=== PATIENT | female | born 1955 | race Caucasian/White ===

== ENCOUNTER 2022-01-04 10:13 | Inpatient (IN) | payer OTHER ==
[~2022-01-04] VITALS: Ht 147.3 cm; Wt 39.2 kg
[~2022-01-04 10:13] MED LIST: ALBU2.5V8 IH; ASPI-630 PO; ATOR40TA59 PO; CARV6.2511 PO; DICY20TA PO; ESOM40CA PO; FLUT12AE IH; FLUT12AE2 IH; FURO20TA3 PO; GABA300C18 PO; LIDO700A21 TP; LISI10TA16 PO; QUET25TA5 PO; SPIR25TA5 PO; SUCR1TAB PO; TRAZ-118 PO; VENL150T PO
[2022-01-04] MEDS ORDERED: ONDANSETRON PF 4 MG/2 ML VIAL. IVP ONE ×2 (10:45→11:00)
[2022-01-04] MEDS ORDERED: IOHEXOL 300 MG/ML 100ML VIAL. IV ONE ×3 (11:00→15:00)
[2022-01-04] MEDS ORDERED: CONTRAST GIVEN. MC PRN ×3 (11:00→15:15)
[2022-01-04] MEDS ORDERED: FAMOTIDINE 20 MG/2 ML VIAL IVP ONE (11:00)
[2022-01-04] MEDS ORDERED: IV NORMAL SALINE 1000ML BAG 1,000 ML IV SCH (11:00)
--- NOTE | 2022-01-04 11:16 | RAD ---
EXAM: XR CHEST 1V 01/04/2022 10:54 AM CLINICAL INDICATION: Abdominal pain, epigastric pain COMPARISON: Abdominal series radiograph 07/21/2021 TECHNIQUE: AP view of the chest FINDINGS: The heart is normal in size. The lungs are well-expanded. There is a large left hilar mass measuring 4.8 x 3.5 cm. There is also fullness in the left hilar region which could represent lymphad enopathy. Patchy opacities in the right lung and left lung base have resolved. The lungs are well-exp anded. There is no pleural effusion or pneumothorax. No acute osseous abnormality. IMPRESSION: Large left hilar mass measuring 4.8 cm suspicious for malignancy. [facility] FOR INTERNAL CODING PURPOSES Critical result: Findings discussed with RODGER BAHENA DO at 01/04/2022 11:14 AM. RESULT CODE: (C) Electronically signed by: Yessy Marte MD (01/04/2022 11:14 AM) [id number]
[2022-01-04] MEDS ORDERED: MORPHINE SULFATE 4 MG/ML INJ. IVP ONE (12:00)
--- NOTE | 2022-01-04 13:01 | EKG ---
[facility] [address] [place] [address] Test Date: 2022-01-04 Test Time: 11:56:24 Pat Name: KVNG CHRISTIE Department: Room: Gender: F Estimator And Drafter: : 1955 Requested By: RODGER BAHENA Order Number: [id number] Reading MD: Jeffy Traylor Measurements Intervals [place] Rate: 76 P: 57 ME: 130 QRS: 91 QRSD: 80 T: 40 QT: 394 QTc: 448 Interpretive Statements SINUS RHYTHM RIGHTWARD AXIS Electronically Signed On 01-05-2022 16:34:[address] REPAIRER by Jeffy Traylor
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
[2022-01-04 13:59] LABS: BILIRUBIN,URINE NEGATIVE (NEG); CLARITY,URINE CLEAR; COLOR,URINE YELLOW; NITRITE,URINE NEGATIVE (NEG); PROTEIN,URINE NEGATIVE (NEG-TRACE); UROBILINOGEN,URINE 0.2 mg/dL (0.2 mg/dL)
[2022-01-04 14:09] LABS: BACTERIA,URINE 0 /HPF (0-FEW); RBC,URINE 0 /HPF (0-2)
[2022-01-04 14:41] LABS: CALCIUM 8.9 mg/dL (8.5-10.1); CREATININE 0.6 mg/dL (0.6-1.0); GFR 99.4; POTASSIUM 4.8 mmol/L (3.5-5.1)
[2022-01-04 14:45] LABS: BASO # 0.1 x10^3/uL (0.0-0.2); BASO % 1 % (0-3); EOS % 0 % (0-3); HEMATOCRIT 38.5 % (36.0-47.0); HEMOGLOBIN 12.3 g/dL (12.0-15.5); LYMPH % 19 % (24-48); MEAN CORPUSCULAR HEMOGLOBIN 26 pg (25-35); MEAN CORPUSCULAR HGB CONC 32 g/dL (31-37); MEAN CORPUSCULAR VOLUME 82 fL (79-100); MONO # 0.9 x10^3/uL (0.0-1.1); MONO % 8 % (0-9); NEUT # 7.7 x10^3/uL (1.8-7.7); NEUT % 72 % (31-73); PLATELET COUNT 381 x10^3/uL (140-400); RED CELL DISTRIBUTION WIDTH 18.9 % (11.5-14.5); WHITE BLOOD COUNT 10.7 x10^3/uL (4.0-11.0)
[2022-01-04 14:47] LABS: ALBUMIN 3.4 g/dL (3.4-5.0); DIRECT BILIRUBIN 0.2 mg/dL (0.0-0.2); TOTAL BILIRUBIN 0.4 mg/dL (0.2-1.0)
--- NOTE | 2022-01-04 15:30 | EKG ---
[facility] [address] [place] [address] Test Date: 2022-01-04 Test Time: 14:46:46 Pat Name: KVNG CHRISTIE Department: Room: Gender: F Digital Marketing Lead: : 1955 Requested By: RODGER BAHENA Order Number: [id number] Reading MD: Jeffy Traylor Measurements Intervals [place] Rate: 30 P: 43 IN: 130 QRS: 47 QRSD: 78 T: 48 QT: 554 QTc: 393 Interpretive Statements SINUS BRADYCARDIA LEFT ATRIAL ABNORMALITY MODERATE AMPLITUDE CRITERIA FOR LVH Electronically Signed On 01-05-2022 16:33:52 MACHINE FORMER by Jeffy Traylor
[2022-01-04] MEDS: NICOTINE 14MG PATCH. TD SCH (16:18)
--- NOTE | 2022-01-04 16:22 | RAD ---
EXAM: CT OF THE CHEST, ABDOMEN AND PELVIS WITH/WITHOUT CONTRAST. HISTORY: Left hilar mass, chest/abdominal pain. TECHNIQUE: Computed tomography of the chest, abdomen and pelvis was performed performed before and af ter the intravenous administration of iodinated contrast Isovue 370. One or more of the following ind ividualized dose reduction techniques were utilized for this examination: 1. Automated exposure control. 2. Adjustment of the mA and/or kV according to patient size. 3. Use of iterative reconstruction technique. COMPARISON: Today's chest radiograph, 07/20/2021. FINDINGS: Bone windows reveal no suspicious lesions. A left upper lobe mass measures 4.3 x 3.7 cm. Is lymph node metastases are noted within the lateral a ortic station measuring 2.6 x 1.5 cm. These are contiguous with left suprahilar nodes measuring up to 1.7 x 1.3 cm. A lower right paratracheal node is indeterminate in this setting at 1.5 x 0.9 cm. Left axillary nodes are small but rounded and avidly enhancing, also indeterminate at up to 1.0 x 0.9 cm. There is no pleural or pericardial effusion. The heart is not enlarged. Coronary atherosclerotic calc ifications are noted. Lung windows reveal no infiltrates. Hypoenhancing hepatic lesions are consistent with metastatic disease. A segment 2 lesion measures 3.9 x 3.4 cm. Another in segment 4A measures 3.2 x 3.0 cm. Another and IVb measures 2.7 cm. A left adren al nodule is consistent with a metastasis and measures 2.3 x 1.6 cm. Gallstones are noted. Mild gallbladder wall thickening is suspected. A stone is suspected within the distal common duct just proximal to the ampulla measuring 4 mm. The common duct measures 7 mm. The spleen, pancreas and kidneys are unremarkable. There are no pathologically enlarged retroperitone al or mesenteric lymph nodes. There is no small bowel obstruction. An anastomotic suture line is noted along a small bowel loop in the right lower quadrant. There is stranding within the omental fat in the right lower quadrant. Ther e is no ascites. The uterus is surgically absent. IMPRESSION: 1. 4.3 x 3.7 cm left upper lobe mass consistent with primary bronchogenic carcinoma. 2. Metastatic disease involves the mediastinal lymph nodes, the liver and left adrenal gland. Left ax illary nodes are indeterminate. 3. Cholelithiasis with mild gallbladder wall thickening. Correlate with other data to exclude acute c holecystitis. 4. Suspect a common duct stone at the ampulla. Borderline biliary dilatation. MRCP or ERCP could furt her evaluate. 5. Stranding within the omental fat in the right lower quadrant may reflect an edematous state. Carci nomatosis cannot be fully excluded in this setting. Electronically signed by: Shemar Melendez MD (01/04/2022 4:20 PM) [facility]
--- NOTE | 2022-01-04 17:43 | RAD ---
INDICATION: Reason: abd pain, cholelithiasis, r/o cholecystitis / Spl. Instructions: / History: COMPARISON: CT from same day TECHNIQUE: Grayscale and color ultrasound images obtained through the abdomen. FINDINGS: Pancreas: Not well seen secondary to overlying structures obscuring. Liver: Coarsened liver echotexture. Multiple masses are seen within the liver including one in the le ft lobe measuring up to 40 x 37 mm and a couple in the right lobe measuring 24 x 27 and 39 x 26 mm Gallbladder: Gallstones. There is some pain within the area. Common Bile Duct: Not dilated. Right Kidney: No hydronephrosis. Aorta/IVC: Atherosclerotic disease IMPRESSION: * Multiple liver masses concerning for neoplasm. * Gallstones are identified with pain to transducer pressure in the right upper quadrant. The wall i s borderline in thickness. Electronically signed by: Clifton Honeycutt MD (01/04/2022 5:41 PM) [id number]
[2022-01-04] MEDS ORDERED: SUCRALFATE 1 GM TABLET. PO PRN (18:15)
[2022-01-04] MEDS ORDERED: GABAPENTIN 300 MG CAPSULE. PO PRN (18:15)
[2022-01-04] MEDS: CARVEDILOL 6.25 MG TABLET. PO SCH (18:30)
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
[2022-01-04 19:00] VITALS: BP 117/75
[2022-01-04] MEDS: BUDESONIDE 0.5 MG/2 ML NEBU. NEB SCH (20:00)
[2022-01-04] MEDS: traZODone 50 MG TABLET. PO SCH (20:24)
[2022-01-04] MEDS: DICYCLOMINE HCL 10 MG CAPSULE PO PRN (20:25)
[2022-01-04] MEDS: ATORVASTATIN CALCIUM 40 MG TABLET. PO SCH (20:25)
[2022-01-04] MEDS: QUEtiapine 25 MG TABLET. PO SCH (20:25)
[2022-01-04] MEDS: LISINOPRIL 10 MG TABLET PO SCH (20:25)
[2022-01-04] MEDS ORDERED: FLUTICASONE PROPIONATE IH SCH (21:00)
[2022-01-04] MEDS: MORPHINE SULFATE 2 MG/ML INJ. IVP PRN (23:12)
[2022-01-04] MEDS: ONDANSETRON PF 4 MG/2 ML VIAL. IVP PRN (23:12)
[2022-01-04] MEDS ORDERED: LIDO:MAALOX 1:1 20 ML SINGLE DOSE. PO PRN (23:15)
[2022-01-04 23:24] VITALS: BP 109/51
[2022-01-05] MEDS: MORPHINE SULFATE 2 MG/ML INJ. IVP PRN ×5 (01:12→19:26)
[2022-01-05] MEDS: ONDANSETRON PF 4 MG/2 ML VIAL. IVP PRN ×4 (03:59→19:26)
[2022-01-05 07:00] VITALS: BP 106/62
[2022-01-05] MEDS: PANTOPRAZOLE 40 MG TABLET.DR. PO SCH (07:30)
[2022-01-05] MEDS: BUDESONIDE 0.5 MG/2 ML NEBU. NEB SCH ×2 (08:00→21:06)
[2022-01-05] MEDS: VENLAFAXINE XR 37.5 MG CAP.ER.24H. PO SCH (08:27)
[2022-01-05] MEDS: FUROSEMIDE 20 MG TABLET PO SCH (08:28)
[2022-01-05] MEDS: ASPIRIN CHEWABLE 81 MG TABLET. PO SCH (08:28)
[2022-01-05] MEDS: SPIRONOLACTONE 25 MG TABLET PO SCH (08:28)
[2022-01-05] MEDS: CARVEDILOL 6.25 MG TABLET. PO SCH ×2 (08:29→17:15)
[2022-01-05] MEDS: NICOTINE 14MG PATCH. TD SCH (08:31)
--- NOTE | 2022-01-05 09:36 | PDOC2 ---
CONSULT Date of Consult Date of Consult DATE: 01/05/22 TIME: 09:32 Reason for Consult Reason for Consult: Lung mass and liver metastasis Referring Physician Referring Physician: Dr. Carmona Identification/Chief Complaint Chief Complaint Abdominal pain and chest pain Source Source: Chart review, Patient History of Present Illness Reason for Visit: Hansa Skinner is a 66-year-old female who has been admitted to [facility] after presenting with abdominal pain. She received a chest x-ray which showed a left hilar mass. CT of the chest, abdomen and pelvis was obtained for further evaluation and showed a 4.3 x 3.7 cm left upper lobe mass concerning for primary bronchogenic carcinoma. In addition, mediastinal lymphadenopathy, liver masses and left adrenal gland mass was noted. CT also showed cholelithiasis with gallbladder thickening as well as choledocholithiasis with a stone at the ampulla. Additional evaluation was recommended. Stranding in the omental fat in the right lower quadrant was noted. Ultrasound abdomen was obtained for further evaluation and showed pericholecystic fluid and tenderness to palpation indicative of sonographic Dolan sign. Medical oncology consultation has been requested given the patient's presentation with suspected metastatic cancer. 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 Status: Acute Current Medications Current Medications Current Medications Ondansetron HCl (Zofran) 4 mg 1X ONCE IVP Last administered on 01/04/22at 10:45; Start 01/04/22 at 10:45; Stop 01/04/22 at 10:46; Status DC Sodium Chloride 1,000 ml @ 1,000 mls/hr Q1H IV Last administered on 01/04/22at 11:00; Start 01/04/22 at 11:00; Stop 01/04/22 at 11:59; Status DC Ondansetron HCl (Zofran) 4 mg 1X ONCE IVP Last administered on 01/04/22at 14:23; Start 01/04/22 at 11:00; Stop 01/04/22 at 11:01; Status DC Famotidine (Pepcid Vial) 20 mg 1X ONCE IVP Last administered on 01/04/22at 11:57; Start 01/04/22 at 11:00; Stop 01/04/22 at 11:01; Status DC Iohexol (Omnipaque 300 Mg/ml) 75 ml 1X ONCE IV ; Start 01/04/22 at 11:00; Stop 01/04/22 at 11:01; Status DC Info (CONTRAST GIVEN -- Rx MONITORING) 1 each PRN DAILY PRN MC SEE COMMENTS; Start 01/04/22 at 11:00; Stop 01/06/22 at 10:59; Status Cancel Morphine Sulfate (Morphine Sulfate) 4 mg 1X ONCE IVP Last administered on 01/04/22at 12:00; Start 01/04/22 at 12:00; Stop 01/04/22 at 12:01; Status DC Iohexol (Omnipaque 300 Mg/ml) 75 ml 1X ONCE IV ; Start 01/04/22 at 15:00; Stop 01/04/22 at 15:01; Status DC Info (CONTRAST GIVEN -- Rx MONITORING) 1 each PRN DAILY PRN MC SEE COMMENTS; Start 01/04/22 at 15:00; Stop 01/06/22 at 14:59 Iohexol (Omnipaque 300 Mg/ml) 75 ml 1X ONCE IV Last administered on 01/04/22at 15:00; Start 01/04/22 at 15:00; Stop 01/04/22 at 15:03; Status DC Info (CONTRAST GIVEN -- Rx MONITORING) 1 each PRN DAILY PRN MC SEE COMMENTS; Start 01/04/22 at 15:15; Stop 01/06/22 at 15:14 Nicotine (Nicoderm Cq 14mg) 1 patch DAILY TD Last administered on 01/05/22at 08:31; Start 01/04/22 at 16:30 Aspirin (Aspirin Chewable) 81 mg DAILY PO Last administered on 01/05/22at 08:28; Start 01/05/22 at 09:00 Atorvastatin Calcium (Lipitor) 40 mg HS PO Last administered on 01/04/22at 20:25; Start 01/04/22 at 21:00 Carvedilol (Coreg) 6.25 mg BIDWMEALS PO Last administered on 01/05/22at 08:29; Start 01/04/22 at 18:30 Furosemide (Lasix) 20 mg DAILY PO Last administered on 01/05/22at 08:28; Start 01/05/22 at 09:00 Gabapentin (Neurontin) 300 mg PRN BID PRN PO HEADACHE; Start 01/04/22 at 18:15 Lisinopril (Prinivil) 10 mg QHS PO Last administered on 01/04/22at 20:25; Start 01/04/22 at 21:00 Quetiapine Fumarate (SEROquel) 25 mg HS PO Last administered on 01/04/22at 20:25; Start 01/04/22 at 21:00 Spironolactone (Aldactone) 25 mg DAILY PO Last administered on 01/05/22at 08:28; Start 01/05/22 at 09:00 Sucralfate (Carafate) 1 gm PRN DAILY PRN PO NAUSEA/VOMITING; Start 01/04/22 at 18:15 Trazodone HCl (Desyrel) 50 mg HS PO Last administered on 01/04/22at 20:24; Start 01/04/22 at 21:00 Dicyclomine HCl (Bentyl) 20 mg PRN BID PRN PO ABDOMINAL CRAMPS Last administered on 01/04/22at 20:25; Start 01/04/22 at 18:30 Pantoprazole Sodium (Protonix) 40 mg DAILYAC PO ; Start 01/05/22 at 07:30 Non-Formulary Medication (Fluticasone Propionate (Flovent 220MCG Hfa)) 12 gm BID IH ; Start 01/04/22 at 21:00; Stop 01/04/22 at 18:39; Status DC Venlafaxine HCl (Effexor Xr) 150 mg DAILY PO Last administered on 01/05/22at 08:27; Start 01/05/22 at 09:00 Budesonide (Pulmicort) 0.5 mg RTBID NEB ; Start 01/04/22 at 20:00 Morphine Sulfate (Morphine Sulfate) 2 mg PRN Q2HR PRN IVP SEVERE PAIN 7-10 Last administered on 01/05/22at 03:59; Start 01/04/22 at 23:15 Ondansetron HCl (Zofran) 4 mg PRN Q4HRS PRN IVP NAUSEA/VOMITING 1ST CHOICE Last administered on 01/05/22at 03:59; Start 01/04/22 at 23:15 Multi-Ingredient Mouthwash/Gargle (Gi Cocktail) 20 ml PRN QID PRN PO CHEST PAIN; Start 01/04/22 at 23:15 Active Scripts Active Reported Dicyclomine Hcl 20 Mg Tablet 20 Mg PO PRN BID Gabapentin (Gabapentin) 300 Mg Capsule 300 Mg PO PRN BID PRN Lidocaine PATCH (Lidocaine) 1 Each Adh..patch 1 Each TP PRN DAILY REMOVE AFTER 12 HOURS Sucralfate 1 Gm Tablet 1 Gm PO PRN DAILY PRN Proair Hfa (Albuterol Sulfate) 8.5 Gm Hfa.aer.ad 2 Puff IH PRN Q4HRS PRN 21 Days Flovent 220MCG Hfa (Fluticasone Propionate) 12 Gm Aer.w.adap 12 Gm IH BID Carvedilol (Carvedilol) 6.25 Mg Tablet 6.25 Mg PO BIDWMEALS Furosemide 20 Mg Tablet 20 Mg PO DAILY Aspirin 81 Mg Tab.chew 81 Mg PO DAILY Nexium Capsule (Esomeprazole Magnesium) 40 Mg Capsule.dr 40 Mg PO DAILYAC Atorvastatin Calcium 40 Mg Tablet 40 Mg PO HS Lisinopril 10 Mg Tablet 10 Mg PO QHS Seroquel (Quetiapine Fumarate) 25 Mg Tablet 25 Mg PO HS Spironolactone 25 Mg Tablet 25 Mg PO DAILY Venlafaxine Hcl Er (Venlafaxine Hcl) 150 Mg Tab.er.24 150 Mg PO DAILY Trazodone Hcl 50 Mg Tablet 50 Mg PO HS Allergies Allergies: Coded Allergies: No Known Drug Allergies (Unverified , 07/20/21) Physical Exam General: Alert, Oriented X3 HEENT: Atraumatic Lungs: Clear to auscultation Heart: Regular rate Vitals VITALS Vital Signs Date Time Temp Pulse Resp B/P (MAP) Pulse Ox O2 Delivery O2 Flow Rate FiO2 01/05/22 08:29 97 106/62 01/05/22 08:00 Room Air 01/05/22 07:00 97.8 16 95 97.8 Labs Labs Laboratory Tests Test 01/04/22 13:25 01/04/22 14:04 01/04/22 14:20 Urine Collection Type Unknown Urine Color Yellow Urine Clarity Clear Urine pH 5.0 (<5.0-8.0) Urine Specific [place] 1.025 (1.000-1.030) Urine Protein Negative mg/dL (NEG-TRACE) Urine Glucose (UA) Negative mg/dL (NEG) Urine Ketones (Stick) Trace mg/dL (NEG) Urine Blood Negative (NEG) Urine Nitrite Negative (NEG) Urine Bilirubin Negative (NEG) Urine Urobilinogen Dipstick 0.2 mg/dL (0.2 mg/dL) Urine Leukocyte Esterase Trace (NEG) Urine RBC 0 /HPF (0-2) Urine WBC 1-4 /HPF (0-4) Urine Squamous Epithelial Cells Mod /LPF Urine Bacteria 0 /HPF (0-FEW) Urine Mucus Mod /LPF Sodium Level 131 mmol/L (136-145) Potassium Level 4.8 mmol/L (3.5-5.1) Chloride Level 98 mmol/L (98-107) Carbon Dioxide Level 24 mmol/L (21-32) Anion Gap 9 (6-14) Blood Urea Nitrogen 23 mg/dL (7-20) Creatinine 0.6 mg/dL (0.6-1.0) Estimated GFR (Cockcroft-Gault) 99.4 Glucose Level 84 mg/dL (70-99) Calcium Level 8.9 mg/dL (8.5-10.1) Total Bilirubin 0.4 mg/dL (0.2-1.0) Direct Bilirubin 0.2 mg/dL (0.0-0.2) Aspartate Amino Transf (AST/SGOT) 27 U/L (15-37) Alanine Aminotransferase (ALT/SGPT) 19 U/L (14-59) Alkaline Phosphatase 107 U/L (46-116) Creatine Kinase 29 U/L (26-192) Total Protein 8.0 g/dL (6.4-8.2) Albumin 3.4 g/dL (3.4-5.0) Lipase 53 U/L (73-393) White Blood Count 10.7 x10^3/uL (4.0-11.0) Red Blood Count 4.70 x10^6/uL (3.50-5.40) Hemoglobin 12.3 g/dL (12.0-15.5) Hematocrit 38.5 % (36.0-47.0) Mean Corpuscular Volume 82 fL (79-100) Mean Corpuscular Hemoglobin 26 pg (25-35) Mean Corpuscular Hemoglobin Concent 32 g/dL (31-37) Red Cell Distribution Width 18.9 % (11.5-14.5) Platelet Count 381 x10^3/uL (140-400) Neutrophils (%) (Auto) 72 % (31-73) Lymphocytes (%) (Auto) 19 % (24-48) Monocytes (%) (Auto) 8 % (0-9) Eosinophils (%) (Auto) 0 % (0-3) Basophils (%) (Auto) 1 % (0-3) Neutrophils # (Auto) 7.7 x10^3/uL (1.8-7.7) Lymphocytes # (Auto) 2.0 x10^3/uL (1.0-4.8) Monocytes # (Auto) 0.9 x10^3/uL (0.0-1.1) Eosinophils # (Auto) 0.0 x10^3/uL (0.0-0.7) Basophils # (Auto) 0.1 x10^3/uL (0.0-0.2) Troponin I High Sensitivity 8 ng/L (4-50) Laboratory Tests Test 01/04/22 13:25 01/04/22 14:04 01/04/22 14:20 Urine Collection Type Unknown Urine Color Yellow Urine Clarity Clear Urine pH 5.0 (<5.0-8.0) Urine Specific [place] 1.025 (1.000-1.030) Urine Protein Negative mg/dL (NEG-TRACE) Urine Glucose (UA) Negative mg/dL (NEG) Urine Ketones (Stick) Trace mg/dL (NEG) Urine Blood Negative (NEG) Urine Nitrite Negative (NEG) Urine Bilirubin Negative (NEG) Urine Urobilinogen Dipstick 0.2 mg/dL (0.2 mg/dL) Urine Leukocyte Esterase Trace (NEG) Urine RBC 0 /HPF (0-2) Urine WBC 1-4 /HPF (0-4) Urine Squamous Epithelial Cells Mod /LPF Urine Bacteria 0 /HPF (0-FEW) Urine Mucus Mod /LPF Sodium Level 131 mmol/L (136-145) Potassium Level 4.8 mmol/L (3.5-5.1) Chloride Level 98 mmol/L (98-107) Carbon Dioxide Level 24 mmol/L (21-32) Anion Gap 9 (6-14) Blood Urea Nitrogen 23 mg/dL (7-20) Creatinine 0.6 mg/dL (0.6-1.0) Estimated GFR (Cockcroft-Gault) 99.4 Glucose Level 84 mg/dL (70-99) Calcium Level 8.9 mg/dL (8.5-10.1) Total Bilirubin 0.4 mg/dL (0.2-1.0) Direct Bilirubin 0.2 mg/dL (0.0-0.2) Aspartate Amino Transf (AST/SGOT) 27 U/L (15-37) Alanine Aminotransferase (ALT/SGPT) 19 U/L (14-59) Alkaline Phosphatase 107 U/L (46-116) Creatine Kinase 29 U/L (26-192) Total Protein 8.0 g/dL (6.4-8.2) Albumin 3.4 g/dL (3.4-5.0) Lipase 53 U/L (73-393) White Blood Count 10.7 x10^3/uL (4.0-11.0) Red Blood Count 4.70 x10^6/uL (3.50-5.40) Hemoglobin 12.3 g/dL (12.0-15.5) Hematocrit 38.5 % (36.0-47.0) Mean Corpuscular Volume 82 fL (79-100) Mean Corpuscular Hemoglobin 26 pg (25-35) Mean Corpuscular Hemoglobin Concent 32 g/dL (31-37) Red Cell Distribution Width 18.9 % (11.5-14.5) Platelet Count 381 x10^3/uL (140-400) Neutrophils (%) (Auto) 72 % (31-73) Lymphocytes (%) (Auto) 19 % (24-48) Monocytes (%) (Auto) 8 % (0-9) Eosinophils (%) (Auto) 0 % (0-3) Basophils (%) (Auto) 1 % (0-3) Neutrophils # (Auto) 7.7 x10^3/uL (1.8-7.7) Lymphocytes # (Auto) 2.0 x10^3/uL (1.0-4.8) Monocytes # (Auto) 0.9 x10^3/uL (0.0-1.1) Eosinophils # (Auto) 0.0 x10^3/uL (0.0-0.7) Basophils # (Auto) 0.1 x10^3/uL (0.0-0.2) Troponin I High Sensitivity 8 ng/L (4-50) Assessment/Plan Assessment/Plan Assessment: Lung adenocarcinoma Liver metastasis Acute cholecystitis Abdominal pain Recommendations: -Discussed CT results with patient. Expressed concern for advanced lung cancer. -Recommended biopsy to allow for diagnosis. We discussed the potential risks of biopsy. 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 -Patient states that her brother resides in [place] and she plans on relocating there this week for additional social support. -Discussed options at this time including proceeding with work-up here versus completing this at [place] with her family. She plans on seeking and arranging consultation with medical oncology at [facility] in [place] and I agree that this was reasonable -Recommend surgical consultation for further evaluation of abdominal pain and consideration of surgical intervention for cholecystitis. This may be pursued as outpatient -We will follow while inpatient. Recommend CT-guided biopsy of lung or liver mass if patient plans to proceed with biopsy here. -Rest per primary service TULIO NAVARRETE MD Jan 05, 2022 09:36
[2022-01-05 11:00] VITALS: BP 116/63
--- NOTE | 2022-01-05 12:03 | NUR ---
SW following. Discussed with RN, pt from home, room air, regular, gets around fine. Pt plans to discharge to her brother's home in [place]. RN advised no SW needs at this time. SW will continue to follow.
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
[2022-01-05 15:00] VITALS: BP 105/61
[2022-01-05] MEDS ORDERED: DOCUSATE SODIUM 100 MG CAPSULE. PO PRN (18:30)
[2022-01-05 19:00] VITALS: BP 88/42
[2022-01-05] MEDS: LISINOPRIL 10 MG TABLET PO SCH (20:14)
[2022-01-05] MEDS: DICYCLOMINE HCL 10 MG CAPSULE PO PRN (20:44)
[2022-01-05] MEDS: QUEtiapine 25 MG TABLET. PO SCH (20:44)
[2022-01-05] MEDS: traZODone 50 MG TABLET. PO SCH (20:44)
[2022-01-05] MEDS: ATORVASTATIN CALCIUM 40 MG TABLET. PO SCH (20:44)
[2022-01-06] MEDS: ONDANSETRON PF 4 MG/2 ML VIAL. IVP PRN (06:10)
[2022-01-06] MEDS: MORPHINE SULFATE 2 MG/ML INJ. IVP PRN ×4 (06:10→13:41)
[2022-01-06 07:00] VITALS: BP 101/58
[2022-01-06] MEDS: BUDESONIDE 0.5 MG/2 ML NEBU. NEB SCH ×2 (07:46→20:03)
[2022-01-06] MEDS: CARVEDILOL 6.25 MG TABLET. PO SCH ×3 (08:00→17:00)
[2022-01-06] MEDS: DICYCLOMINE HCL 10 MG CAPSULE PO PRN ×2 (08:27→20:00)
[2022-01-06] MEDS: POLYETHYLENE GLYCOL 3350 17 GM PACKET. PO PRN (08:27)
[2022-01-06] MEDS: NICOTINE 14MG PATCH. TD SCH (08:27)
[2022-01-06] MEDS: PANTOPRAZOLE 40 MG TABLET.DR. PO SCH (08:28)
[2022-01-06] MEDS: ASPIRIN CHEWABLE 81 MG TABLET. PO SCH (08:28)
[2022-01-06] MEDS: VENLAFAXINE XR 37.5 MG CAP.ER.24H. PO SCH (08:28)
[2022-01-06] MEDS: FUROSEMIDE 20 MG TABLET PO SCH ×2 (08:29→09:00)
[2022-01-06] MEDS: SPIRONOLACTONE 25 MG TABLET PO SCH ×2 (08:29→09:00)
[2022-01-06 11:00] VITALS: BP 100/54
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
[2022-01-06] MEDS ORDERED: oxyCODONE/APAP 5/325 1 TAB TABLET PO PRN (12:00)
[2022-01-06] MEDS: GABAPENTIN 300 MG CAPSULE. PO SCH ×2 (14:15→19:59)
[2022-01-06 14:51] VITALS: BP 108/60
[2022-01-06] MEDS: oxyCODONE/APAP 5/325 1 TAB TABLET PO PRN ×2 (15:57→19:59)
[2022-01-06 19:00] VITALS: BP 102/57
[2022-01-06] MEDS: LISINOPRIL 10 MG TABLET PO SCH (19:59)
[2022-01-06] MEDS: QUEtiapine 25 MG TABLET. PO SCH (19:59)
[2022-01-06] MEDS: ATORVASTATIN CALCIUM 40 MG TABLET. PO SCH (19:59)
[2022-01-06] MEDS: traZODone 50 MG TABLET. PO SCH (20:00)
[2022-01-07 03:00] VITALS: BP 98/47
[2022-01-07 07:00] VITALS: BP 97/46
[2022-01-07] MEDS: BUDESONIDE 0.5 MG/2 ML NEBU. NEB SCH ×2 (07:37→19:55)
[2022-01-07] MEDS: CARVEDILOL 6.25 MG TABLET. PO SCH ×2 (08:00→17:00)
[2022-01-07] MEDS: VENLAFAXINE XR 37.5 MG CAP.ER.24H. PO SCH (08:53)
[2022-01-07] MEDS: PANTOPRAZOLE 40 MG TABLET.DR. PO SCH (08:53)
[2022-01-07] MEDS: ASPIRIN CHEWABLE 81 MG TABLET. PO SCH (08:53)
[2022-01-07] MEDS: SPIRONOLACTONE 25 MG TABLET PO SCH (09:00)
[2022-01-07] MEDS: GABAPENTIN 300 MG CAPSULE. PO SCH ×3 (09:00→20:14)
[2022-01-07] MEDS: FUROSEMIDE 20 MG TABLET PO SCH (09:00)
[2022-01-07] MEDS: oxyCODONE/APAP 5/325 1 TAB TABLET PO PRN ×3 (09:01→20:14)
[2022-01-07] MEDS: NICOTINE 14MG PATCH. TD SCH (09:01)
[2022-01-07] MEDS: POLYETHYLENE GLYCOL 3350 17 GM PACKET. PO PRN (09:01)
[2022-01-07] MEDS: ONDANSETRON PF 4 MG/2 ML VIAL. IVP PRN ×2 (13:37→20:12)
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
[2022-01-07 19:00] VITALS: BP 102/71
[2022-01-07] MEDS: LISINOPRIL 10 MG TABLET PO SCH (20:12)
[2022-01-07] MEDS: traZODone 50 MG TABLET. PO SCH (20:13)
[2022-01-07] MEDS: QUEtiapine 25 MG TABLET. PO SCH (20:13)
[2022-01-07] MEDS: ATORVASTATIN CALCIUM 40 MG TABLET. PO SCH (20:14)
[2022-01-07 23:00] VITALS: BP 86/50
[2022-01-08] VITALS (7 sets, daily range): BP systolic 87–117; BP diastolic 47–61
[2022-01-08] MEDS: oxyCODONE/APAP 5/325 1 TAB TABLET PO PRN ×4 (02:30→20:28)
[2022-01-08] MEDS: ONDANSETRON PF 4 MG/2 ML VIAL. IVP PRN ×3 (06:19→20:28)
[2022-01-08] MEDS: CARVEDILOL 6.25 MG TABLET. PO SCH ×2 (08:00→17:00)
[2022-01-08] MEDS: BUDESONIDE 0.5 MG/2 ML NEBU. NEB SCH ×2 (08:37→20:39)
[2022-01-08] MEDS: FUROSEMIDE 20 MG TABLET PO SCH (09:00)
[2022-01-08] MEDS: SPIRONOLACTONE 25 MG TABLET PO SCH (09:00)
[2022-01-08] MEDS: POLYETHYLENE GLYCOL 3350 17 GM PACKET. PO PRN (09:26)
[2022-01-08] MEDS: NICOTINE 14MG PATCH. TD SCH (09:27)
[2022-01-08] MEDS: VENLAFAXINE XR 37.5 MG CAP.ER.24H. PO SCH (09:27)
[2022-01-08] MEDS: GABAPENTIN 300 MG CAPSULE. PO SCH ×3 (09:28→20:23)
[2022-01-08] MEDS: ASPIRIN CHEWABLE 81 MG TABLET. PO SCH (09:28)
[2022-01-08] MEDS: PANTOPRAZOLE 40 MG TABLET.DR. PO SCH (09:28)
--- NOTE | 2022-01-08 10:51 | NUR ---
SW following. Discussed with RN, pt planning to discharge to a hotel and then fly to [place] to live with sister. RN anticipates discharge today. RN advised no SW needs at this time. SW will continue to follow.
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
[2022-01-08] MEDS ORDERED: IV NORMAL SALINE 1000ML BAG 1,000 ML IV ONE (11:00)
[2022-01-08] MEDS: PROCHLORPERAZINE 10 MG/2 ML VIAL. IV PRN (14:02)
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
[2022-01-08] MEDS: QUEtiapine 25 MG TABLET. PO SCH (20:23)
[2022-01-08] MEDS: traZODone 50 MG TABLET. PO SCH (20:23)
[2022-01-08] MEDS: LISINOPRIL 10 MG TABLET PO SCH (20:23)
[2022-01-08] MEDS: ATORVASTATIN CALCIUM 40 MG TABLET. PO SCH (20:27)
[2022-01-09] MEDS: oxyCODONE/APAP 5/325 1 TAB TABLET PO PRN ×3 (02:28→14:43)
[2022-01-09 03:00] VITALS: BP 96/51
[2022-01-09 07:00] VITALS: BP 154/67
[2022-01-09] MEDS: BUDESONIDE 0.5 MG/2 ML NEBU. NEB SCH (08:00)
[2022-01-09] MEDS: NICOTINE 14MG PATCH. TD SCH (09:00)
[2022-01-09] MEDS: PANTOPRAZOLE 40 MG TABLET.DR. PO SCH (09:07)
[2022-01-09] MEDS: FUROSEMIDE 20 MG TABLET PO SCH (09:08)
[2022-01-09] MEDS: GABAPENTIN 300 MG CAPSULE. PO SCH ×2 (09:08→14:36)
[2022-01-09] MEDS: SPIRONOLACTONE 25 MG TABLET PO SCH (09:08)
[2022-01-09] MEDS: ASPIRIN CHEWABLE 81 MG TABLET. PO SCH (09:08)
[2022-01-09] MEDS: VENLAFAXINE XR 37.5 MG CAP.ER.24H. PO SCH (09:08)
[2022-01-09] MEDS: CARVEDILOL 6.25 MG TABLET. PO SCH ×2 (09:09→16:22)
[2022-01-09 11:00] VITALS: BP 99/57
[2022-01-09] MEDS: ONDANSETRON PF 4 MG/2 ML VIAL. IVP PRN (11:04)
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
[2022-01-09] MEDS ORDERED: AMOXICILLIN/K CLAV 500/125MG TABLET. PO SCH (12:45)
[2022-01-09] MEDS ORDERED: ONDA4TAB12 PO (13:36)
[2022-01-09] MEDS ORDERED: OXYC1TAB15 PO (13:36)
[2022-01-09] MEDS ORDERED: CEFU250T59 PO (13:36)
[2022-01-09] MEDS ORDERED: ONDANSETRON ODT 4 MG TAB.RAPDIS. PO PRN (13:45)
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
[2022-01-09 14:36] LABS: BASO # 0.1 x10^3/uL (0.0-0.2); BASO % 1 % (0-3); EOS # 0.1 x10^3/uL (0.0-0.7); EOS % 1 % (0-3); HEMATOCRIT 30.2 % (36.0-47.0); HEMOGLOBIN 9.5 g/dL (12.0-15.5); LYMPH # 1.2 x10^3/uL (1.0-4.8); LYMPH % 14 % (24-48); MEAN CORPUSCULAR HEMOGLOBIN 26 pg (25-35); MEAN CORPUSCULAR HGB CONC 31 g/dL (31-37); MEAN CORPUSCULAR VOLUME 83 fL (79-100); MONO # 0.9 x10^3/uL (0.0-1.1); MONO % 10 % (0-9); NEUT # 6.8 x10^3/uL (1.8-7.7); NEUT % 75 % (31-73); PLATELET COUNT 261 x10^3/uL (140-400); RED BLOOD COUNT 3.62 x10^6/uL (3.50-5.40); RED CELL DISTRIBUTION WIDTH 18.2 % (11.5-14.5); WHITE BLOOD COUNT 9.1 x10^3/uL (4.0-11.0)
[2022-01-09] MEDS: PROCHLORPERAZINE 10 MG/2 ML VIAL. IV PRN (14:36)
[2022-01-09 14:51] LABS: ALBUMIN 2.5 g/dL (3.4-5.0); ALBUMIN/GLOBULIN RATIO 0.6 (1.0-1.7); CALCIUM 7.6 mg/dL (8.5-10.1); CREATININE 0.8 mg/dL (0.6-1.0); GFR 71.3; POTASSIUM 4.3 mmol/L (3.5-5.1); TOTAL BILIRUBIN 0.3 mg/dL (0.2-1.0); TOTAL PROTEIN 6.8 g/dL (6.4-8.2)
[2022-01-09 15:00] VITALS: BP 109/68
[2022-01-09 16:22] VITALS: BP 109/68
== END 2022-01-09 18:00 | disposition home or self-care (01) | DRG 436 ==
LOC: ER 10:13 → EEVIPCON 10:13 → 5 NORTH 17:16 → 4 NORTH 01-08 22:47
PROVIDERS: ADMIT Student in an Organized Health Care Education/Training Program; ATTEND Student in an Organized Health Care Education/Training Program
DX: C78.7 Secondary malignant neoplasm of liver and intrahepatic bile duct (principal); K80.62 Calculus of gallbladder and bile duct with acute cholecystitis without obstruction; C34.90 Malignant neoplasm of unspecified part of unspecified bronchus or lung; E27.9 Disorder of adrenal gland, unspecified; E78.5 Hyperlipidemia, unspecified; I10 Essential (primary) hypertension; I25.10 Atherosclerotic heart disease of native coronary artery without angina pectoris; G89.29 Other chronic pain; K21.9 Gastro-esophageal reflux disease without esophagitis; J44.9 Chronic obstructive pulmonary disease, unspecified; Z82.49 Family history of ischemic heart disease and other diseases of the circulatory system; Z87.891 Personal history of nicotine dependence; Z90.710 Acquired absence of both cervix and uterus; I25.2 Old myocardial infarction
CPT/HCPCS: 36415; 71045; 71260; 74177; 76705; 80048; 80053; 80076; 81001; 82550; 83690; 84484; 85025; 87086; 87147; 93005; 94640; 96361; 96374; 96375; 96376; J0780; J2270; J2405; J3490; J7030; Q9967; 99285-25; G0378; J7626

== ENCOUNTER 2022-01-16 13:42 | Inpatient (IN) | payer OTHER ==
[~2022-01-16] VITALS: Ht 147.3 cm; Wt 44.8 kg
[~2022-01-16 13:42] MED LIST changes: +CEFU250T59 PO; +ONDA4TAB12 PO; +OXYC1TAB15 PO
[2022-01-16] MEDS ORDERED: MORPHINE SULFATE 4 MG/ML INJ. IVP ONE ×2 (14:45→17:45)
[2022-01-16] MEDS ORDERED: ONDANSETRON PF 4 MG/2 ML VIAL. IVP ONE ×2 (14:45→17:45)
[2022-01-16 14:56] LABS: BILIRUBIN,URINE NEGATIVE (NEG); CLARITY,URINE HAZY; COLOR,URINE YELLOW; PROTEIN,URINE 30 mg/dL (NEG-TRACE)
[2022-01-16 14:57] LABS: NITRITE,URINE NEGATIVE (NEG)
[2022-01-16 14:58] LABS: BACTERIA,URINE 0 /HPF (0-FEW); HYALINE CASTS, URINE FEW /HPF; RBC,URINE 0 /HPF (0-2); WBC,URINE 0 /HPF (0-4)
[2022-01-16 15:03] LABS: BASO # 0.1 x10^3/uL (0.0-0.2); BASO % 1 % (0-3); EOS % 0 % (0-3); HEMATOCRIT 37.6 % (36.0-47.0); HEMOGLOBIN 11.9 g/dL (12.0-15.5); LYMPH # 1.4 x10^3/uL (1.0-4.8); LYMPH % 13 % (24-48); MEAN CORPUSCULAR HEMOGLOBIN 26 pg (25-35); MEAN CORPUSCULAR HGB CONC 32 g/dL (31-37); MEAN CORPUSCULAR VOLUME 83 fL (79-100); MONO # 0.6 x10^3/uL (0.0-1.1); MONO % 6 % (0-9); NEUT # 8.7 x10^3/uL (1.8-7.7); NEUT % 80 % (31-73); PLATELET COUNT 350 x10^3/uL (140-400); RED BLOOD COUNT 4.54 x10^6/uL (3.50-5.40); RED CELL DISTRIBUTION WIDTH 19.2 % (11.5-14.5); WHITE BLOOD COUNT 10.9 x10^3/uL (4.0-11.0)
[2022-01-16 15:18] LABS: CREATININE 0.7 mg/dL (0.6-1.0); GFR 83.2; POTASSIUM 4.4 mmol/L (3.5-5.1)
[2022-01-16] MEDS ORDERED: IV NORMAL SALINE 1000ML BAG 1,000 ML IV ONE (15:30)
[2022-01-16 15:31] LABS: ALBUMIN/GLOBULIN RATIO 0.7 (1.0-1.7); TOTAL BILIRUBIN 0.5 mg/dL (0.2-1.0); TOTAL PROTEIN 7.1 g/dL (6.4-8.2)
--- NOTE | 2022-01-16 15:55 | PHYS DOC ---
Past Medical History Past Medical History: CAD, [place] Additional Past Medical Histor: Chronic abdominal pain, DRUG ABUSE Past Surgical History: Appendectomy, Hysterectomy Additional Past Surgical Histo: SMALL BOWEL RESECTION Smoking Status: Current Every Day Smoker Alcohol Use: None Drug Use: Cocaine General Adult EDM: Chief Complaint: PAIN CONTROL HPI: HPI: Patient is a 66 year old female presented to the ED today complaining of moderate constant abdominal pain. Patient states she was recently diagnosed with lung cancer with metastasis to the abdomen, gallbladder on 01/04/2022. She states she decided she will go to [place] and seek treatment and be with her family. She states the plan to go to [place] has failed. She returns to the ED complaining of pain. She states the hydrocodone she was given is not helping. She also states she is not eating or drinking much. Denies anything specifically exacerbating or relieving her pain. Review of Systems: Review of Systems: Constitutional: Denies fever or chills. [] Eyes: Denies change in visual acuity. [] HENT: Denies nasal congestion or sore throat. [] Respiratory: Denies cough or shortness of breath. [] Cardiovascular: Denies chest pain or edema. [] GI: Reports abdominal pain, denies nausea, vomiting, bloody stools or diarrhea. [] : Denies dysuria. [] Musculoskeletal: Denies back pain or joint pain. [] Integument: Denies rash. [] Neurologic: Denies headache, focal weakness or sensory changes. [] ] Psychiatric: Denies depression or anxiety. [] Heart Score: C/O Chest Pain: N/A Risk Factors: Risk Factors: DM, Current or recent (<one month) smoker, HTN, HLP, family history of CAD, obesity. Risk Scores: Score 0 - 3: 2.5% MACE over next 6 weeks - Discharge Home Score 4 - 6: 20.3% MACE over next 6 weeks - Admit for Clinical Observation Score 7 - 10: 72.7% MACE over next 6 weeks - Early Invasive Strategies Current Medications: Current Medications Medications (Trade) Dose Ordered Sig/Shanti Start Time Stop Time Status Last Admin Dose Admin Morphine Sulfate (Morphine Sulfate) 4 mg 1X ONCE 01/16/22 14:45 01/16/22 14:46 DC 01/16/22 15:04 4 MG Ondansetron HCl (Zofran) 4 mg 1X ONCE 01/16/22 14:45 01/16/22 14:46 DC 01/16/22 15:01 4 MG Sodium Chloride 1,000 ml @ 1,000 mls/hr 1X ONCE 01/16/22 15:30 01/16/22 16:29 01/16/22 15:41 1,000 MLS/HR Allergies: Allergies: Allergies Coded Allergies Type Severity Reaction Last Updated Verified No Known Drug Allergies 07/20/21 No Physical Exam: PE: Constitutional: Thin appearing patient, no acute distress, non-toxic appearance. [] HENT: Normocephalic, atraumatic, bilateral external ears normal, dry mucous membranes, no oral exudates, nose normal. [] Eyes: PERRLA, EOMI, conjunctiva normal, no discharge. [] Neck: Normal range of motion, no tenderness, supple, no stridor. [] Cardiovascular:Heart rate regular rhythm Lungs & Thorax: Bilateral breath sounds clear to auscultation [] Abdomen: Bowel sounds normal, soft, diffuse tenderness throughout the abdomen, no masses, no pulsatile masses. [] Skin: Dry skin Back: No tenderness, no CVA tenderness. [] Extremities: No tenderness, no cyanosis, no clubbing, ROM intact, no edema. [] Neurologic: Alert and oriented X 3, normal motor function, normal sensory function, no focal deficits noted. [] Psychologic: Affect normal, judgement normal, mood normal. [] Current Patient Data: Labs: Laboratory Tests Test 01/16/22 13:57 01/16/22 14:50 Urine Collection Type Unknown Urine Color Yellow Urine Clarity Hazy Urine pH 6.0 (<5.0-8.0) Urine Specific [place] >=1.030 (1.000-1.030) Urine Protein 30 mg/dL (NEG-TRACE) Urine Glucose (UA) Negative mg/dL (NEG) Urine Ketones (Stick) Negative mg/dL (NEG) Urine Blood Negative (NEG) Urine Nitrite Negative (NEG) Urine Bilirubin Negative (NEG) Urine Urobilinogen Dipstick 1.0 mg/dL (0.2 mg/dL) Urine Leukocyte Esterase Negative (NEG) Urine RBC 0 /HPF (0-2) Urine WBC 0 /HPF (0-4) Urine Squamous Epithelial Cells Few /LPF Urine Bacteria 0 /HPF (0-FEW) Urine Hyaline Casts Few /HPF Urine Mucus Slight /LPF White Blood Count 10.9 x10^3/uL (4.0-11.0) Red Blood Count 4.54 x10^6/uL (3.50-5.40) Hemoglobin 11.9 g/dL (12.0-15.5) L Hematocrit 37.6 % (36.0-47.0) Mean Corpuscular Volume 83 fL (79-100) Mean Corpuscular Hemoglobin 26 pg (25-35) Mean Corpuscular Hemoglobin Concent 32 g/dL (31-37) Red Cell Distribution Width 19.2 % (11.5-14.5) H Platelet Count 350 x10^3/uL (140-400) Neutrophils (%) (Auto) 80 % (31-73) H Lymphocytes (%) (Auto) 13 % (24-48) L Monocytes (%) (Auto) 6 % (0-9) Eosinophils (%) (Auto) 0 % (0-3) Basophils (%) (Auto) 1 % (0-3) Neutrophils # (Auto) 8.7 x10^3/uL (1.8-7.7) H Lymphocytes # (Auto) 1.4 x10^3/uL (1.0-4.8) Monocytes # (Auto) 0.6 x10^3/uL (0.0-1.1) Eosinophils # (Auto) 0.0 x10^3/uL (0.0-0.7) Basophils # (Auto) 0.1 x10^3/uL (0.0-0.2) Sodium Level 135 mmol/L (136-145) L Potassium Level 4.4 mmol/L (3.5-5.1) Chloride Level 98 mmol/L (98-107) Carbon Dioxide Level 26 mmol/L (21-32) Anion Gap 11 (6-14) Blood Urea Nitrogen 12 mg/dL (7-20) Creatinine 0.7 mg/dL (0.6-1.0) Estimated GFR (Cockcroft-Gault) 83.2 BUN/Creatinine Ratio 17 (6-20) Glucose Level 109 mg/dL (70-99) H Calcium Level 9.0 mg/dL (8.5-10.1) Total Bilirubin 0.5 mg/dL (0.2-1.0) Aspartate Amino Transferase (AST) 66 U/L (15-37) H Alanine Aminotransferase (ALT) 86 U/L (14-59) H Alkaline Phosphatase 146 U/L (46-116) H Total Protein 7.1 g/dL (6.4-8.2) Albumin 3.0 g/dL (3.4-5.0) L Albumin/Globulin Ratio 0.7 (1.0-1.7) L Laboratory Tests 01/16/22 14:50 Laboratory Tests 01/16/22 14:50 Vital Signs: Vital Signs Date Time Temp Pulse Resp B/P (MAP) Pulse Ox O2 Delivery O2 Flow Rate FiO2 01/16/22 15:04 20 96 Room Air 01/16/22 14:01 97.5 76 138/72 (94) 97.5 EKG: EKG: [] Radiology/Procedures: Radiology/Procedures: [] Course & Med Decision Making: Course & Med Decision Making Pertinent Labs and Imaging studies reviewed. (See chart for details) This is a 66-year-old female patient presented to the ED today complaining of abdominal pain after being diagnosed with lung cancer with metastatic is to the abdomen gallbladder 2 weeks ago. Patient was supposed to go to [place] for treatment and stay with his family but the plan has failed. Labs are negative for any acute findings, patient has had several doses of pain medicine with minimal relief. Spoke with Dr. Aleman who accepted patient for admission Nicanor Disclaimer: Nicanor Disclaimer: This electronic medical record was generated, in whole or in part, using a voice recognition dictation system. Departure Departure Impression: Primary Impression: Intractable abdominal pain Disposition: ADMITTED INPATIENT Condition: STABLE Referrals: MARIANNA BOURNE MD (PCP) CORRIE TURNER MANAGER [employer] Jan 16, 2022 15:55
[2022-01-16] MEDS ORDERED: ACETAMINOPHEN 325 MG TABLET. PO PRN (18:00)
[2022-01-16] MEDS: MORPHINE SULFATE 4 MG/ML INJ. IVP PRN (19:46)
[2022-01-16 20:12] VITALS: BP_SYST 101; BP_SYST 128; BP_DIAS 58; BP_DIAS 68
--- NOTE | 2022-01-16 20:15 | NUR ---
Admit to room 440 w/ c/o abdominal pain and nausea. "I have cancer and I can't get this nausea under control."
[2022-01-16] MEDS: ONDANSETRON PF 4 MG/2 ML VIAL. IVP PRN (21:44)
[2022-01-16 23:22] VITALS: BP 113/64
[2022-01-17] MEDS: MORPHINE SULFATE 4 MG/ML INJ. IVP PRN ×4 (02:43→21:35)
[2022-01-17 03:20] VITALS: BP 148/77
[2022-01-17 07:15] VITALS: BP 151/82
[2022-01-17] MEDS: ONDANSETRON PF 4 MG/2 ML VIAL. IVP PRN ×2 (07:22→15:00)
[2022-01-17 07:44] LABS: BASO # 0.1 x10^3/uL (0.0-0.2); BASO % 1 % (0-3); EOS # 0.1 x10^3/uL (0.0-0.7); EOS % 1 % (0-3); HEMATOCRIT 34.6 % (36.0-47.0); HEMOGLOBIN 10.6 g/dL (12.0-15.5); LYMPH # 1.9 x10^3/uL (1.0-4.8); LYMPH % 19 % (24-48); MEAN CORPUSCULAR HEMOGLOBIN 26 pg (25-35); MEAN CORPUSCULAR HGB CONC 31 g/dL (31-37); MEAN CORPUSCULAR VOLUME 84 fL (79-100); MONO # 0.8 x10^3/uL (0.0-1.1); MONO % 8 % (0-9); NEUT # 7.4 x10^3/uL (1.8-7.7); NEUT % 72 % (31-73); PLATELET COUNT 303 x10^3/uL (140-400); RED BLOOD COUNT 4.13 x10^6/uL (3.50-5.40); RED CELL DISTRIBUTION WIDTH 19.4 % (11.5-14.5); WHITE BLOOD COUNT 10.3 x10^3/uL (4.0-11.0)
--- NOTE | 2022-01-17 08:07 | PDOC1 ---
History and Physical Date of Admission Date of Admission DATE: 01/17/22 TIME: 08:04 History of Present Illness History of Present Illness Hansa Skinner is a 66-year-old female readmitted to [facility] with abdominal pain. Left hilar mass known, CT showed 4.3 x 3.7 cm left upper lobe mass consistent with primary bronchogenic carcinoma. In addition, mediastinal lymphadenopathy, liver masses and left adrenal gland mass was noted. She was DC last week, indended on seeking care in [place] with family and has not done so. DId not get biopsy or treatment here last week, Onc consult, pt refused some thereapy and biopsy as she wanted to establish care elsewhere. Prior DC note had plan to live with her sister in [place], [place] and then likely move to [place] with her brother. Her brother is now driving here today, and has been calling her and he seems to be lost. Past Medical History Cardiovascular: CAD, HTN, [place], Hyperlipidemia Pulmonary: COPD Renal/: No pertinent hx Past Surgical History Past Surgical History: Appendectomy, Hysterectomy Family History Family History: Family History Unknown Social History Smoke: 1 pack per day ALCOHOL: none Drugs: Other (poss prior cocaine listed ) Current Problem List Problem List Problems Medical Problems: (1) Intractable abdominal pain Status: Acute Current Medications Current Medications Current Medications Ondansetron HCl (Zofran) 4 mg 1X ONCE IVP Last administered on 01/16/22at 15:01; Start 01/16/22 at 14:45; Stop 01/16/22 at 14:46; Status DC Morphine Sulfate (Morphine Sulfate) 4 mg 1X ONCE IVP Last administered on 01/16/22at 15:04; Start 01/16/22 at 14:45; Stop 01/16/22 at 14:46; Status DC Sodium Chloride 1,000 ml @ 1,000 mls/hr 1X ONCE IV Last administered on 01/16/22at 15:41; Start 01/16/22 at 15:30; Stop 01/16/22 at 16:29; Status DC Morphine Sulfate (Morphine Sulfate) 4 mg 1X ONCE IVP Last administered on 01/16/22at 17:48; Start 01/16/22 at 17:45; Stop 01/16/22 at 17:46; Status DC Ondansetron HCl (Zofran) 4 mg 1X ONCE IVP Last administered on 01/16/22at 17:45; Start 01/16/22 at 17:45; Stop 01/16/22 at 17:46; Status DC Ondansetron HCl (Zofran) 4 mg PRN Q8HRS PRN IVP NAUSEA/VOMITING Last administered on 01/17/22at 07:22; Start 01/16/22 at 18:00; Stop 01/17/22 at 17:59 Morphine Sulfate (Morphine Sulfate) 4 mg PRN Q2HR PRN IVP PAIN Last administered on 01/17/22at 02:43; Start 01/16/22 at 18:00; Stop 01/17/22 at 17:59 Acetaminophen (Tylenol) 650 mg PRN Q4HRS PRN PO FEVER > 100.3'F; Start 01/16/22 at 18:00; Stop 01/17/22 at 17:59 Active Scripts Active Cefuroxime (Cefuroxime Axetil) 250 Mg Tablet 1 Tab PO BID 3 Days Ondansetron Odt (Ondansetron) 4 Mg Tab.rapdis 4 Mg PO PRN Q6HRS PRN 10 Days Percocet 5-325 Mg Tablet (Oxycodone/Acetaminophen) 1 Each Tablet 1 Tab PO PRN Q4HRS PRN 6 Days Reported Dicyclomine Hcl 20 Mg Tablet 20 Mg PO PRN BID Gabapentin (Gabapentin) 300 Mg Capsule 300 Mg PO PRN BID PRN Lidocaine PATCH (Lidocaine) 1 Each Adh..patch 1 Each TP PRN DAILY REMOVE AFTER 12 HOURS Sucralfate 1 Gm Tablet 1 Gm PO PRN DAILY PRN Proair Hfa (Albuterol Sulfate) 8.5 Gm Hfa.aer.ad 2 Puff IH PRN Q4HRS PRN 21 Days Flovent 220MCG Hfa (Fluticasone Propionate) 12 Gm Aer.w.adap 12 Gm IH BID Carvedilol (Carvedilol) 6.25 Mg Tablet 6.25 Mg PO BIDWMEALS Furosemide 20 Mg Tablet 20 Mg PO DAILY Aspirin 81 Mg Tab.chew 81 Mg PO DAILY Nexium Capsule (Esomeprazole Magnesium) 40 Mg Capsule.dr 40 Mg PO DAILYAC Atorvastatin Calcium 40 Mg Tablet 40 Mg PO HS Lisinopril 10 Mg Tablet 10 Mg PO QHS Seroquel (Quetiapine Fumarate) 25 Mg Tablet 25 Mg PO HS Spironolactone 25 Mg Tablet 25 Mg PO DAILY Venlafaxine Hcl Er (Venlafaxine Hcl) 150 Mg Tab.er.24 150 Mg PO DAILY Trazodone Hcl 50 Mg Tablet 50 Mg PO HS Allergies Allergies: Coded Allergies: No Known Drug Allergies (Unverified , 07/20/21) ROS General: YES: Chills, Fatigue, Malaise PSYCHOLOGICAL ROS: YES: Anxiety, Irritablity Eyes: No Blurry vision, No Decreased vision, No Double vision, No Dry eyes, No Excessive tearing, No Eye Pain, No Itchy Eyes, No Loss of vision, No Photopho frannie, No Scotomata, No Uses contacts, No Uses glasses, No Other HEENT: No: Heacaches, Visual Changes, Hearing change, Nasal congestion, Nasal discharge, Oral lesions, Sinus pain, Sore Throat, Epistaxis, Sneezing, Snoring, Tinnitus, Vertigo, Vocal changes, Other ENDOCRINE: No: Breast Changes, Galactorrhea, Hair Pattern Changes, Hot Flashes, Malaise/lethargy, Mood Swings, Palpitations, Polydipsia/polyuria, Skin Changes, Temperature Intolerance, Unexpected Weight Changes, Other Respiratory: No: Cough, Hemoptysis, Orthopnea, Pleuritic Pain, Shortness of breath, SOB with excertion, Sputum Changes, Stridor, Tachypnea, Wheezing, Other Cardiovascular: No Chest Pain, No Palpitations, No Orthopnea, No Paroxysmal Noc. Dyspnea, No Edema, No Lt Headedness, No Other Gastrointestinal: Yes Nausea, Yes Abdominal Pain Genitourinary: No Dysuria, No Frequency, No Incontinence, No Hematuria, No Retention, No Discharge, No Urgency, No Pain, No Flank Pain, No Other, No , No , No , No , No , No , No Musculoskeletal: Yes Joint Stiffness; No Gait Disturbance, No Joint Pain, No Joint Swelling, No Muscle Pain, No Muscular Weakness, No Pain In:, No Swelling In:, No Other Neurological: No Behavorial Changes, No Bowel/Bladder ControlChng, No Confusion, No Dizziness, No Gait Disturbance, No Headaches, No Impaired Coord/balance, No Memory Loss, No Numbness/Tingling, No Seizures, No Speech Problems, No Tremors, No Visual Changes, No Weakness, No Other Skin: Yes Dry Skin; No Eczema, No Hair Changes, No Lumps, No Mole Changes, No Mottling, No Nail Changes, No Pruritus, No Rash, No Skin Lesion Changes, No Other, No Acne Physical Exam General: Alert, Cooperative, mild distress HEENT: Atraumatic Lungs: Clear to auscultation Abdomen: Other (tender, guards, ) Rectal Exam: not examined Extremities: No clubbing, Normal pulses Skin: No rashes, Other (thin, dry) Neuro: Normal speech, Sensation intact Psych/Mental Status: Mood NL, Other (emotional ) Vitals Vitals Vital Signs Date Time Temp Pulse Resp B/P (MAP) Pulse Ox O2 Delivery O2 Flow Rate FiO2 01/17/22 07:15 98.3 79 18 151/82 (105) 91 Room Air 98.3 Labs Labs Laboratory Tests Test 01/16/22 13:57 01/16/22 14:50 01/16/22 19:00 01/17/22 07:20 Urine Collection Type Unknown Urine Color Yellow Urine Clarity Hazy Urine pH 6.0 (<5.0-8.0) Urine Specific [place] >=1.030 (1.000-1.030) Urine Protein 30 mg/dL (NEG-TRACE) Urine Glucose (UA) Negative mg/dL (NEG) Urine Ketones (Stick) Negative mg/dL (NEG) Urine Blood Negative (NEG) Urine Nitrite Negative (NEG) Urine Bilirubin Negative (NEG) Urine Urobilinogen Dipstick 1.0 mg/dL (0.2 mg/dL) Urine Leukocyte Esterase Negative (NEG) Urine RBC 0 /HPF (0-2) Urine WBC 0 /HPF (0-4) Urine Squamous Epithelial Cells Few /LPF Urine Bacteria 0 /HPF (0-FEW) Urine Hyaline Casts Few /HPF Urine Mucus Slight /LPF White Blood Count 10.9 x10^3/uL (4.0-11.0) 10.3 x10^3/uL (4.0-11.0) Red Blood Count 4.54 x10^6/uL (3.50-5.40) 4.13 x10^6/uL (3.50-5.40) Hemoglobin 11.9 g/dL (12.0-15.5) 10.6 g/dL (12.0-15.5) Hematocrit 37.6 % (36.0-47.0) 34.6 % (36.0-47.0) Mean Corpuscular Volume 83 fL (79-100) 84 fL (79-100) Mean Corpuscular Hemoglobin 26 pg (25-35) 26 pg (25-35) Mean Corpuscular Hemoglobin Concent 32 g/dL (31-37) 31 g/dL (31-37) Red Cell Distribution Width 19.2 % (11.5-14.5) 19.4 % (11.5-14.5) Platelet Count 350 x10^3/uL (140-400) 303 x10^3/uL (140-400) Neutrophils (%) (Auto) 80 % (31-73) 72 % (31-73) Lymphocytes (%) (Auto) 13 % (24-48) 19 % (24-48) Monocytes (%) (Auto) 6 % (0-9) 8 % (0-9) Eosinophils (%) (Auto) 0 % (0-3) 1 % (0-3) Basophils (%) (Auto) 1 % (0-3) 1 % (0-3) Neutrophils # (Auto) 8.7 x10^3/uL (1.8-7.7) 7.4 x10^3/uL (1.8-7.7) Lymphocytes # (Auto) 1.4 x10^3/uL (1.0-4.8) 1.9 x10^3/uL (1.0-4.8) Monocytes # (Auto) 0.6 x10^3/uL (0.0-1.1) 0.8 x10^3/uL (0.0-1.1) Eosinophils # (Auto) 0.0 x10^3/uL (0.0-0.7) 0.1 x10^3/uL (0.0-0.7) Basophils # (Auto) 0.1 x10^3/uL (0.0-0.2) 0.1 x10^3/uL (0.0-0.2) Sodium Level 135 mmol/L (136-145) Potassium Level 4.4 mmol/L (3.5-5.1) Chloride Level 98 mmol/L (98-107) Carbon Dioxide Level 26 mmol/L (21-32) Anion Gap 11 (6-14) Blood Urea Nitrogen 12 mg/dL (7-20) Creatinine 0.7 mg/dL (0.6-1.0) Estimated GFR (Cockcroft-Gault) 83.2 BUN/Creatinine Ratio 17 (6-20) Glucose Level 109 mg/dL (70-99) Calcium Level 9.0 mg/dL (8.5-10.1) Total Bilirubin 0.5 mg/dL (0.2-1.0) Aspartate Amino Transf (AST/SGOT) 66 U/L (15-37) Alanine Aminotransferase (ALT/SGPT) 86 U/L (14-59) Alkaline Phosphatase 146 U/L (46-116) Total Protein 7.1 g/dL (6.4-8.2) Albumin 3.0 g/dL (3.4-5.0) Albumin/Globulin Ratio 0.7 (1.0-1.7) SARS-CoV-2 Antigen (Rapid) Negative (NEGATIVE) Laboratory Tests Test 01/16/22 13:57 01/16/22 14:50 01/16/22 19:00 01/17/22 07:20 Urine Collection Type Unknown Urine Color Yellow Urine Clarity Hazy Urine pH 6.0 (<5.0-8.0) Urine Specific [place] >=1.030 (1.000-1.030) Urine Protein 30 mg/dL (NEG-TRACE) Urine Glucose (UA) Negative mg/dL (NEG) Urine Ketones (Stick) Negative mg/dL (NEG) Urine Blood Negative (NEG) Urine Nitrite Negative (NEG) Urine Bilirubin Negative (NEG) Urine Urobilinogen Dipstick 1.0 mg/dL (0.2 mg/dL) Urine Leukocyte Esterase Negative (NEG) Urine RBC 0 /HPF (0-2) Urine WBC 0 /HPF (0-4) Urine Squamous Epithelial Cells Few /LPF Urine Bacteria 0 /HPF (0-FEW) Urine Hyaline Casts Few /HPF Urine Mucus Slight /LPF White Blood Count 10.9 x10^3/uL (4.0-11.0) 10.3 x10^3/uL (4.0-11.0) Red Blood Count 4.54 x10^6/uL (3.50-5.40) 4.13 x10^6/uL (3.50-5.40) Hemoglobin 11.9 g/dL (12.0-15.5) 10.6 g/dL (12.0-15.5) Hematocrit 37.6 % (36.0-47.0) 34.6 % (36.0-47.0) Mean Corpuscular Volume 83 fL (79-100) 84 fL (79-100) Mean Corpuscular Hemoglobin 26 pg (25-35) 26 pg (25-35) Mean Corpuscular Hemoglobin Concent 32 g/dL (31-37) 31 g/dL (31-37) Red Cell Distribution Width 19.2 % (11.5-14.5) 19.4 % (11.5-14.5) Platelet Count 350 x10^3/uL (140-400) 303 x10^3/uL (140-400) Neutrophils (%) (Auto) 80 % (31-73) 72 % (31-73) Lymphocytes (%) (Auto) 13 % (24-48) 19 % (24-48) Monocytes (%) (Auto) 6 % (0-9) 8 % (0-9) Eosinophils (%) (Auto) 0 % (0-3) 1 % (0-3) Basophils (%) (Auto) 1 % (0-3) 1 % (0-3) Neutrophils # (Auto) 8.7 x10^3/uL (1.8-7.7) 7.4 x10^3/uL (1.8-7.7) Lymphocytes # (Auto) 1.4 x10^3/uL (1.0-4.8) 1.9 x10^3/uL (1.0-4.8) Monocytes # (Auto) 0.6 x10^3/uL (0.0-1.1) 0.8 x10^3/uL (0.0-1.1) Eosinophils # (Auto) 0.0 x10^3/uL (0.0-0.7) 0.1 x10^3/uL (0.0-0.7) Basophils # (Auto) 0.1 x10^3/uL (0.0-0.2) 0.1 x10^3/uL (0.0-0.2) Sodium Level 135 mmol/L (136-145) Potassium Level 4.4 mmol/L (3.5-5.1) Chloride Level 98 mmol/L (98-107) Carbon Dioxide Level 26 mmol/L (21-32) Anion Gap 11 (6-14) Blood Urea Nitrogen 12 mg/dL (7-20) Creatinine 0.7 mg/dL (0.6-1.0) Estimated GFR (Cockcroft-Gault) 83.2 BUN/Creatinine Ratio 17 (6-20) Glucose Level 109 mg/dL (70-99) Calcium Level 9.0 mg/dL (8.5-10.1) Total Bilirubin 0.5 mg/dL (0.2-1.0) Aspartate Amino Transf (AST/SGOT) 66 U/L (15-37) Alanine Aminotransferase (ALT/SGPT) 86 U/L (14-59) Alkaline Phosphatase 146 U/L (46-116) Total Protein 7.1 g/dL (6.4-8.2) Albumin 3.0 g/dL (3.4-5.0) Albumin/Globulin Ratio 0.7 (1.0-1.7) SARS-CoV-2 Antigen (Rapid) Negative (NEGATIVE) VTE Prophylaxis Ordered VTE Prophylaxis Devices: Yes VTE Pharmacological Prophylaxi: No Assessment/Plan Assessment/Plan acute on prior known abdominal pain, percocet and morphine Adenocarcinoma of lung, PULM and onc consulted weakness, deblity nausea tobacco use disorder Justifications for Admission Other Justification Small bowel obstruction RUBEN BARRY MD Jan 17, 2022 08:07
[2022-01-17] MEDS ORDERED: GABAPENTIN 300 MG CAPSULE. PO PRN (08:15)
[2022-01-17] MEDS ORDERED: SUCRALFATE 1 GM TABLET. PO PRN (08:15)
[2022-01-17 08:19] LABS: ALBUMIN 2.6 g/dL (3.4-5.0); ALBUMIN/GLOBULIN RATIO 0.7 (1.0-1.7); CALCIUM 8.3 mg/dL (8.5-10.1); CREATININE 0.7 mg/dL (0.6-1.0); GFR 83.2; POTASSIUM 4.2 mmol/L (3.5-5.1); TOTAL BILIRUBIN 0.4 mg/dL (0.2-1.0); TOTAL PROTEIN 6.6 g/dL (6.4-8.2)
[2022-01-17] MEDS: FUROSEMIDE 20 MG TABLET PO SCH ×2 (09:00→09:35)
[2022-01-17] MEDS ORDERED: PANTOPRAZOLE 40 MG TABLET.DR. PO SCH (09:00)
[2022-01-17] MEDS: CARVEDILOL 6.25 MG TABLET. PO SCH ×2 (09:34→17:43)
[2022-01-17] MEDS: SPIRONOLACTONE 25 MG TABLET PO SCH (09:34)
[2022-01-17] MEDS: ASPIRIN CHEWABLE 81 MG TABLET. PO SCH (09:34)
[2022-01-17] MEDS: VENLAFAXINE 50 MG TABLET. PO SCH ×3 (09:34→21:37)
[2022-01-17] MEDS: NICOTINE 21MG PATCH. TD SCH (09:35)
[2022-01-17] MEDS: oxyCODONE/APAP 5/325 1 TAB TABLET PO PRN ×2 (09:36→17:43)
[2022-01-17] MEDS: IV DEXTROSE 5 %-0.45 % NACL 1,000 ML IV SCH ×2 (09:42→17:44)
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
[2022-01-17 11:00] VITALS: BP 146/79
--- NOTE | 2022-01-17 11:10 | CONS ---
DATE OF CONSULTATION: 01/17/2022 PULMONARY CONSULTATION ATTENDING PHYSICIAN: Nohemy Aleman DO. REASON FOR CONSULTATION: Lung cancer. HISTORY OF PRESENT ILLNESS: The patient is a 66-year-old female who has been a smoker since age 10. The patient had a CT abdomen and pelvis performed on 01/04 of this year and she was found to have a 4.3 cm mass in the left upper lobe. The patient also had evidence of mediastinal adenopathy along with metastasis to the liver and left adrenal gland. The patient also had cholelithiasis and mild gallbladder wall thickening. She was also found to have a suspected common duct stone at the ampulla. The patient states that she wanted to go to [place] for further treatment of her lung cancer, but the plan fell apart. She was admitted to [facility] with complaint of abdominal pain. She has some nausea and vomiting. She initially had diarrhea, but now constipated. The patient is here for further evaluation. She denies any shortness of breath. Denies any chest pain. Denies any cough. I have been asked to see her for further evaluation. The last imaging was from 01/04 and no recent imaging has been performed. She had an ultrasound on 01/04 as well which showed multiple liver masses and gallstones were identified. PAST MEDICAL HISTORY: Significant for suspected COPD, could be severe. History of hypertension, coronary artery disease, hyperlipidemia, and recently suspected stage 4 lung cancer. PAST SURGICAL HISTORY: Appendectomy, hysterectomy. FAMILY HISTORY: Unknown. SOCIAL HISTORY: Smoker, 1 pack per day since age 10. ALLERGIES: None. CURRENT MEDICATIONS: Reviewed as listed in the MRAD. REVIEW OF SYSTEMS: Twelve-point review of system obtained. Pertinent positives discussed in my present illness, otherwise noncontributory. In addition, she also had some weight loss. PHYSICAL EXAMINATION: VITAL SIGNS: Reviewed. Pulse ox 91% on room air, afebrile. Blood pressure 151/82. NECK: Supple. LUNGS: Clear breath sounds. CARDIOVASCULAR: With a regular rate. ABDOMEN: Significantly tender. EXTREMITIES: With no pitting edema. LABORATORY DATA: Reviewed. COVID rapid is negative. Her BUN 9, creatinine 0.7. Total bilirubin 0.4, AST, ALT elevated. Albumin 2.6. White cell count is 10.3, hemoglobin 10.6 and platelets are 303. IMPRESSION: 1. The patient with highly suspected stage 4 lung cancer. She recently presented in late December with an abnormal CT chest and abdomen. She was found to have a left upper lobe mass 4.3 cm in size along with evidence of metastasis to the mediastinal lymph nodes, diffuse liver metastasis and left adrenal gland metastasis. She has not had a workup done as she wanted to go to [place] and have all the workup done over there. 2. Abdominal pain. Recent CT abdomen and pelvis suggestive of cholelithiasis as well as common duct stone at the ampulla. There was borderline biliary dilatation. Await gastrointestinal recommendations. 3. Underlying suspected severe disease. RECOMMENDATIONS: 1. The patient would need a definite diagnosis along with biopsy. Apparently, she wanted to have it done in [place], but the plan fell apart. We will ask Interventional Radiology once her abdominal pain is resolved. 2. Consult GI. 3. Consult Medical Oncology and Radiation Oncology once diagnosis is established. 4. Smoking cessation counseling provided. 5. Bronchodilators. 6. Continue home medications. 7. Discussed with RN and we will follow along with you. ANGELICA DR: Juanito TID: [id number] MTDAntonio
[2022-01-17] MEDS: IPRATRPIUM/ALBUTEROL 0.5/2.5MG 3 ML NEBU. NEB SCH ×3 (11:32→20:00)
--- NOTE | 2022-01-17 12:40 | RAD ---
ACUTE ABDOMEN SERIES History: Nausea, vomiting, abdominal pain, constipation. Comparison: CT chest abdomen and pelvis with contrast 01/04/2022. Findings: Frontal chest and supine and upright views of the abdomen. Atherosclerotic thoracic aorta. Cardiac size upper limits of normal. Lobular left upper lobe mass is unchanged. There is fullness of the AP window compatible with adenopathy. There is no pleural effusio n or pneumothorax. No acute airspace disease is identified. No pneumoperitoneum is identified. Mild scattered air in bowel. No dilated air-filled loops of bowel are seen. Bowel gas pattern is nonobstructive. No obvious organomegaly. Left convexity lumbar scoliosis. IMPRESSION: 1. Stable left upper lobe mass and mediastinal adenopathy. 2. Nonobstructive bowel gas pattern. Electronically signed by: Partha Davila MD (01/17/2022 12:38 PM) [id number]
[2022-01-17 15:08] VITALS: BP 130/70
--- NOTE | 2022-01-17 16:29 | PDOC2 ---
CONSULT Date of Consult Date of Consult DATE: 01/17/22 TIME: 16:26 Reason for Consult Reason for Consult: Abdominal pain Referring Physician Referring Physician: Love Identification/Chief Complaint Chief Complaint Currently no complaints Source Source: Chart review, Patient History of Present Illness Reason for Visit: 66-year-old female with known lung cancer as well as metastatic disease to the liver. Return to the hospital with complaints of abdominal pain and when her plans for treatment in [place] fell through. She is currently resting comf ortably in bed denies any abdominal pain currently Past Medical History Cardiovascular: CAD, HTN, HI, Hyperlipidemia Pulmonary: COPD Renal/: No pertinent hx Past Surgical History Past Surgical History: Appendectomy, Hysterectomy Family History Family History: Family History Unknown Social History <1 pack per day ALCOHOL: none Drugs: Cocaine, Marijuana Current Problem List Problem List Problems Medical Problems: (1) Intractable abdominal pain Status: Acute Current Medications Current Medications Current Medications Ondansetron HCl (Zofran) 4 mg 1X ONCE IVP Last administered on 01/16/22at 15:01; Start 01/16/22 at 14:45; Stop 01/16/22 at 14:46; Status DC Morphine Sulfate (Morphine Sulfate) 4 mg 1X ONCE IVP Last administered on 01/16/22at 15:04; Start 01/16/22 at 14:45; Stop 01/16/22 at 14:46; Status DC Sodium Chloride 1,000 ml @ 1,000 mls/hr 1X ONCE IV Last administered on 01/16/22at 15:41; Start 01/16/22 at 15:30; Stop 01/16/22 at 16:29; Status DC Morphine Sulfate (Morphine Sulfate) 4 mg 1X ONCE IVP Last administered on 01/16at 17:48; Start 01/16/22 at 17:45; Stop 01/16/22 at 17:46; Status DC Ondansetron HCl (Zofran) 4 mg 1X ONCE IVP Last administered on 01/16/22at 17:45; Start 01/16/22 at 17:45; Stop 01/16/22 at 17:46; Status DC Ondansetron HCl (Zofran) 4 mg PRN Q8HRS PRN IVP NAUSEA/VOMITING Last administered on 01/17/22at 15:00; Start 01/16/22 at 18:00; Stop 01/17/22 at 17:59 Morphine Sulfate (Morphine Sulfate) 4 mg PRN Q2HR PRN IVP PAIN Last administered on 01/17/22at 14:30; Start 01/16/22 at 18:00; Stop 01/21/22 at 09:00 Acetaminophen (Tylenol) 650 mg PRN Q4HRS PRN PO FEVER > 100.3'F; Start 01/16/22 at 18:00; Stop 01/17/22 at 17:59 Albuterol Sulfate (Ventolin Neb Soln) 2.5 mg PRN Q4HRS PRN INH wheezing; Start 01/17/22 at 08:15 Aspirin (Aspirin Chewable) 81 mg DAILY PO Last administered on 01/17/22at 09:34; Start 01/17/22 at 09:00 Atorvastatin Calcium (Lipitor) 40 mg HS PO ; Start 01/17/22 at 21:00 Carvedilol (Coreg) 6.25 mg BIDWMEALS PO Last administered on 01/17/22at 09:34; Start 01/17/22 at 08:30 Furosemide (Lasix) 20 mg DAILY PO ; Start 01/17/22 at 09:00 Gabapentin (Neurontin) 300 mg PRN BID PRN PO HEADACHE; Start 01/17/22 at 08:15 Lisinopril (Prinivil) 10 mg QHS PO ; Start 01/17/22 at 21:00 Ondansetron HCl (Zofran Odt) 4 mg PRN Q6HRS PRN PO NAUSEA/VOMITING; Start 01/17/22 at 08:15 Oxycodone/ Acetaminophen (Percocet 5/325) 1 tab PRN Q4HRS PRN PO MODERATE TO SEVERE PAIN Last administered on 01/17/22at 09:36; Start 01/17/22 at 08:15 Quetiapine Fumarate (SEROquel) 25 mg HS PO ; Start 01/17/22 at 21:00 Spironolactone (Aldactone) 25 mg DAILY PO Last administered on 01/17/22at 09:34; Start 01/17/22 at 09:00 Sucralfate (Carafate) 1 gm PRN DAILY PRN PO NAUSEA/VOMITING; Start 01/17/22 at 08:15 Trazodone HCl (Desyrel) 50 mg HS PO ; Start 01/17/22 at 21:00 Dicyclomine HCl (Bentyl) 20 mg PRN BID PRN PO ABDOMINAL CRAMPS; Start 01/17/22 at 08:45 Pantoprazole Sodium (Protonix) 40 mg DAILYAC PO Last administered on 01/17/22at 09:35; Start 01/17/22 at 09:00; Stop 01/17/22 at 11:16; Status DC Venlafaxine HCl (Effexor) 50 mg TID PO Last administered on 01/17/22at 14:29; Start 01/17/22 at 09:00 Dextrose/Sodium Chloride 1,000 ml @ 100 mls/hr Q10H IV Last administered on 01/17/22at 09:42; Start 01/17/22 at 08:30 Nicotine (Nicoderm Cq 21mg) 1 patch DAILY TD Last administered on 01/17/22at 09:35; Start 01/17/22 at 10:00 Albuterol/ Ipratropium (Duoneb) 3 ml RTQID NEB Last administered on 01/17/22at 15:49; Start 01/17/22 at 12:00 Pantoprazole Sodium (PROTONIX VIAL for IV PUSH) 40 mg DAILYAC IVP ; Start 01/18/22 at 07:30 Active Scripts Active Cefuroxime (Cefuroxime Axetil) 250 Mg Tablet 1 Tab PO BID 3 Days Ondansetron Odt (Ondansetron) 4 Mg Tab.rapdis 4 Mg PO PRN Q6HRS PRN 10 Days Percocet 5-325 Mg Tablet (Oxycodone/Acetaminophen) 1 Each Tablet 1 Tab PO PRN Q4HRS PRN 6 Days Reported Dicyclomine Hcl 20 Mg Tablet 20 Mg PO PRN BID Gabapentin (Gabapentin) 300 Mg Capsule 300 Mg PO PRN BID PRN Lidocaine PATCH (Lidocaine) 1 Each Adh..patch 1 Each TP PRN DAILY REMOVE AFTER 12 HOURS Sucralfate 1 Gm Tablet 1 Gm PO PRN DAILY PRN Proair Hfa (Albuterol Sulfate) 8.5 Gm Hfa.aer.ad 2 Puff IH PRN Q4HRS PRN 21 Days Flovent 220MCG Hfa (Fluticasone Propionate) 12 Gm Aer.w.adap 12 Gm IH BID Carvedilol (Carvedilol) 6.25 Mg Tablet 6.25 Mg PO BIDWMEALS Furosemide 20 Mg Tablet 20 Mg PO DAILY Aspirin 81 Mg Tab.chew 81 Mg PO DAILY Nexium Capsule (Esomeprazole Magnesium) 40 Mg Capsule.dr 40 Mg PO DAILYAC Atorvastatin Calcium 40 Mg Tablet 40 Mg PO HS Lisinopril 10 Mg Tablet 10 Mg PO QHS Seroquel (Quetiapine Fumarate) 25 Mg Tablet 25 Mg PO HS Spironolactone 25 Mg Tablet 25 Mg PO DAILY Venlafaxine Hcl Er (Venlafaxine Hcl) 150 Mg Tab.er.24 150 Mg PO DAILY Trazodone Hcl 50 Mg Tablet 50 Mg PO HS Allergies Allergies: Coded Allergies: No Known Drug Allergies (Unverified , 07/20/21) ROS General: No: Chills, Night Sweats, Fatigue, Malaise, Appetite, Other PSYCHOLOGICAL ROS: No: Anxiety, Behavioral Disorder, Concentration difficultie, Decreased libido, Depression, Disorientation, Hallucinations, Hostility, Irritablity, Memory difficulties, Mood Swings, Obsessive thoughts, Physical abu se, Sexual abuse, Sleep disturbances, Suicidal ideation, Other Eyes: No Blurry vision, No Decreased vision, No Double vision, No Dry eyes, No Excessive tearing, No Eye Pain, No Itchy Eyes, No Loss of vision, No Photophobia, No Scotomata, No Uses contacts, No Uses glasses, No Other HEENT: No: Heacaches, Visual Changes, Hearing change, Nasal congestion, Nasal discharge, Oral lesions, Sinus pain, Sore Throat, Epistaxis, Sneezing, Snoring, Tinnitus, Vertigo, Vocal changes, Other ALLERGY AND IMMUNOLOGY: No: Hives, Insect Bite Sensitivity, Itchy/Watery Eyes, Nasal Congestion, Post Nasal Drip, Seasonal Allergies, Other Hematological and Lymphatic: No: Bleeding Problems, Blood Clots, Blood Transfusions, Brusing, Night Sweats, Pallor, Swollen Lymph Nodes, Other ENDOCRINE: No: Breast Changes, Galactorrhea, Hair Pattern Changes, Hot Flashes, Malaise/lethargy, Mood Swings, Palpitations, Polydipsia/polyuria, Skin Changes, Temperature Intolerance, Unexpected Weight Changes, Other Respiratory: YES: Shortness of breath Cardiovascular: No Chest Pain, No Palpitations, No Orthopnea, No Paroxysmal Noc. Dyspnea, No Edema, No Lt Headedness, No Other Gastrointestinal: Yes Abdominal Pain Genitourinary: No Dysuria, No Frequency, No Incontinence, No Hematuria, No Retention, No Discharge, No Urgency, No Pain, No Flank Pain, No Other, No , No , No , No , No , No , No Musculoskeletal: No Gait Disturbance, No Joint Pain, No Joint Stiffness, No Joint Swelling, No Muscle Pain, No Muscular Weakness, No Pain In:, No Swelling In:, No Other Neurological: No Behavorial Changes, No Bowel/Bladder ControlChng, No Confusion, No Dizziness, No Gait Disturbance, No Headaches, No Impaired Coor d/balance, No Memory Loss, No Numbness/Tingling, No Seizures, No Speech Problems, No Tremors, No Visual Changes, No Weakness, No Other Skin: No Dry Skin, No Eczema, No Hair Changes, No Lumps, No Mole Changes, No Mottling, No Nail Changes, No Pruritus, No Rash, No Skin Lesion Changes, No Other, No Acne Physical Exam General: Alert, Oriented X3, Cooperative, No acute distress HEENT: Atraumatic, EOMI Lungs: Clear to auscultation Heart: Regular rate, No murmurs Abdomen: Normal bowel sounds, Soft, No tenderness Extremities: No edema Skin: No significant lesion Neuro: Normal speech Psych/Mental Status: Mental status NL Vitals VITALS Vital Signs Date Time Temp Pulse Resp B/P (MAP) Pulse Ox O2 Delivery O2 Flow Rate FiO2 01/17/22 15:49 95 Room Air 01/17/22 15:08 97.6 71 18 130/70 (90) 97.6 Labs Labs Laboratory Tests Test 01/16/22 13:57 01/16/22 14:50 01/16/22 19:00 01/17/22 07:20 Urine Collection Type Unknown Urine Color Yellow Urine Clarity Hazy Urine pH 6.0 (<5.0-8.0) Urine Specific [place] >=1.030 (1.000-1.030) Urine Protein 30 mg/dL (NEG-TRACE) Urine Glucose (UA) Negative mg/dL (NEG) Urine Ketones (Stick) Negative mg/dL (NEG) Urine Blood Negative (NEG) Urine Nitrite Negative (NEG) Urine Bilirubin Negative (NEG) Urine Urobilinogen Dipstick 1.0 mg/dL (0.2 mg/dL) Urine Leukocyte Esterase Negative (NEG) Urine RBC 0 /HPF (0-2) Urine WBC 0 /HPF (0-4) Urine Squamous Epithelial Cells Few /LPF Urine Bacteria 0 /HPF (0-FEW) Urine Hyaline Casts Few /HPF Urine Mucus Slight /LPF White Blood Count 10.9 x10^3/uL (4.0-11.0) 10.3 x10^3/uL (4.0-11.0) Red Blood Count 4.54 x10^6/uL (3.50-5.40) 4.13 x10^6/uL (3.50-5.40) Hemoglobin 11.9 g/dL (12.0-15.5) 10.6 g/dL (12.0-15.5) Hematocrit 37.6 % (36.0-47.0) 34.6 % (36.0-47.0) Mean Corpuscular Volume 83 fL (79-100) 84 fL (79-100) Mean Corpuscular Hemoglobin 26 pg (25-35) 26 pg (25-35) Mean Corpuscular Hemoglobin Concent 32 g/dL (31-37) 31 g/dL (31-37) Red Cell Distribution Width 19.2 % (11.5-14.5) 19.4 % (11.5-14.5) Platelet Count 350 x10^3/uL (140-400) 303 x10^3/uL (140-400) Neutrophils (%) (Auto) 80 % (31-73) 72 % (31-73) Lymphocytes (%) (Auto) 13 % (24-48) 19 % (24-48) Monocytes (%) (Auto) 6 % (0-9) 8 % (0-9) Eosinophils (%) (Auto) 0 % (0-3) 1 % (0-3) Basophils (%) (Auto) 1 % (0-3) 1 % (0-3) Neutrophils # (Auto) 8.7 x10^3/uL (1.8-7.7) 7.4 x10^3/uL (1.8-7.7) Lymphocytes # (Auto) 1.4 x10^3/uL (1.0-4.8) 1.9 x10^3/uL (1.0-4.8) Monocytes # (Auto) 0.6 x10^3/uL (0.0-1.1) 0.8 x10^3/uL (0.0-1.1) Eosinophils # (Auto) 0.0 x10^3/uL (0.0-0.7) 0.1 x10^3/uL (0.0-0.7) Basophils # (Auto) 0.1 x10^3/uL (0.0-0.2) 0.1 x10^3/uL (0.0-0.2) Sodium Level 135 mmol/L (136-145) Potassium Level 4.4 mmol/L (3.5-5.1) Chloride Level 98 mmol/L (98-107) Carbon Dioxide Level 26 mmol/L (21-32) Anion Gap 11 (6-14) Blood Urea Nitrogen 12 mg/dL (7-20) Creatinine 0.7 mg/dL (0.6-1.0) Estimated GFR (Cockcroft-Gault) 83.2 BUN/Creatinine Ratio 17 (6-20) Glucose Level 109 mg/dL (70-99) Calcium Level 9.0 mg/dL (8.5-10.1) Total Bilirubin 0.5 mg/dL (0.2-1.0) Aspartate Amino Transf (AST/SGOT) 66 U/L (15-37) Alanine Aminotransferase (ALT/SGPT) 86 U/L (14-59) Alkaline Phosphatase 146 U/L (46-116) Total Protein 7.1 g/dL (6.4-8.2) Albumin 3.0 g/dL (3.4-5.0) Albumin/Globulin Ratio 0.7 (1.0-1.7) Coronavirus (COVID-19)(PCR) Not detected (NOT DETECTD) SARS-CoV-2 Antigen (Rapid) Negative (NEGATIVE) Test 01/17/22 07:28 Sodium Level 136 mmol/L (136-145) Potassium Level 4.2 mmol/L (3.5-5.1) Chloride Level 102 mmol/L (98-107) Carbon Dioxide Level 27 mmol/L (21-32) Anion Gap 7 (6-14) Blood Urea Nitrogen 9 mg/dL (7-20) Creatinine 0.7 mg/dL (0.6-1.0) Estimated GFR (Cockcroft-Gault) 83.2 BUN/Creatinine Ratio 13 (6-20) Glucose Level 94 mg/dL (70-99) Calcium Level 8.3 mg/dL (8.5-10.1) Total Bilirubin 0.4 mg/dL (0.2-1.0) Aspartate Amino Transf (AST/SGOT) 56 U/L (15-37) Alanine Aminotransferase (ALT/SGPT) 66 U/L (14-59) Alkaline Phosphatase 130 U/L (46-116) Total Protein 6.6 g/dL (6.4-8.2) Albumin 2.6 g/dL (3.4-5.0) Albumin/Globulin Ratio 0.7 (1.0-1.7) Laboratory Tests Test 01/16/22 19:00 01/17/22 07:20 01/17/22 07:28 Coronavirus (COVID-19)(PCR) Not detected (NOT DETECTD) SARS-CoV-2 Antigen (Rapid) Negative (NEGATIVE) White Blood Count 10.3 x10^3/uL (4.0-11.0) Red Blood Count 4.13 x10^6/uL (3.50-5.40) Hemoglobin 10.6 g/dL (12.0-15.5) Hematocrit 34.6 % (36.0-47.0) Mean Corpuscular Volume 84 fL (79-100) Mean Corpuscular Hemoglobin 26 pg (25-35) Mean Corpuscular Hemoglobin Concent 31 g/dL (31-37) Red Cell Distribution Width 19.4 % (11.5-14.5) Platelet Count 303 x10^3/uL (140-400) Neutrophils (%) (Auto) 72 % (31-73) Lymphocytes (%) (Auto) 19 % (24-48) Monocytes (%) (Auto) 8 % (0-9) Eosinophils (%) (Auto) 1 % (0-3) Basophils (%) (Auto) 1 % (0-3) Neutrophils # (Auto) 7.4 x10^3/uL (1.8-7.7) Lymphocytes # (Auto) 1.9 x10^3/uL (1.0-4.8) Monocytes # (Auto) 0.8 x10^3/uL (0.0-1.1) Eosinophils # (Auto) 0.1 x10^3/uL (0.0-0.7) Basophils # (Auto) 0.1 x10^3/uL (0.0-0.2) Sodium Level 136 mmol/L (136-145) Potassium Level 4.2 mmol/L (3.5-5.1) Chloride Level 102 mmol/L (98-107) Carbon Dioxide Level 27 mmol/L (21-32) Anion Gap 7 (6-14) Blood Urea Nitrogen 9 mg/dL (7-20) Creatinine 0.7 mg/dL (0.6-1.0) Estimated GFR (Cockcroft-Gault) 83.2 BUN/Creatinine Ratio 13 (6-20) Glucose Level 94 mg/dL (70-99) Calcium Level 8.3 mg/dL (8.5-10.1) Total Bilirubin 0.4 mg/dL (0.2-1.0) Aspartate Amino Transf (AST/SGOT) 56 U/L (15-37) Alanine Aminotransferase (ALT/SGPT) 66 U/L (14-59) Alkaline Phosphatase 130 U/L (46-116) Total Protein 6.6 g/dL (6.4-8.2) Albumin 2.6 g/dL (3.4-5.0) Albumin/Globulin Ratio 0.7 (1.0-1.7) Assessment/Plan Assessment/Plan Currently no abdominal pain abdominal films showed normal bowel gas pattern nonobstructive Metastatic lung cancer with mets to the liver due to the extent of disease no general surgical plans Agree with IR consult for biopsy AURELIO MEYER MD Jan 17, 2022 16:29
[2022-01-17 19:54] VITALS: BP 123/76
[2022-01-17] MEDS: traZODone 50 MG TABLET. PO SCH (21:36)
[2022-01-17] MEDS: ATORVASTATIN CALCIUM 40 MG TABLET. PO SCH (21:37)
[2022-01-17] MEDS: QUEtiapine 25 MG TABLET. PO SCH (21:37)
[2022-01-17] MEDS: ONDANSETRON ODT 4 MG TAB.RAPDIS. PO PRN (21:37)
[2022-01-17] MEDS: LISINOPRIL 10 MG TABLET PO SCH (21:48)
[2022-01-17 23:25] VITALS: BP 115/64
[2022-01-18 03:32] VITALS: BP 121/58
[2022-01-18] MEDS: IV DEXTROSE 5 %-0.45 % NACL 1,000 ML IV SCH ×2 (04:04→16:44)
[2022-01-18 07:00] VITALS: BP 139/78
[2022-01-18] MEDS: oxyCODONE/APAP 5/325 1 TAB TABLET PO PRN ×3 (07:17→18:10)
[2022-01-18] MEDS: ONDANSETRON ODT 4 MG TAB.RAPDIS. PO PRN ×3 (07:17→21:24)
--- NOTE | 2022-01-18 07:19 | NUR ---
Percocet and Zofran given po. IV cath DC'd, site infiltrated. Patient states she had an IV "in her neck the last time she was here." Refuses peripheral stick.
[2022-01-18] MEDS ORDERED: PANTOPRAZOLE IV PUSH 40 MG VIAL. IVP SCH (07:30)
[2022-01-18] MEDS: IPRATRPIUM/ALBUTEROL 0.5/2.5MG 3 ML NEBU. NEB SCH ×4 (08:00→20:23)
[2022-01-18] MEDS: FUROSEMIDE 20 MG TABLET PO SCH (08:32)
[2022-01-18] MEDS: SPIRONOLACTONE 25 MG TABLET PO SCH (08:32)
[2022-01-18] MEDS: VENLAFAXINE 50 MG TABLET. PO SCH ×3 (08:32→21:23)
[2022-01-18] MEDS: CARVEDILOL 6.25 MG TABLET. PO SCH ×2 (08:32→17:00)
[2022-01-18] MEDS: ASPIRIN CHEWABLE 81 MG TABLET. PO SCH (08:32)
[2022-01-18] MEDS: NICOTINE 21MG PATCH. TD SCH (08:34)
--- NOTE | 2022-01-18 09:47 | PDOC ---
PULMONARY PROGRESS NOTES DATE: 01/18/22 TIME: 09:45 Subjective Denies any shortness of breath. Feels weak. Still has abdominal pain. Vitals Vital Signs Date Time Temp Pulse Resp B/P (MAP) Pulse Ox O2 Delivery O2 Flow Rate FiO2 01/18/22 08:32 81 139/78 01/18/22 08:26 90 Room Air 01/18/22 07:17 20 01/18/22 07:00 97.7 97.7 General: Alert, No acute distress Lungs: Clear Cardiovascular: S1, S2 Abdomen: Soft, Other (Diffuse tenderness in the mid abdominal area.) Neuro Exam: Alert Extremities: No Edema Skin: Warm Labs Laboratory Tests Test 01/16/22 13:57 01/16/22 14:50 01/16/22 19:00 01/17/22 07:20 Urine Collection Type Unknown Urine Color Yellow Urine Clarity Hazy Urine pH 6.0 (<5.0-8.0) Urine Specific [place] >=1.030 (1.000-1.030) Urine Protein 30 mg/dL (NEG-TRACE) Urine Glucose (UA) Negative mg/dL (NEG) Urine Ketones (Stick) Negative mg/dL (NEG) Urine Blood Negative (NEG) Urine Nitrite Negative (NEG) Urine Bilirubin Negative (NEG) Urine Urobilinogen Dipstick 1.0 mg/dL (0.2 mg/dL) Urine Leukocyte Esterase Negative (NEG) Urine RBC 0 /HPF (0-2) Urine WBC 0 /HPF (0-4) Urine Squamous Epithelial Cells Few /LPF Urine Bacteria 0 /HPF (0-FEW) Urine Hyaline Casts Few /HPF Urine Mucus Slight /LPF White Blood Count 10.9 x10^3/uL (4.0-11.0) 10.3 x10^3/uL (4.0-11.0) Red Blood Count 4.54 x10^6/uL (3.50-5.40) 4.13 x10^6/uL (3.50-5.40) Hemoglobin 11.9 g/dL (12.0-15.5) 10.6 g/dL (12.0-15.5) Hematocrit 37.6 % (36.0-47.0) 34.6 % (36.0-47.0) Mean Corpuscular Volume 83 fL (79-100) 84 fL (79-100) Mean Corpuscular Hemoglobin 26 pg (25-35) 26 pg (25-35) Mean Corpuscular Hemoglobin Concent 32 g/dL (31-37) 31 g/dL (31-37) Red Cell Distribution Width 19.2 % (11.5-14.5) 19.4 % (11.5-14.5) Platelet Count 350 x10^3/uL (140-400) 303 x10^3/uL (140-400) Neutrophils (%) (Auto) 80 % (31-73) 72 % (31-73) Lymphocytes (%) (Auto) 13 % (24-48) 19 % (24-48) Monocytes (%) (Auto) 6 % (0-9) 8 % (0-9) Eosinophils (%) (Auto) 0 % (0-3) 1 % (0-3) Basophils (%) (Auto) 1 % (0-3) 1 % (0-3) Neutrophils # (Auto) 8.7 x10^3/uL (1.8-7.7) 7.4 x10^3/uL (1.8-7.7) Lymphocytes # (Auto) 1.4 x10^3/uL (1.0-4.8) 1.9 x10^3/uL (1.0-4.8) Monocytes # (Auto) 0.6 x10^3/uL (0.0-1.1) 0.8 x10^3/uL (0.0-1.1) Eosinophils # (Auto) 0.0 x10^3/uL (0.0-0.7) 0.1 x10^3/uL (0.0-0.7) Basophils # (Auto) 0.1 x10^3/uL (0.0-0.2) 0.1 x10^3/uL (0.0-0.2) Sodium Level 135 mmol/L (136-145) Potassium Level 4.4 mmol/L (3.5-5.1) Chloride Level 98 mmol/L (98-107) Carbon Dioxide Level 26 mmol/L (21-32) Anion Gap 11 (6-14) Blood Urea Nitrogen 12 mg/dL (7-20) Creatinine 0.7 mg/dL (0.6-1.0) Estimated GFR (Cockcroft-Gault) 83.2 BUN/Creatinine Ratio 17 (6-20) Glucose Level 109 mg/dL (70-99) Calcium Level 9.0 mg/dL (8.5-10.1) Total Bilirubin 0.5 mg/dL (0.2-1.0) Aspartate Amino Transf (AST/SGOT) 66 U/L (15-37) Alanine Aminotransferase (ALT/SGPT) 86 U/L (14-59) Alkaline Phosphatase 146 U/L (46-116) Total Protein 7.1 g/dL (6.4-8.2) Albumin 3.0 g/dL (3.4-5.0) Albumin/Globulin Ratio 0.7 (1.0-1.7) Coronavirus (COVID-19)(PCR) Not detected (NOT DETECTD) SARS-CoV-2 Antigen (Rapid) Negative (NEGATIVE) Test 01/17/22 07:28 Sodium Level 136 mmol/L (136-145) Potassium Level 4.2 mmol/L (3.5-5.1) Chloride Level 102 mmol/L (98-107) Carbon Dioxide Level 27 mmol/L (21-32) Anion Gap 7 (6-14) Blood Urea Nitrogen 9 mg/dL (7-20) Creatinine 0.7 mg/dL (0.6-1.0) Estimated GFR (Cockcroft-Gault) 83.2 BUN/Creatinine Ratio 13 (6-20) Glucose Level 94 mg/dL (70-99) Calcium Level 8.3 mg/dL (8.5-10.1) Total Bilirubin 0.4 mg/dL (0.2-1.0) Aspartate Amino Transf (AST/SGOT) 56 U/L (15-37) Alanine Aminotransferase (ALT/SGPT) 66 U/L (14-59) Alkaline Phosphatase 130 U/L (46-116) Total Protein 6.6 g/dL (6.4-8.2) Albumin 2.6 g/dL (3.4-5.0) Albumin/Globulin Ratio 0.7 (1.0-1.7) Medications Active Scripts Medications Dose Route/Sig Max Daily Dose Days Date Category Dose Instructions Cefuroxime (Cefuroxime Axetil) 250 Mg Tablet 1 Tab PO BID 3 01/09/22 Rx Ondansetron Odt (Ondansetron) 4 Mg Tab.rapdis 4 Mg PO PRN Q6HRS PRN 10 01/09/22 Rx Percocet 5-325 Mg Tablet (Oxycodone/Acetaminophen) 1 Each Tablet 1 Tab PO PRN Q4HRS PRN 6 01/09/22 Rx Dicyclomine Hcl 20 Mg Tablet 20 Mg PO PRN BID 07/21/21 Reported Gabapentin (Gabapentin) 300 Mg Capsule 300 Mg PO PRN BID PRN 07/21/21 Reported Lidocaine PATCH (Lidocaine) 1 Each Adh..patch 1 Each TP PRN DAILY 07/21/21 Reported REMOVE AFTER 12 HOURS Sucralfate 1 Gm Tablet 1 Gm PO PRN DAILY PRN 07/21/21 Reported Proair Hfa (Albuterol Sulfate) 8.5 Gm Hfa.aer.ad 2 Puff IH PRN Q4HRS PRN 21 07/21/21 Reported Flovent 220MCG Hfa (Fluticasone Propionate) 12 Gm Aer.w.adap 12 Gm IH BID 07/21/21 Reported Carvedilol (Carvedilol) 6.25 Mg Tablet 6.25 Mg PO BIDWMEALS 07/20/21 Reported Furosemide 20 Mg Tablet 20 Mg PO DAILY 07/20/21 Reported Aspirin 81 Mg Tab.chew 81 Mg PO DAILY 07/20/21 Reported Nexium Capsule (Esomeprazole Magnesium) 40 Mg Capsule.dr 40 Mg PO DAILYAC 07/20/21 Reported Atorvastatin Calcium 40 Mg Tablet 40 Mg PO HS 07/20/21 Reported Lisinopril 10 Mg Tablet 10 Mg PO QHS 07/20/21 Reported Seroquel (Quetiapine Fumarate) 25 Mg Tablet 25 Mg PO HS 07/20/21 Reported Spironolactone 25 Mg Tablet 25 Mg PO DAILY 07/20/21 Reported Venlafaxine Hcl Er (Venlafaxine Hcl) 150 Mg Tab.er.24 150 Mg PO DAILY 07/20/21 Reported Trazodone Hcl 50 Mg Tablet 50 Mg PO HS 07/20/21 Reported Impression . 1. The patient with highly suspected stage 4 lung cancer. She recently presented in late December with an abnormal CT chest and abdomen. She was found to have a left upper lobe mass 4.3 cm in size along with evidence of metastasis to the mediastinal lymph nodes, diffuse liver metastasis and left adrenal gland metastasis. She has not had a workup done as she wanted to go to [place] and have all the workup done over there. 2. Abdominal pain. Recent CT abdomen and pelvis suggestive of cholelithiasis as well as common duct stone at the ampulla. There was borderline biliary dilatation. Seen by GI and general surgery. No plans for cholecystectomy. 3. Underlying suspected severe disease. Plan . 1. The patient would need a definite diagnosis along with biopsy. Apparently, she wanted to have it done in [place], but the plan fell apart. We will ask Interventional Radiology to do CT-guided biopsy of liver metastasis. This will help not only diagnosis but staging as well. 2. Per GI and surgery notes, no plans for surgical intervention. 3. Consult Medical Oncology and Radiation Oncology once diagnosis is established. 4. Smoking cessation counseling provided. 5. Bronchodilators. 6. Continue home medications. 7. Discussed with RN and we will follow along with you. JAELYN GOODRICH MD Jan 18, 2022 09:47
--- NOTE | 2022-01-18 09:54 | PDOC ---
Date of Service: DATE: 01/18/22 TIME: 09:49 Subjective: Subjective: Feels better - ate all of breakfast. Denies vomiting. Hasn't stooled. Meds helping abdominal pain. Trying to rest, doesn't know details for biopsy plans. Objective: Objective: IR asked to see for biopsy. D/w Dr. Olivares. Vital Signs: Vital Signs Date Time Temp Pulse Resp B/P (MAP) Pulse Ox O2 Delivery O2 Flow Rate FiO2 01/18/22 08:32 81 139/78 01/18/22 08:26 90 Room Air 01/18/22 07:17 20 01/18/22 07:00 97.7 97.7 Imaging: KUB 01/17/22 IMPRESSION: 1. Stable left upper lobe mass and mediastinal adenopathy. 2. Nonobstructive bowel gas pattern. PE: GEN: NAD - resting - breakfast tray 100% consumed LUNGS: CTAB HEART: RRR ABD: soft, nonspecifically tender NEURO/PSYCH: A & O 3 A/P: Suspected metastatic lung cancer w/ lymphadenopathy, liver and left adrenal masses, and possible carcinomatosis per recent CT report Chronic n/v, abd pain, weight loss Chronic anemia (stable), elevated LFTs (normal bili, Alk Phos 130) Cholelithiasis - normal CBD on recent US H/o SBR Substance abuse COVID negative -- Able to eat today, pain managed. Await biopsy plans. Check INR if not already ordered, follow LFTs. PO PPI. Justicifation of Admission Dx: Justifications for Admission: Justification of Admission Dx: N/A DAISY CLANCY Jan 18, 2022 09:54
[2022-01-18] MEDS ORDERED: POLYETHYLENE GLYCOL 3350 17 GM PACKET. PO PRN (10:00)
[2022-01-18] MEDS ORDERED: BISACODYL 5 MG TABLET.DR. PO PRN (10:00)
[2022-01-18 10:04] LABS: BARBITURATES NEG (NEG); BENZODIAZEPINES NEG (NEG); CANNABINOIDS POS (NEG); COCAINE POS (NEG); METHADONE NEG (NEG); OPIATES POS (NEG); PHENCYCLIDINE NEG (NEG)
[2022-01-18 10:09] LABS: AMPHETAMINE/METHAMPHETAMINE NEG (NEG)
[2022-01-18 10:58] LABS: ALBUMIN 2.3 g/dL (3.4-5.0); DIRECT BILIRUBIN 0.3 mg/dL (0.0-0.2); TOTAL BILIRUBIN 0.5 mg/dL (0.2-1.0)
[2022-01-18 11:00] VITALS: BP 91/46
[2022-01-18 11:22] LABS: PROTHROMBIN TIME PATIENT 15.2 SEC (11.7-14.0)
--- NOTE | 2022-01-18 12:03 | PDOC ---
[employer] PROGRESS NOTE Date of Service DOS: DATE: 01/18/22 TIME: 12:01 Chief Complaint Chief Complaint acute on prior known abdominal pain, percocet and morphine lung mass, likley Adenocarcinoma of lung, weakness, deblity nausea tobacco use disorder polysubstance abuse, recent cocaine and THC History of Present Illness History of Present Illness IR to biopsy in AM she had difficulty with getting IV< anethesia got EJ, patient was reticent to have people try IV, and asked for a central line, she may need a PORT, but would be beneficial to have biopsy results for that plan. plan has been delayed due to her prior thoughts that she would go to [place]. Her is here and she did not mention him until today, was animated about her brother coming yesterday and today she says that was all a dream Vitals/I&O Vitals/I&O: Vital Signs Date Time Temp Pulse Resp B/P (MAP) Pulse Ox O2 Delivery O2 Flow Rate FiO2 01/18/22 11:53 Room Air 01/18/22 11:00 97.8 70 16 91/46 (61) 93 97.8 I & O 01/17/22 01/17/22 01/18/22 15:00 23:00 07:00 Intake Total 220 ml 1440 ml Balance 220 ml 1440 ml Physical Exam General: Alert, Oriented X3, Cooperative, No acute distress Heart: Regular rate, No murmurs Lungs: Clear Abdomen: Normal bowel sounds, Soft, No tenderness Extremities: No edema Skin: No significant lesion Labs Labs: Laboratory Tests Test 01/18/22 10:15 Prothrombin Time 15.2 SEC (11.7-14.0) Prothromb Time International Ratio 1.2 (0.8-1.1) Activated Partial Thromboplast Time 33 SEC (24-38) Total Bilirubin 0.5 mg/dL (0.2-1.0) Direct Bilirubin 0.3 mg/dL (0.0-0.2) Aspartate Amino Transf (AST/SGOT) 39 U/L (15-37) Alanine Aminotransferase (ALT/SGPT) 56 U/L (14-59) Alkaline Phosphatase 106 U/L (46-116) Total Protein 6.0 g/dL (6.4-8.2) Albumin 2.3 g/dL (3.4-5.0) Assessment and Plan Assessmemt and Plan Problems Medical Problems: (1) Intractable abdominal pain Status: Acute Comment Review of Relevant I have reviewed the following items rema (where applicable) has been applied. Medications: Current Medications Medications (Trade) Dose Ordered Sig/Shanti Route PRN Reason Start Time Stop Time Status Last Admin Dose Admin Atorvastatin Calcium (Lipitor) 40 mg HS PO 01/17/22 21:00 01/17/22 21:37 Lisinopril (Prinivil) 10 mg QHS PO 01/17/22 21:00 01/17/22 21:48 Quetiapine Fumarate (SEROquel) 25 mg HS PO 01/17/22 21:00 01/17/22 21:37 Trazodone HCl (Desyrel) 50 mg HS PO 01/17/22 21:00 01/17/22 21:36 Justifications for Admission Other Justification Small bowel obstruction RUBEN BARRY MD Jan 18, 2022 12:03
[2022-01-18 15:00] VITALS: BP 97/53
[2022-01-18 19:00] VITALS: BP 144/81
[2022-01-18] MEDS: traZODone 50 MG TABLET. PO SCH (21:23)
[2022-01-18] MEDS: QUEtiapine 25 MG TABLET. PO SCH (21:23)
[2022-01-18] MEDS: ATORVASTATIN CALCIUM 40 MG TABLET. PO SCH (21:23)
[2022-01-18] MEDS: LISINOPRIL 10 MG TABLET PO SCH (21:24)
[2022-01-18 23:06] VITALS: BP 111/63
[2022-01-19] VITALS (18 sets, daily range): BP systolic 120–171; BP diastolic 69–95
[2022-01-19] MEDS: ALBUTEROL SULFATE 2.5 MG/3 ML NEBU. INH PRN (00:05)
[2022-01-19] MEDS: IV DEXTROSE 5 %-0.45 % NACL 1,000 ML IV SCH ×3 (02:33→21:49)
[2022-01-19] MEDS: oxyCODONE/APAP 5/325 1 TAB TABLET PO PRN ×3 (04:29→20:22)
[2022-01-19] MEDS: IPRATRPIUM/ALBUTEROL 0.5/2.5MG 3 ML NEBU. NEB SCH ×4 (07:00→20:01)
[2022-01-19] MEDS: PANTOPRAZOLE 40 MG TABLET.DR. PO SCH (07:30)
[2022-01-19] MEDS: ONDANSETRON PF 4 MG/2 ML VIAL. IVP PRN ×2 (07:33→13:03)
[2022-01-19] MEDS: CARVEDILOL 6.25 MG TABLET. PO SCH ×2 (08:00→16:22)
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
[2022-01-19] MEDS: VENLAFAXINE 50 MG TABLET. PO SCH ×3 (09:00→20:16)
[2022-01-19] MEDS: SPIRONOLACTONE 25 MG TABLET PO SCH (09:00)
[2022-01-19] MEDS: ASPIRIN CHEWABLE 81 MG TABLET. PO SCH (09:00)
[2022-01-19] MEDS: NICOTINE 21MG PATCH. TD SCH (09:00)
[2022-01-19] MEDS: FUROSEMIDE 20 MG TABLET PO SCH (09:00)
[2022-01-19] MEDS: MORPHINE SULFATE 2 MG/ML INJ. IVP PRN ×3 (09:02→21:45)
--- NOTE | 2022-01-19 09:11 | PDOC2 ---
CONSULT Date of Consult Date of Consult DATE: 01/19/22 TIME: 09:04 Reason for Consult Reason for Consult: Lung cancer Referring Physician Referring Physician: Dr. Hsu Identification/Chief Complaint Chief Complaint Shortness of breath Source Source: Chart review, Patient History of Present Illness Reason for Visit: Hansa is a 66-year-old female who is known to me from a recent hospital stay. She was recently admitted to [facility] after presenting with abdominal pain. She received a chest x-ray which showed a left hilar mass. CT of the chest, abdomen and pelvis was obtained for further evaluation and showed a 4.3 x 3.7 cm left upper lobe mass concerning for primary bronchogenic carcinoma. In addition, mediastinal lymphadenopathy, liver masses and left adrenal gland mass was noted. CT also showed cholelithiasis with gallbladder thickening as well as choledocholithiasis with a stone at the ampulla. Addition al evaluation was recommended. Stranding in the omental fat in the right lower quadrant was noted. Ultrasound abdomen was obtained for further evaluation and showed pericholecystic fluid and tenderness to palpation indicative of sonographic Dolan sign. Biopsy was recommended but the patient informed us that she wanted to move to [place] to be with her brother and receive her testing and management there. She states this plan fell through when she now plans to stay in the [facility]. She is admitted to the hospital after presenting with worsening fatigue and abdominal discomfort. She received acute abdomen series which showed nonobstructive bowel gas pattern. Lab tests were obtained and showed no interval change from recent hospitalization. Medical oncology consultation has been requested given the patient's presentation with suspected metastatic cancer. Past Medical History Cardiovascular: CAD, HTN, [place], Hyperlipidemia Pulmonary: COPD Renal/: No pertinent hx Past Surgical History Past Surgical History: Appendectomy, Hysterectomy Family History Family History: Family History Unknown Social History <1 pack per day ALCOHOL: none Drugs: Cocaine, Marijuana Current Problem List Problem List Problems Medical Problems: (1) Intractable abdominal pain Status: Acute Current Medications Current Medications Current Medications Ondansetron HCl (Zofran) 4 mg 1X ONCE IVP Last administered on 01/16/22at 15:01; Start 01/16/22 at 14:45; Stop 01/16/22 at 14:46; Status DC Morphine Sulfate (Morphine Sulfate) 4 mg 1X ONCE IVP Last administered on 01/16/22at 15:04; Start 01/16/22 at 14:45; Stop 01/16/22 at 14:46; Status DC Sodium Chloride 1,000 ml @ 1,000 mls/hr 1X ONCE IV Last administered on 01/16/22at 15:41; Start 01/16/22 at 15:30; Stop 01/16/22 at 16:29; Status DC Morphine Sulfate (Morphine Sulfate) 4 mg 1X ONCE IVP Last administered on 01/16/22at 17:48; Start 01/16/22 at 17:45; Stop 01/16/22 at 17:46; Status DC Ondansetron HCl (Zofran) 4 mg 1X ONCE IVP Last administered on 01/16/22at 17:45; Start 01/16/22 at 17:45; Stop 01/16/22 at 17:46; Status DC Ondansetron HCl (Zofran) 4 mg PRN Q8HRS PRN IVP NAUSEA/VOMITING Last administered on 01/17/22at 15:00; Start 01/16/22 at 18:00; Stop 01/17/22 at 17:59; Status DC Morphine Sulfate (Morphine Sulfate) 4 mg PRN Q2HR PRN IVP PAIN Last adminis tered on 01/17/22at 21:35; Start 01/16/22 at 18:00; Stop 01/21/22 at 09:00 Acetaminophen (Tylenol) 650 mg PRN Q4HRS PRN PO FEVER > 100.3'F; Start 01/16/22 at 18:00; Stop 01/17/22 at 17:59; Status DC Albuterol Sulfate (Ventolin Neb Soln) 2.5 mg PRN Q4HRS PRN INH wheezing Last administered on 01/19/22at 00:05; Start 01/17/22 at 08:15 Aspirin (Aspirin Chewable) 81 mg DAILY PO Last administered on 01/18/22 08:32; Start 01/17/22 at 09:00 Atorvastatin Calcium (Lipitor) 40 mg HS PO Last administered on 01/18/22 21: 23; Start 01/17/22 at 21:00 Carvedilol (Coreg) 6.25 mg BIDWMEALS PO Last administered on 01/18/22at 08:32; Start 01/17/22 at 08:30 Furosemide (Lasix) 20 mg DAILY PO Last administered on 01/18/22 08:32; Start 01/17/22 at 09:00 Gabapentin (Neurontin) 300 mg PRN BID PRN PO HEADACHE; Start 01/17/22 at 08:15 Lisinopril (Prinivil) 10 mg QHS PO Last administered on 01/18/22 21:24; Start 01/17/22 at 21:00 Ondansetron HCl (Zofran Odt) 4 mg PRN Q6HRS PRN PO NAUSEA/VOMITING Last administered on 01/18/22 21:24; Start 01/17/22 at 08:15 Oxycodone/ Acetaminophen (Percocet 5/325) 1 tab PRN Q4HRS PRN PO MODERATE TO SEVERE PAIN Last administered on 01/19/22 04:29; Start 01/17/22 at 08:15 Quetiapine Fumarate (SEROquel) 25 mg HS PO Last administered on 01/18/22 21:23; Start 01/17/22 at 21:00 Spironolactone (Aldactone) 25 mg DAILY PO Last administered on 01/18/22 08:32; Start 01/17/22 at 09:00 Sucralfate (Carafate) 1 gm PRN DAILY PRN PO UPSET STOMACH; Start 01/17/22 at 08:15 Trazodone HCl (Desyrel) 50 mg HS PO Last administered on 01/18/22 21:23; Start 01/17/22 at 21:00 Dicyclomine HCl (Bentyl) 20 mg PRN BID PRN PO ABDOMINAL CRAMPS; Start 01/17/22 at 08:45 Pantoprazole Sodium (Protonix) 40 mg DAILYAC PO Last administered on 01/17/22at 09:35; Start 01/17/22 at 09:00; Stop 01/17/22 at 11:16; Status DC Venlafaxine HCl (Effexor) 50 mg TID PO Last administered on 01/18/22 21:23; Start 01/17/22 at 09:00 Dextrose/Sodium Chloride 1,000 ml @ 100 mls/hr Q10H IV Last administered on 01/19/22at 02:33; Start 01/17/22 at 08:30 Nicotine (Nicoderm Cq 21mg) 1 patch DAILY TD Last administered on 01/18/22at 08:34; Start 01/17/22 at 10:00 Albuterol/ Ipratropium (Duoneb) 3 ml RTQID NEB Last administered on 01/19/22at 07:00; Start 01/17/22 at 12:00 Pantoprazole Sodium (PROTONIX VIAL for IV PUSH) 40 mg DAILYAC IVP ; Start 01/18/22 at 07:30; Stop 01/18/22 at 09:55; Status DC Pantoprazole Sodium (Protonix) 40 mg DAILYAC PO ; Start 01/19/22 at 07:30 Polyethylene Glycol (miraLAX PACKET) 17 gm PRN DAILY PRN PO CONSTIPATION; Start 01/18/22 at 10:00 Bisacodyl (Dulcolax Tab) 10 mg PRN DAILY PRN PO CONSTIPATION; Start 01/18/22 at 10:00 Ondansetron HCl (Zofran) 4 mg PRN Q6HRS PRN IVP NAUSEA/VOMITING Last administered on 01/19/22at 07:33; Start 01/19/22 at 07:15 Morphine Sulfate (Morphine Sulfate) 2 mg PRN Q2HR PRN IVP PAIN Last administered on 01/19/22at 09:02; Start 01/19/22 at 09:00 Active Scripts Active Cefuroxime (Cefuroxime Axetil) 250 Mg Tablet 1 Tab PO BID 3 Days Ondansetron Odt (Ondansetron) 4 Mg Tab.rapdis 4 Mg PO PRN Q6HRS PRN 10 Days Percocet 5-325 Mg Tablet (Oxycodone/Acetaminophen) 1 Each Tablet 1 Tab PO PRN Q4HRS PRN 6 Days Reported Dicyclomine Hcl 20 Mg Tablet 20 Mg PO PRN BID Gabapentin (Gabapentin) 300 Mg Capsule 300 Mg PO PRN BID PRN Lidocaine PATCH (Lidocaine) 1 Each Adh..patch 1 Each TP PRN DAILY REMOVE AFTER 12 HOURS Sucralfate 1 Gm Tablet 1 Gm PO PRN DAILY PRN Proair Hfa (Albuterol Sulfate) 8.5 Gm Hfa.aer.ad 2 Puff IH PRN Q4HRS PRN 21 Days Flovent 220MCG Hfa (Fluticasone Propionate) 12 Gm Aer.w.adap 12 Gm IH BID Carvedilol (Carvedilol) 6.25 Mg Tablet 6.25 Mg PO BIDWMEALS Furosemide 20 Mg Tablet 20 Mg PO DAILY Aspirin 81 Mg Tab.chew 81 Mg PO DAILY Nexium Capsule (Esomeprazole Magnesium) 40 Mg Capsule.dr 40 Mg PO DAILYAC Atorvastatin Calcium 40 Mg Tablet 40 Mg PO HS Lisinopril 10 Mg Tablet 10 Mg PO QHS Seroquel (Quetiapine Fumarate) 25 Mg Tablet 25 Mg PO HS Spironolactone 25 Mg Tablet 25 Mg PO DAILY Venlafaxine Hcl Er (Venlafaxine Hcl) 150 Mg Tab.er.24 150 Mg PO DAILY Trazodone Hcl 50 Mg Tablet 50 Mg PO HS Allergies Allergies: Coded Allergies: No Known Drug Allergies (Unverified , 07/20/21) ROS Review of System Negative Physical Exam General: Alert, Oriented X3 HEENT: PERRLA Lungs: Clear to auscultation Heart: Regular rate Abdomen: Soft Extremities: No cyanosis Skin: No breakdown MUSCULOSKELETAL: No swelling Vitals VITALS Vital Signs Date Time Temp Pulse Resp B/P (MAP) Pulse Ox O2 Delivery O2 Flow Rate FiO2 01/19/22 09:02 93 Room Air 01/19/22 07:15 97.2 86 18 142/87 (105) 97.2 Labs Labs Laboratory Tests Test 01/18/22 10:15 Prothrombin Time 15.2 SEC (11.7-14.0) Prothromb Time International Ratio 1.2 (0.8-1.1) Activated Partial Thromboplast Time 33 SEC (24-38) Total Bilirubin 0.5 mg/dL (0.2-1.0) Direct Bilirubin 0.3 mg/dL (0.0-0.2) Aspartate Amino Transf (AST/SGOT) 39 U/L (15-37) Alanine Aminotransferase (ALT/SGPT) 56 U/L (14-59) Alkaline Phosphatase 106 U/L (46-116) Total Protein 6.0 g/dL (6.4-8.2) Albumin 2.3 g/dL (3.4-5.0) Laboratory Tests Test 01/18/22 10:15 Prothrombin Time 15.2 SEC (11.7-14.0) Prothromb Time International Ratio 1.2 (0.8-1.1) Activated Partial Thromboplast Time 33 SEC (24-38) Total Bilirubin 0.5 mg/dL (0.2-1.0) Direct Bilirubin 0.3 mg/dL (0.0-0.2) Aspartate Amino Transf (AST/SGOT) 39 U/L (15-37) Alanine Aminotransferase (ALT/SGPT) 56 U/L (14-59) Alkaline Phosphatase 106 U/L (46-116) Total Protein 6.0 g/dL (6.4-8.2) Albumin 2.3 g/dL (3.4-5.0) Assessment/Plan Assessment/Plan Assessment: Lung adenocarcinoma Liver metastasis Acute cholecystitis Abdominal pain Recommendations: -Discussed CT results with patient previously and once again today -Recommended biopsy to allow for diagnosis. This is scheduled for today. We discussed that treatment would be contingent based on results of biopsy as well as additional testing for PD-L1 and bus driver supervisor mutations in the event biopsy shows non-small cell lung cancer. -Continue pain control -Plan PET/CT and brain MRI as outpatient -Would agree with DNR. Would not recommend hospice given acceptable functional status -Recommend physical therapy consult inpatient -We will arrange outpatient medical oncology follow-up. Will review pathology with patient if she is still inpatient at the time Dane Navarrete MD Medical Oncology/Hematology Ph: [phone] TULIO NAVARRETE MD Jan 19, 2022 09:11
--- NOTE | 2022-01-19 10:22 | PDOC ---
[employer] PROGRESS NOTE Date of Service DOS: DATE: 01/19/22 TIME: 10:21 Chief Complaint Chief Complaint acute on prior known abdominal pain, percocet and morphine lung mass, likley Adenocarcinoma of lung, weakness, deblity nausea tobacco use disorder polysubstance abuse, recent cocaine and THC History of Present Illness History of Present Illness 01/19, biopsy later today, IV pain meds needed this AM, IV ms04 ordered start PT and OT after lack of support at home, her "works all the time" Advacned care planning stated, is still full code, will needs review, lack of assistance is noteworthy, 20 minutes, planning IR to biopsy in AM she had difficulty with getting IV< anethesia got EJ, patient was reticent to have people try IV, and asked for a central line, she may need a PORT, but would be beneficial to have biopsy results for that plan. plan has been delayed due to her prior thoughts that she would go to [place]. Her is here and she did not mention him until today, was animated about her brother coming yesterday and today she says that was all a dream Vitals/I&O Vitals/I&O: Vital Signs Date Time Temp Pulse Resp B/P (MAP) Pulse Ox O2 Delivery O2 Flow Rate FiO2 01/19/22 09:32 93 Room Air 01/19/22 07:15 97.2 86 18 142/87 (105) 97.2 Physical Exam General: Alert, Oriented X3 Heart: Regular rate Lungs: Clear Abdomen: Soft Extremities: No cyanosis Skin: No breakdown Assessment and Plan Assessmemt and Plan Problems Medical Problems: (1) Intractable abdominal pain Status: Acute Comment Review of Relevant I have reviewed the following items rema (where applicable) has been applied. Medications: Current Medications Medications (Trade) Dose Ordered Sig/Shanti Route PRN Reason Start Time Stop Time Status Last Admin Dose Admin Ondansetron HCl (Zofran) 4 mg PRN Q6HRS PRN IVP NAUSEA/VOMITING 01/19/22 07:15 01/19/22 07:33 Morphine Sulfate (Morphine Sulfate) 2 mg PRN Q2HR PRN IVP PAIN 01/19/22 09:00 01/19/22 09:02 Justifications for Admission Other Justification Small bowel obstruction RUBEN BARRY MD Jan 19, 2022 10:22
--- NOTE | 2022-01-19 10:42 | PDOC ---
PULMONARY PROGRESS NOTES DATE: 01/19/22 TIME: 10:37 Subjective Patient difficult to awaken this morning, lethargic, alert and oriented once awake Continues on Room Air Will have liver biopsy today Vitals Vital Signs Date Time Temp Pulse Resp B/P (MAP) Pulse Ox O2 Delivery O2 Flow Rate FiO2 01/19/22 09:32 93 Room Air 01/19/22 07:15 97.2 86 18 142/87 (105) 97.2 General: Alert, No acute distress Lungs: Clear Cardiovascular: S1, S2 Abdomen: Soft, Other (Diffuse tenderness in the mid abdominal area.) Neuro Exam: Alert Extremities: No Edema Skin: Warm Labs Laboratory Tests Test 01/18/22 10:15 Prothrombin Time 15.2 SEC (11.7-14.0) Prothromb Time International Ratio 1.2 (0.8-1.1) Activated Partial Thromboplast Time 33 SEC (24-38) Total Bilirubin 0.5 mg/dL (0.2-1.0) Direct Bilirubin 0.3 mg/dL (0.0-0.2) Aspartate Amino Transf (AST/SGOT) 39 U/L (15-37) Alanine Aminotransferase (ALT/SGPT) 56 U/L (14-59) Alkaline Phosphatase 106 U/L (46-116) Total Protein 6.0 g/dL (6.4-8.2) Albumin 2.3 g/dL (3.4-5.0) Medications Active Scripts Medications Dose Route/Sig Max Daily Dose Days Date Category Dose Instructions Cefuroxime (Cefuroxime Axetil) 250 Mg Tablet 1 Tab PO BID 3 01/09/22 Rx Ondansetron Odt (Ondansetron) 4 Mg Tab.rapdis 4 Mg PO PRN Q6HRS PRN 10 01/09/22 Rx Percocet 5-325 Mg Tablet (Oxycodone/Acetaminophen) 1 Each Tablet 1 Tab PO PRN Q4HRS PRN 6 01/09/22 Rx Dicyclomine Hcl 20 Mg Tablet 20 Mg PO PRN BID 07/21/21 Reported Gabapentin (Gabapentin) 300 Mg Capsule 300 Mg PO PRN BID PRN 07/21/21 Reported Lidocaine PATCH (Lidocaine) 1 Each Adh..patch 1 Each TP PRN DAILY 07/21/21 Reported REMOVE AFTER 12 HOURS Sucralfate 1 Gm Tablet 1 Gm PO PRN DAILY PRN 07/21/21 Reported Proair Hfa (Albuterol Sulfate) 8.5 Gm Hfa.aer.ad 2 Puff IH PRN Q4HRS PRN 21 07/21/21 Reported Flovent 220MCG Hfa (Fluticasone Propionate) 12 Gm Aer.w.adap 12 Gm IH BID 07/21/21 Reported Carvedilol (Carvedilol) 6.25 Mg Tablet 6.25 Mg PO BIDWMEALS 07/20/21 Reported Furosemide 20 Mg Tablet 20 Mg PO DAILY 07/20/21 Reported Aspirin 81 Mg Tab.chew 81 Mg PO DAILY 07/20/21 Reported Nexium Capsule (Esomeprazole Magnesium) 40 Mg Capsule.dr 40 Mg PO DAILYAC 07/20/21 Reported Atorvastatin Calcium 40 Mg Tablet 40 Mg PO HS 07/20/21 Reported Lisinopril 10 Mg Tablet 10 Mg PO QHS 07/20/21 Reported Seroquel (Quetiapine Fumarate) 25 Mg Tablet 25 Mg PO HS 07/20/21 Reported Spironolactone 25 Mg Tablet 25 Mg PO DAILY 07/20/21 Reported Venlafaxine Hcl Er (Venlafaxine Hcl) 150 Mg Tab.er.24 150 Mg PO DAILY 07/20/21 Reported Trazodone Hcl 50 Mg Tablet 50 Mg PO HS 07/20/21 Reported Impression . 1. The patient with highly suspected stage 4 lung cancer. She recently presented in late December with an abnormal CT chest and abdomen. She was found to have a left upper lobe mass 4.3 cm in size along with evidence of metastasis to the mediastinal lymph nodes, diffuse liver metastasis and left adrenal gland metastasis. She has not had a workup done as she wanted to go to [place] and have all the workup done over there. 2. Abdominal pain. Recent CT abdomen and pelvis suggestive of cholelithiasis as well as common duct stone at the ampulla. There was borderline biliary dilatation. Seen by GI and general surgery. No plans for cholecystectomy. 3. Underlying suspected severe disease. Plan . Updated 01/19/2022 Patient to have liver biopsy today; will follow results Consult to Medical/Radiation Oncology to be placed after biopsy resulted Continue GI prophylaxis Continue diuresis Bronchodilators Nicotine Patch for smoking cessation RECOMMENDATIONS 1. The patient would need a definite diagnosis along with biopsy. Apparently, she wanted to have it done in [place], but the plan fell apart. We will ask Interventional Radiology to do CT-guided biopsy of liver metastasis. This will help not only diagnosis but staging as well. 2. Per GI and surgery notes, no plans for surgical intervention. 3. Consult Medical Oncology and Radiation Oncology once diagnosis is established. 4. Smoking cessation counseling provided. 5. Bronchodilators. 6. Continue home medications. 7. Discussed with RN and we will follow along with you. JAELYN GOODRICH MD Jan 19, 2022 10:42
[2022-01-19] MEDS ORDERED: LIDOCAINE WITH 8.4% SOD BICARB 3 ML DISP.SYRIN. ONE (13:01)
[2022-01-19] MEDS ORDERED: MIDAZOLAM HCL/PF 2 MG/2 ML VIAL. ONE (13:07)
[2022-01-19] MEDS ORDERED: fentaNYL PF VIAL 100 MCG/2 ML VIAL ONE (13:07)
[2022-01-19] MEDS ORDERED: GELATIN SPONGE SIZE 12-7MM SPONGE. ONE (13:21)
[2022-01-19] MEDS ORDERED: MIDAZOLAM HCL/PF 2 MG/2 ML VIAL. IV ONE (14:00)
[2022-01-19] MEDS ORDERED: fentaNYL PF VIAL 100 MCG/2 ML VIAL IV ONE (14:00)
[2022-01-19] MEDS ORDERED: LIDOCAINE WITH 8.4% SOD BICARB 3 ML DISP.SYRIN. IJ ONE (14:00)
--- NOTE | 2022-01-19 14:53 | RAD ---
Ultrasound-guided biopsy, right hepatic mass INDICATION: Multiple hepatic masses. Lung mass. Findings consistent with metastatic disease. Consent: The procedure was explained in its entirety to the patient or the patients designated repres entative by a member of the treatment team, including a discussion of the risks, benefits and commonl y accepted alternatives to the procedure, as well as the expected consequences of no therapy whatsoev er. Discussion of the risks included, but was not limited to, those that are most frequent and thos e that are rare but possibly severe or life-threatening, as well as the possibility of unforeseen com plications. The patient was prepped and draped using maximum sterile technique, including the use of: Current cyn deline approved cutaneous antisepsis, a large sterile sheet to establish a sterile field. Additionall y the process line operator wore a hat, mask, sterile gloves, a sterile gown during the procedure as well as pract iced acceptable hand hygiene prior to placing the line. Lidocaine was used for local anesthesia. Ultrasound evaluation demonstrates a relatively hypoechoic mass in the lateral right liver. Under dir ect ultrasound guidance a 17-gauge needle was advanced into this mass. Core biopsy samples were obtai mauro. Gelfoam embolization of the biopsy tract was performed as the guiding needle was removed. Manual pressure was held for several minutes. Sterile dressings were applied. No immediate complications we re identified. Sedation: The procedure was performed under conscious sedation including continuous cardiopulmonary m onitoring via a dedicated sedation nurse. [id number] sedation time: 30 minutes IMPRESSION: Ultrasound-guided biopsy, right hepatic mass Electronically signed by: Jesus Medina MD (01/19/2022 2:51 PM) [id number]
[2022-01-19] MEDS: ATORVASTATIN CALCIUM 40 MG TABLET. PO SCH (20:17)
[2022-01-19] MEDS: traZODone 50 MG TABLET. PO SCH (20:17)
[2022-01-19] MEDS: QUEtiapine 25 MG TABLET. PO SCH (20:17)
[2022-01-19] MEDS: LISINOPRIL 10 MG TABLET PO SCH (20:22)
[2022-01-20 03:27] VITALS: BP 152/74
[2022-01-20] MEDS: ONDANSETRON ODT 4 MG TAB.RAPDIS. PO PRN ×2 (03:28→16:47)
[2022-01-20] MEDS: oxyCODONE/APAP 5/325 1 TAB TABLET PO PRN ×4 (03:29→14:48)
[2022-01-20] MEDS: ONDANSETRON PF 4 MG/2 ML VIAL. IVP PRN ×2 (04:06→22:21)
[2022-01-20] MEDS: MORPHINE SULFATE 2 MG/ML INJ. IVP PRN ×2 (05:33→07:49)
--- NOTE | 2022-01-20 06:16 | PDOC ---
PULMONARY PROGRESS NOTES DATE: 01/20/22 TIME: 06:15 Subjective on 02 2 lpm has sob liver bx 01/19 Vitals Vital Signs Date Time Temp Pulse Resp B/P (MAP) Pulse Ox O2 Delivery O2 Flow Rate FiO2 01/20/22 06:03 95 Room Air 2.0 01/20/22 05:33 18 01/20/22 03:27 97.0 77 152/74 (100) 97.0 General: Alert, No acute distress Lungs: Wheezing, Crackles Cardiovascular: S1, S2 Abdomen: Soft, Other (Diffuse tenderness in the mid abdominal area.) Neuro Exam: Alert Extremities: No Edema Skin: Warm Labs Laboratory Tests Test 01/18/22 10:15 Prothrombin Time 15.2 SEC (11.7-14.0) Prothromb Time International Ratio 1.2 (0.8-1.1) Activated Partial Thromboplast Time 33 SEC (24-38) Total Bilirubin 0.5 mg/dL (0.2-1.0) Direct Bilirubin 0.3 mg/dL (0.0-0.2) Aspartate Amino Transf (AST/SGOT) 39 U/L (15-37) Alanine Aminotransferase (ALT/SGPT) 56 U/L (14-59) Alkaline Phosphatase 106 U/L (46-116) Total Protein 6.0 g/dL (6.4-8.2) Albumin 2.3 g/dL (3.4-5.0) Medications Active Scripts Medications Dose Route/Sig Max Daily Dose Days Date Category Dose Instructions Cefuroxime (Cefuroxime Axetil) 250 Mg Tablet 1 Tab PO BID 3 01/09/22 Rx Ondansetron Odt (Ondansetron) 4 Mg Tab.rapdis 4 Mg PO PRN Q6HRS PRN 10 01/09/22 Rx Percocet 5-325 Mg Tablet (Oxycodone/Acetaminophen) 1 Each Tablet 1 Tab PO PRN Q4HRS PRN 6 01/09/22 Rx Dicyclomine Hcl 20 Mg Tablet 20 Mg PO PRN BID 07/21/21 Reported Gabapentin (Gabapentin) 300 Mg Capsule 300 Mg PO PRN BID PRN 07/21/21 Reported Lidocaine PATCH (Lidocaine) 1 Each Adh..patch 1 Each TP PRN DAILY 07/21/21 Reported REMOVE AFTER 12 HOURS Sucralfate 1 Gm Tablet 1 Gm PO PRN DAILY PRN 07/21/21 Reported Proair Hfa (Albuterol Sulfate) 8.5 Gm Hfa.aer.ad 2 Puff IH PRN Q4HRS PRN 21 07/21/21 Reported Flovent 220MCG Hfa (Fluticasone Propionate) 12 Gm Aer.w.adap 12 Gm IH BID 07/21/21 Reported Carvedilol (Carvedilol) 6.25 Mg Tablet 6.25 Mg PO BIDWMEALS 07/20/21 Reported Furosemide 20 Mg Tablet 20 Mg PO DAILY 07/20/21 Reported Aspirin 81 Mg Tab.chew 81 Mg PO DAILY 07/20/21 Reported Nexium Capsule (Esomeprazole Magnesium) 40 Mg Capsule.dr 40 Mg PO DAILYAC 07/20/21 Reported Atorvastatin Calcium 40 Mg Tablet 40 Mg PO HS 07/20/21 Reported Lisinopril 10 Mg Tablet 10 Mg PO QHS 07/20/21 Reported Seroquel (Quetiapine Fumarate) 25 Mg Tablet 25 Mg PO HS 07/20/21 Reported Spironolactone 25 Mg Tablet 25 Mg PO DAILY 07/20/21 Reported Venlafaxine Hcl Er (Venlafaxine Hcl) 150 Mg Tab.er.24 150 Mg PO DAILY 07/20/21 Reported Trazodone Hcl 50 Mg Tablet 50 Mg PO HS 07/20/21 Reported Impression . 1. The patient with highly suspected stage 4 lung cancer. She recently presented in late December with an abnormal CT chest and abdomen. She was found to have a left upper lobe mass 4.3 cm in size along with evidence of metastasis to the mediastinal lymph nodes, diffuse liver metastasis and left adrenal gland metastasis. She has not had a workup done as she wanted to go to [place] and have all the workup done over there. 2. Abdominal pain. Recent CT abdomen and pelvis suggestive of cholelithiasis as well as common duct stone at the ampulla. There was borderline biliary dilatation. Seen by GI and general surgery. No plans for cholecystectomy. 3. Underlying suspected severe disease. Plan . Updated 01/20/2022 has wheezing crackles dc iv fluid solumedrol 125 mg now start solumedrol 40 mg q 8hrs liver bx 01/19 fu path Consult to Medical/Radiation Oncology to be placed after biopsy resulted Continue GI prophylaxis lasix monitor k, cr Bronchodilators, duo neb Nicotine Patch for smoking cessation advised to quit smoking for ever overall prognosis poor discussed w rn Updated 01/19/2022 Patient to have liver biopsy today; will follow results Consult to Medical/Radiation Oncology to be placed after biopsy resulted Continue GI prophylaxis Continue diuresis Bronchodilators Nicotine Patch for smoking cessation RECOMMENDATIONS 1. The patient would need a definite diagnosis along with biopsy. Apparently, she wanted to have it done in [place], but the plan fell apart. We will ask Interventional Radiology to do CT-guided biopsy of liver metastasis. This will help not only diagnosis but staging as well. 2. Per GI and surgery notes, no plans for surgical intervention. 3. Consult Medical Oncology and Radiation Oncology once diagnosis is established. 4. Smoking cessation counseling provided. 5. Bronchodilators. 6. Continue home medications. 7. Discussed with RN and we will follow along with you. JESSICA CHAMPAGNE MD Jan 20, 2022 06:16
[2022-01-20 07:00] VITALS: BP 159/90
[2022-01-20] MEDS ORDERED: methylPREDNISolone SOD SUCC PF 125 MG/2 ML VIAL. IV ONE (07:15)
[2022-01-20] MEDS: PANTOPRAZOLE 40 MG TABLET.DR. PO SCH (07:30)
[2022-01-20] MEDS: CARVEDILOL 6.25 MG TABLET. PO SCH ×2 (08:00→16:49)
[2022-01-20] MEDS: IPRATRPIUM/ALBUTEROL 0.5/2.5MG 3 ML NEBU. NEB SCH ×4 (08:04→21:00)
[2022-01-20 08:51] LABS: BASO % 1 % (0-3); EOS # 0.1 x10^3/uL (0.0-0.7); EOS % 2 % (0-3); HEMATOCRIT 36.6 % (36.0-47.0); HEMOGLOBIN 11.2 g/dL (12.0-15.5); LYMPH # 1.1 x10^3/uL (1.0-4.8); LYMPH % 15 % (24-48); MEAN CORPUSCULAR HEMOGLOBIN 26 pg (25-35); MEAN CORPUSCULAR HGB CONC 31 g/dL (31-37); MEAN CORPUSCULAR VOLUME 84 fL (79-100); MONO # 0.7 x10^3/uL (0.0-1.1); MONO % 9 % (0-9); NEUT # 5.4 x10^3/uL (1.8-7.7); NEUT % 74 % (31-73); PLATELET COUNT 261 x10^3/uL (140-400); RED BLOOD COUNT 4.34 x10^6/uL (3.50-5.40); RED CELL DISTRIBUTION WIDTH 19.1 % (11.5-14.5); WHITE BLOOD COUNT 7.3 x10^3/uL (4.0-11.0)
[2022-01-20] MEDS: NICOTINE 21MG PATCH. TD SCH (09:00)
[2022-01-20] MEDS: ASPIRIN CHEWABLE 81 MG TABLET. PO SCH (09:00)
[2022-01-20] MEDS: SPIRONOLACTONE 25 MG TABLET PO SCH (09:00)
[2022-01-20] MEDS: FUROSEMIDE 20 MG TABLET PO SCH (09:00)
[2022-01-20] MEDS: VENLAFAXINE 50 MG TABLET. PO SCH ×3 (09:00→20:36)
[2022-01-20 09:09] LABS: ALBUMIN 2.7 g/dL (3.4-5.0); ALBUMIN/GLOBULIN RATIO 0.6 (1.0-1.7); CALCIUM 8.1 mg/dL (8.5-10.1); CREATININE 0.6 mg/dL (0.6-1.0); GFR 99.4; POTASSIUM 3.9 mmol/L (3.5-5.1); TOTAL BILIRUBIN 0.6 mg/dL (0.2-1.0)
[2022-01-20] MEDS: MORPHINE SULFATE 4 MG/ML INJ. IVP PRN ×2 (09:16→13:15)
[2022-01-20] MEDS: ALBUTEROL SULFATE 2.5 MG/3 ML NEBU. INH PRN (09:38)
[2022-01-20 10:56] VITALS: BP 139/86
[2022-01-20] MEDS: methylPREDNISolone SOD SUCC PF 40 MG/ML VIAL. IV SCH ×2 (14:01→22:22)
[2022-01-20 15:00] VITALS: BP 121/71
[2022-01-20 19:00] VITALS: BP 142/84
[2022-01-20] MEDS: ATORVASTATIN CALCIUM 40 MG TABLET. PO SCH (20:36)
[2022-01-20] MEDS: LISINOPRIL 10 MG TABLET PO SCH (20:36)
[2022-01-20] MEDS: QUEtiapine 25 MG TABLET. PO SCH (20:36)
[2022-01-20] MEDS: traZODone 50 MG TABLET. PO SCH (20:36)
[2022-01-20] MEDS: DICYCLOMINE HCL 10 MG CAPSULE PO PRN (20:36)
[2022-01-20 23:00] VITALS: BP 140/69
[2022-01-21] MEDS: ALBUTEROL SULFATE 2.5 MG/3 ML NEBU. INH PRN ×2 (00:30→04:50)
[2022-01-21 03:00] VITALS: BP 133/86
[2022-01-21] MEDS: MORPHINE SULFATE 2 MG/ML INJ. IVP PRN ×2 (03:50→09:43)
--- NOTE | 2022-01-21 05:51 | RAD ---
AP chest x-ray HISTORY: Shortness of breath. COMPARISON: Chest x-rays January 18, 2020 FINDINGS: Heart size stable. Left perihilar upper lobe mass lesion again demonstrated. Development of a dense opacity at the left lower lobe. There is a mild opacity right lower lobe adjacent to the elisa phragm. Pulmonary interstitial infiltrates have developed. Small left pleural effusion has developed. IMPRESSION: Left perihilar upper lobe mass concerning for malignancy again demonstrated. Development of new diffuse bilateral pulmonary infiltrates and opacities of the bilateral lower lobes and of the lingula, which likely represents pulmonary edema. There is a mild left pleural effusion which has als o developed. Electronically signed by: Antonio Varela MD (01/21/2022 5:49 AM) [facility]
[2022-01-21] MEDS: PANTOPRAZOLE 40 MG TABLET.DR. PO SCH (06:12)
[2022-01-21] MEDS: methylPREDNISolone SOD SUCC PF 40 MG/ML VIAL. IV SCH ×3 (06:14→22:19)
--- NOTE | 2022-01-21 06:25 | PDOC ---
PULMONARY PROGRESS NOTES DATE: 01/21/22 TIME: 06:21 Subjective on 02 4 lpm has sob has n/v liver bx 01/19 Vitals Vital Signs Date Time Temp Pulse Resp B/P (MAP) Pulse Ox O2 Delivery O2 Flow Rate FiO2 01/21/22 04:50 98 Nasal Cannula 4.0 01/21/22 04:20 20 01/21/22 03:00 97.8 100 133/86 (102) 97.8 General: Alert, No acute distress Lungs: Wheezing, Crackles Cardiovascular: S1, S2 Abdomen: Soft, Other (Diffuse tenderness in the mid abdominal area.) Neuro Exam: Alert Extremities: No Edema Skin: Warm Labs Laboratory Tests Test 01/20/22 08:30 White Blood Count 7.3 x10^3/uL (4.0-11.0) Red Blood Count 4.34 x10^6/uL (3.50-5.40) Hemoglobin 11.2 g/dL (12.0-15.5) Hematocrit 36.6 % (36.0-47.0) Mean Corpuscular Volume 84 fL (79-100) Mean Corpuscular Hemoglobin 26 pg (25-35) Mean Corpuscular Hemoglobin Concent 31 g/dL (31-37) Red Cell Distribution Width 19.1 % (11.5-14.5) Platelet Count 261 x10^3/uL (140-400) Neutrophils (%) (Auto) 74 % (31-73) Lymphocytes (%) (Auto) 15 % (24-48) Monocytes (%) (Auto) 9 % (0-9) Eosinophils (%) (Auto) 2 % (0-3) Basophils (%) (Auto) 1 % (0-3) Neutrophils # (Auto) 5.4 x10^3/uL (1.8-7.7) Lymphocytes # (Auto) 1.1 x10^3/uL (1.0-4.8) Monocytes # (Auto) 0.7 x10^3/uL (0.0-1.1) Eosinophils # (Auto) 0.1 x10^3/uL (0.0-0.7) Basophils # (Auto) 0.0 x10^3/uL (0.0-0.2) Sodium Level 138 mmol/L (136-145) Potassium Level 3.9 mmol/L (3.5-5.1) Chloride Level 102 mmol/L (98-107) Carbon Dioxide Level 32 mmol/L (21-32) Anion Gap 4 (6-14) Blood Urea Nitrogen 8 mg/dL (7-20) Creatinine 0.6 mg/dL (0.6-1.0) Estimated GFR (Cockcroft-Gault) 99.4 BUN/Creatinine Ratio 13 (6-20) Glucose Level 117 mg/dL (70-99) Calcium Level 8.1 mg/dL (8.5-10.1) Total Bilirubin 0.6 mg/dL (0.2-1.0) Aspartate Amino Transf (AST/SGOT) 36 U/L (15-37) Alanine Aminotransferase (ALT/SGPT) 44 U/L (14-59) Alkaline Phosphatase 128 U/L (46-116) Total Protein 7.0 g/dL (6.4-8.2) Albumin 2.7 g/dL (3.4-5.0) Albumin/Globulin Ratio 0.6 (1.0-1.7) Laboratory Tests Test 01/20/22 08:30 White Blood Count 7.3 x10^3/uL (4.0-11.0) Red Blood Count 4.34 x10^6/uL (3.50-5.40) Hemoglobin 11.2 g/dL (12.0-15.5) Hematocrit 36.6 % (36.0-47.0) Mean Corpuscular Volume 84 fL (79-100) Mean Corpuscular Hemoglobin 26 pg (25-35) Mean Corpuscular Hemoglobin Concent 31 g/dL (31-37) Red Cell Distribution Width 19.1 % (11.5-14.5) Platelet Count 261 x10^3/uL (140-400) Neutrophils (%) (Auto) 74 % (31-73) Lymphocytes (%) (Auto) 15 % (24-48) Monocytes (%) (Auto) 9 % (0-9) Eosinophils (%) (Auto) 2 % (0-3) Basophils (%) (Auto) 1 % (0-3) Neutrophils # (Auto) 5.4 x10^3/uL (1.8-7.7) Lymphocytes # (Auto) 1.1 x10^3/uL (1.0-4.8) Monocytes # (Auto) 0.7 x10^3/uL (0.0-1.1) Eosinophils # (Auto) 0.1 x10^3/uL (0.0-0.7) Basophils # (Auto) 0.0 x10^3/uL (0.0-0.2) Sodium Level 138 mmol/L (136-145) Potassium Level 3.9 mmol/L (3.5-5.1) Chloride Level 102 mmol/L (98-107) Carbon Dioxide Level 32 mmol/L (21-32) Anion Gap 4 (6-14) Blood Urea Nitrogen 8 mg/dL (7-20) Creatinine 0.6 mg/dL (0.6-1.0) Estimated GFR (Cockcroft-Gault) 99.4 BUN/Creatinine Ratio 13 (6-20) Glucose Level 117 mg/dL (70-99) Calcium Level 8.1 mg/dL (8.5-10.1) Total Bilirubin 0.6 mg/dL (0.2-1.0) Aspartate Amino Transf (AST/SGOT) 36 U/L (15-37) Alanine Aminotransferase (ALT/SGPT) 44 U/L (14-59) Alkaline Phosphatase 128 U/L (46-116) Total Protein 7.0 g/dL (6.4-8.2) Albumin 2.7 g/dL (3.4-5.0) Albumin/Globulin Ratio 0.6 (1.0-1.7) Medications Active Scripts Medications Dose Route/Sig Max Daily Dose Days Date Category Dose Instructions Cefuroxime (Cefuroxime Axetil) 250 Mg Tablet 1 Tab PO BID 3 01/09/22 Rx Ondansetron Odt (Ondansetron) 4 Mg Tab.rapdis 4 Mg PO PRN Q6HRS PRN 10 01/09/22 Rx Percocet 5-325 Mg Tablet (Oxycodone/Acetaminophen) 1 Each Tablet 1 Tab PO PRN Q4HRS PRN 6 01/09/22 Rx Dicyclomine Hcl 20 Mg Tablet 20 Mg PO PRN BID 07/21/21 Reported Gabapentin (Gabapentin) 300 Mg Capsule 300 Mg PO PRN BID PRN 07/21/21 Reported Lidocaine PATCH (Lidocaine) 1 Each Adh..patch 1 Each TP PRN DAILY 9/10/21 Reported REMOVE AFTER 12 HOURS Sucralfate 1 Gm Tablet 1 Gm PO PRN DAILY PRN 07/21/21 Reported Proair Hfa (Albuterol Sulfate) 8.5 Gm Hfa.aer.ad 2 Puff IH PRN Q4HRS PRN 21 07/21/21 Reported Flovent 220MCG Hfa (Fluticasone Propionate) 12 Gm Aer.w.adap 12 Gm IH BID 07/21/21 Reported Carvedilol (Carvedilol) 6.25 Mg Tablet 6.25 Mg PO BIDWMEALS 07/20/21 Reported Furosemide 20 Mg Tablet 20 Mg PO DAILY 07/20/21 Reported Aspirin 81 Mg Tab.chew 81 Mg PO DAILY 07/20/21 Reported Nexium Capsule (Esomeprazole Magnesium) 40 Mg Capsule.dr 40 Mg PO DAILYAC 07/20/21 Reported Atorvastatin Calcium 40 Mg Tablet 40 Mg PO HS 07/20/21 Reported Lisinopril 10 Mg Tablet 10 Mg PO QHS 07/20/21 Reported Seroquel (Quetiapine Fumarate) 25 Mg Tablet 25 Mg PO HS 07/20/21 Reported Spironolactone 25 Mg Tablet 25 Mg PO DAILY 07/20/21 Reported Venlafaxine Hcl Er (Venlafaxine Hcl) 150 Mg Tab.er.24 150 Mg PO DAILY 07/20/21 Reported Trazodone Hcl 50 Mg Tablet 50 Mg PO HS 07/20/21 Reported Comments cxr 01/21 reviewed Left perihilar upper lobe mass concerning for malignancy again demonstrated. Development of new diffuse bilateral pulmonary infiltrates and opacities of the bilateral lower lobes and of the lingula, which likely represents pulmonary edema. There is a mild left pleural effusion which has also developed. Impression . 1. The patient with highly suspected stage 4 lung cancer. She recently presented in late December with an abnormal CT chest and abdomen. She was found to have a left upper lobe mass 4.3 cm in size along with evidence of metastasis to the mediastinal lymph nodes, diffuse liver metastasis and left adrenal gland metastasis. She has not had a workup done as she wanted to go to [place] and have all the workup done over there. 2. Abdominal pain. Recent CT abdomen and pelvis suggestive of cholelithiasis as well as common duct stone at the ampulla. There was borderline biliary dilatation. Seen by GI and general surgery. No plans for cholecystectomy. 3. Underlying suspected severe disease. Plan . Updated 01/21/2022 has wheezing crackles cxr pulm edema lasix 20 mg iv now cont solumedrol 40 mg q 8hrs sob better after lasix liver bx 01/19 fu path Medical/Radiation Oncology on case Continue GI prophylaxis lasix monitor k, cr Bronchodilators, duo neb Nicotine Patch for smoking cessation advised to quit smoking for ever overall prognosis poor primary to re address code status discussed w logistics intern Updated 01/20/2022 has wheezing crackles dc iv fluid solumedrol 125 mg now start solumedrol 40 mg q 8hrs liver bx 01/19 fu path Consult to Medical/Radiation Oncology to be placed after biopsy resulted Continue GI prophylaxis lasix monitor k, cr Bronchodilators, duo neb Nicotine Patch for smoking cessation advised to quit smoking for ever overall prognosis poor discussed w rn Updated 01/19/2022 Patient to have liver biopsy today; will follow results Consult to Medical/Radiation Oncology to be placed after biopsy resulted Continue GI prophylaxis Continue diuresis Bronchodilators Nicotine Patch for smoking cessation RECOMMENDATIONS 1. The patient would need a definite diagnosis along with biopsy. Apparently, she wanted to have it done in [place], but the plan fell apart. We will ask Interventional Radiology to do CT-guided biopsy of liver metastasis. This will help not only diagnosis but staging as well. 2. Per GI and surgery notes, no plans for surgical intervention. 3. Consult Medical Oncology and Radiation Oncology once diagnosis is established. 4. Smoking cessation counseling provided. 5. Bronchodilators. 6. Continue home medications. 7. Discussed with RN and we will follow along with you. JESSICA CHAMPAGNE MD Jan 21, 2022 06:25
[2022-01-21] MEDS ORDERED: FUROSEMIDE 20 MG/2 ML VIAL. IVP ONE (06:30)
[2022-01-21 07:15] VITALS: BP 165/99
[2022-01-21] MEDS: IPRATRPIUM/ALBUTEROL 0.5/2.5MG 3 ML NEBU. NEB SCH ×4 (07:42→20:00)
[2022-01-21] MEDS: ONDANSETRON PF 4 MG/2 ML VIAL. IVP PRN (08:16)
[2022-01-21] MEDS: oxyCODONE/APAP 5/325 1 TAB TABLET PO PRN ×3 (08:16→17:59)
[2022-01-21] MEDS: CARVEDILOL 6.25 MG TABLET. PO SCH ×2 (08:17→16:49)
[2022-01-21] MEDS: FUROSEMIDE 20 MG TABLET PO SCH (08:17)
[2022-01-21] MEDS: SPIRONOLACTONE 25 MG TABLET PO SCH (08:17)
[2022-01-21] MEDS: ASPIRIN CHEWABLE 81 MG TABLET. PO SCH (08:18)
[2022-01-21] MEDS: VENLAFAXINE 50 MG TABLET. PO SCH ×3 (08:18→22:19)
[2022-01-21] MEDS: NICOTINE 21MG PATCH. TD SCH (09:02)
[2022-01-21 11:00] VITALS: BP 146/87
[2022-01-21 15:00] VITALS: BP 161/95
[2022-01-21] MEDS: ONDANSETRON ODT 4 MG TAB.RAPDIS. PO PRN ×2 (17:36→23:58)
--- NOTE | 2022-01-21 18:27 | PDOC ---
[employer] PROGRESS NOTE Date of Service DOS: DATE: 01/21/22 TIME: 18:27 Chief Complaint Chief Complaint acute on prior known abdominal pain, percocet and morphine lung mass, likley Adenocarcinoma of lung, weakness, deblity nausea tobacco use disorder polysubstance abuse, recent cocaine and THC History of Present Illness History of Present Illness 01/21 Patient evaluated examined at bedside. Reporting shortness of breath and anxiety this morning. Check chest x-ray. Pulmonary following. Continue current. Possible discharge this coming week 01/20 Evaluate examined at bedside. Continue current plan. Biopsy results pending. PT OT. Discussed with bedside RN. 01/19, biopsy later today, IV pain meds needed this AM, IV ms04 ordered start PT and OT after lack of support at home, her "works all the time" Advacned care planning stated, is still full code, will needs review, lack of assistance is noteworthy, 20 minutes, planning IR to biopsy in AM she had difficulty with getting IV< anethesia got EJ, patient was reticent to have people try IV, and asked for a central line, she may need a PORT, but would be beneficial to have biopsy results for that plan. plan has been delayed due to her prior thoughts that she would go to [place]. Her is here and she did not mention him until today, was animated about her brother coming yesterday and today she says that was all a dream Vitals/I&O Vitals/I&O: Vital Signs Date Time Temp Pulse Resp B/P (MAP) Pulse Ox O2 Delivery O2 Flow Rate FiO2 01/21/22 17:59 16 93 Nasal Cannula 4.0 01/21/22 16:49 85 161/95 01/21/22 15:00 98.3 98.3 I & O 01/20/22 01/20/22 01/21/22 15:00 23:00 07:00 Intake Total 120 ml 120 ml Balance 120 ml 120 ml Physical Exam General: Alert, Oriented X3, Cooperative Heart: Regular rate Lungs: Wheezing, Crackles Abdomen: Soft Extremities: No cyanosis Skin: No breakdown Assessment and Plan Assessmemt and Plan Problems Medical Problems: (1) Intractable abdominal pain Status: Acute Comment Review of Relevant I have reviewed the following items rema (where applicable) has been applied. Medications: Current Medications Medications (Trade) Dose Ordered Sig/Shanti Route PRN Reason Start Time Stop Time Status Last Admin Dose Admin Furosemide (Lasix) 20 mg 1X ONCE IVP 01/21/22 06:30 01/21/22 06:31 DC 01/21/22 06:11 Lorazepam (Ativan Inj) 2 mg PRN Q2HRS PRN IVP ANXIETY / AGITATION 01/21/22 10:00 01/21/22 18:05 Justifications for Admission Other Justification Small bowel obstruction SHANTI LOPEZ MD Jan 21, 2022 18:27
--- NOTE | 2022-01-21 18:27 | PDOC ---
[employer] PROGRESS NOTE Date of Service DOS: January 20 late entry Chief Complaint Chief Complaint acute on prior known abdominal pain, percocet and morphine lung mass, likley Adenocarcinoma of lung, weakness, deblity nausea tobacco use disorder polysubstance abuse, recent cocaine and THC History of Present Illness History of Present Illness 01/20 Evaluate examined at bedside. Continue current plan. Biopsy results pending. PT OT. Discussed with bedside RN. 01/19, biopsy later today, IV pain meds needed this AM, IV ms04 ordered start PT and OT after lack of support at home, her "works all the time" Advacned care planning stated, is still full code, will needs review, lack of assistance is noteworthy, 20 minutes, planning IR to biopsy in AM she had difficulty with getting IV< anethesia got EJ, patient was reticent to have people try IV, and asked for a central line, she may need a PORT, but would be beneficial to have biopsy results for that plan. plan has been delayed due to her prior thoughts that she would go to [place]. Her is here and she did not mention him until today, was animated about her brother coming yesterday and today she says that was all a dream Vitals/I&O Vitals/I&O: Vital Signs Date Time Temp Pulse Resp B/P (MAP) Pulse Ox O2 Delivery O2 Flow Rate FiO2 01/21/22 17:59 16 93 Nasal Cannula 4.0 01/21/22 16:49 85 161/95 01/21/22 15:00 98.3 98.3 I & O 01/20/22 01/20/22 01/21/22 15:00 23:00 07:00 Intake Total 120 ml 120 ml Balance 120 ml 120 ml Physical Exam General: Alert, Oriented X3 Heart: Regular rate Lungs: Wheezing, Crackles Abdomen: Soft Extremities: No cyanosis Skin: No breakdown Assessment and Plan Assessmemt and Plan Problems Medical Problems: (1) Intractable abdominal pain Status: Acute Comment Review of Relevant I have reviewed the following items rema (where applicable) has been applied. Medications: Current Medications Medications (Trade) Dose Ordered Sig/Shanti Route PRN Reason Start Time Stop Time Status Last Admin Dose Admin Furosemide (Lasix) 20 mg 1X ONCE IVP 01/21/22 06:30 01/21/22 06:31 DC 01/21/22 06:11 Lorazepam (Ativan Inj) 2 mg PRN Q2HRS PRN IVP ANXIETY / AGITATION 01/21/22 10:00 01/21/22 18:05 Justifications for Admission Other Justification Small bowel obstruction SHANTI LOPEZ MD Jan 21, 2022 18:27
[2022-01-21 19:00] VITALS: BP 166/93
[2022-01-21] MEDS: QUEtiapine 25 MG TABLET. PO SCH (22:18)
[2022-01-21] MEDS: traZODone 50 MG TABLET. PO SCH (22:18)
[2022-01-21] MEDS: LISINOPRIL 10 MG TABLET PO SCH (22:19)
[2022-01-21] MEDS: ATORVASTATIN CALCIUM 40 MG TABLET. PO SCH (22:19)
[2022-01-21 23:00] VITALS: BP 160/88
[2022-01-22] MEDS: MORPHINE SULFATE 2 MG/ML INJ. IVP PRN ×2 (00:31→12:52)
[2022-01-22 03:00] VITALS: BP 138/82
[2022-01-22] MEDS: methylPREDNISolone SOD SUCC PF 40 MG/ML VIAL. IV SCH ×3 (06:12→22:00)
[2022-01-22] MEDS: PANTOPRAZOLE 40 MG TABLET.DR. PO SCH (06:14)
[2022-01-22] MEDS: IPRATRPIUM/ALBUTEROL 0.5/2.5MG 3 ML NEBU. NEB SCH ×4 (06:25→20:40)
[2022-01-22 07:00] VITALS: BP 151/92
[2022-01-22] MEDS: FUROSEMIDE 20 MG TABLET PO SCH (08:58)
[2022-01-22] MEDS: SPIRONOLACTONE 25 MG TABLET PO SCH (08:58)
[2022-01-22] MEDS: VENLAFAXINE 50 MG TABLET. PO SCH ×3 (08:59→21:00)
[2022-01-22] MEDS: CARVEDILOL 6.25 MG TABLET. PO SCH ×2 (08:59→17:41)
[2022-01-22] MEDS: ASPIRIN CHEWABLE 81 MG TABLET. PO SCH (08:59)
[2022-01-22] MEDS: NICOTINE 21MG PATCH. TD SCH (09:00)
--- NOTE | 2022-01-22 10:03 | PDOC ---
PULMONARY PROGRESS NOTES DATE: 01/22/22 TIME: 10:00 Subjective on 02 4 lpm . developed congestive heart rate over the weekend. Clinically better. liver bx 01/19 Vitals Vital Signs Date Time Temp Pulse Resp B/P (MAP) Pulse Ox O2 Delivery O2 Flow Rate FiO2 01/22/22 08:59 87 151/92 01/22/22 07:00 97.6 94 Nasal Cannula 2.0 97.6 01/22/22 03:00 20 General: No acute distress, Lethargic Lungs: Wheezing, Crackles Cardiovascular: S1, S2 Abdomen: Soft, Other (Diffuse tenderness in the mid abdominal area.) Neuro Exam: Alert Extremities: No Edema Skin: Warm Medications Active Scripts Medications Dose Route/Sig Max Daily Dose Days Date Category Dose Instructions Cefuroxime (Cefuroxime Axetil) 250 Mg Tablet 1 Tab PO BID 3 01/09/22 Rx Ondansetron Odt (Ondansetron) 4 Mg Tab.rapdis 4 Mg PO PRN Q6HRS PRN 10 01/09/22 Rx Percocet 5-325 Mg Tablet (Oxycodone/Acetaminophen) 1 Each Tablet 1 Tab PO PRN Q4HRS PRN 6 01/09/22 Rx Dicyclomine Hcl 20 Mg Tablet 20 Mg PO PRN BID 07/21/21 Reported Gabapentin (Gabapentin) 300 Mg Capsule 300 Mg PO PRN BID PRN 07/21/21 Reported Lidocaine PATCH (Lidocaine) 1 Each Adh..patch 1 Each TP PRN DAILY 07/21/21 Reported REMOVE AFTER 12 HOURS Sucralfate 1 Gm Tablet 1 Gm PO PRN DAILY PRN 07/21/21 Reported Proair Hfa (Albuterol Sulfate) 8.5 Gm Hfa.aer.ad 2 Puff IH PRN Q4HRS PRN 21 07/21/21 Reported Flovent 220MCG Hfa (Fluticasone Propionate) 12 Gm Aer.w.adap 12 Gm IH BID 07/21/21 Reported Carvedilol (Carvedilol) 6.25 Mg Tablet 6.25 Mg PO BIDWMEALS 07/20/21 Reported Furosemide 20 Mg Tablet 20 Mg PO DAILY 07/20/21 Reported Aspirin 81 Mg Tab.chew 81 Mg PO DAILY 07/20/21 Reported Nexium Capsule (Esomeprazole Magnesium) 40 Mg Capsule.dr 40 Mg PO DAILYAC 07/20/21 Reported Atorvastatin Calcium 40 Mg Tablet 40 Mg PO HS 07/20/21 Reported Lisinopril 10 Mg Tablet 10 Mg PO QHS 07/20/21 Reported Seroquel (Quetiapine Fumarate) 25 Mg Tablet 25 Mg PO HS 07/20/21 Reported Spironolactone 25 Mg Tablet 25 Mg PO DAILY 07/20/21 Reported Venlafaxine Hcl Er (Venlafaxine Hcl) 150 Mg Tab.er.24 150 Mg PO DAILY 07/20/21 Reported Trazodone Hcl 50 Mg Tablet 50 Mg PO HS 07/20/21 Reported Comments cxr 01/21 reviewed Left perihilar upper lobe mass concerning for malignancy again demonstrated. Development of new diffuse bilateral pulmonary infiltrates and opacities of the bilateral lower lobes and of the lingula, which likely represents pulmonary edema. There is a mild left pleural effusion which has also developed. Impression . 1. The patient with highly suspected stage 4 lung cancer. She recently presented in late December with an abnormal CT chest and abdomen. She was found to have a left upper lobe mass 4.3 cm in size along with evidence of metastasis to the mediastinal lymph nodes, diffuse liver metastasis and left adrenal gland metastasis. She has not had a workup done as she wanted to go to [place] and have all the workup done over there. Status post liver biopsy 01/19/2022 2. Abdominal pain. Recent CT abdomen and pelvis suggestive of cholelithiasis as well as common duct stone at the ampulla. There was borderline biliary dilatation. Seen by GI and general surgery. No plans for cholecystectomy. 3. Underlying suspected severe disease. 4. Development of increased interstitial edema over the weekend. Clinically improving Plan . Clinically improving. Status post lasix 20 mg iv ,cont solumedrol 40 mg q 8hrs sob better after lasix liver bx 01/19 fu path Medical/Radiation Oncology recommendations once diagnosis is confirmed. Poor candidate for treatment. Continue GI prophylaxis lasix monitor k, cr Bronchodilators, duo neb Nicotine Patch for smoking cessation advised to quit smoking for ever overall prognosis poor primary to re address code status discussed w video journalist JAELYN GOODRICH MD Jan 22, 2022 10:03
--- NOTE | 2022-01-22 10:14 | PDOC ---
Date of Service: DATE: 01/22/22 TIME: 10:10 Subjective: Subjective: Tolerating diet, not much abdominal pain, hasn't stooled in a couple days. Tells me she's not sure she wants to pursue cancer treatment. Objective: Vital Signs: Vital Signs Date Time Temp Pulse Resp B/P (MAP) Pulse Ox O2 Delivery O2 Flow Rate FiO2 01/22/22 08:59 87 151/92 01/22/22 07:00 97.6 94 Nasal Cannula 2.0 97.6 01/22/22 03:00 20 Imaging: CXR 01/21 IMPRESSION: Left perihilar upper lobe mass concerning for malignancy again demonstrated. Development of new diffuse bilateral pulmonary infiltrates and opacities of the bilateral lower lobes and of the lingula, which likely represents pulmonary edema. There is a mild left pleural effusion which has also developed. PE: GEN: appears chronically ill LUNGS: crackles, seems breathless at times, 2L NC HEART: RRR ABD: soft, non-tender NEURO/PSYCH: A & O 3, lethargic A/P: Concern for metastatic lung cancer s/p liver biopsy Resp failure Elevated LFTs - improved overall +cocaine +cannabinoids COVID negative -- Biopsy results pending. Goals of care per primary. Has options for constipation. Justicifation of Admission Dx: Justifications for Admission: Justification of Admission Dx: N/A DAISY CLANCY Jan 22, 2022 10:14
[2022-01-22] MEDS ORDERED: BISACODYL 5 MG TABLET.DR. PO PRN (10:15)
[2022-01-22 11:00] VITALS: BP 140/82
[2022-01-22] MEDS: POLYETHYLENE GLYCOL 3350 17 GM PACKET. PO SCH (11:43)
--- NOTE | 2022-01-22 12:43 | NUR ---
SW following. Discussed with RN, pt from home with spouse, 2L (does not use oxygen at home), regular diet, COVID-19 negative. Pt not sure if she wants to pursue cancer treatment. Pt's brother, Bill (ph: [phone]) wondering about discharge planning. Pt wanting to go home. SW will continue to follow.
[2022-01-22] MEDS: DICYCLOMINE HCL 10 MG CAPSULE PO PRN (12:47)
--- NOTE | 2022-01-22 14:31 | PDOC2 ---
CONSULT Date of Consult Date of Consult DATE: 01/22/22 TIME: 14:09 Reason for Consult Reason for Consult: Metastatic lung cancer Identification/Chief Complaint Chief Complaint abdominal pain Source Source: Chart review, Patient History of Present Illness Reason for Visit: Mrs. Skinner is a 66-year-old woman who presented to the ED on 01/04/2022 for constant abdominal pain. CT abdomen pelvis on 01/04/2022 showed 4.3 cm left upper lobe mass, contiguous with 2.6 cm AP window mass and 1.7 cm left suprahilar lymph node. There was 1.5 cm right paratracheal lymph node. In the abdomen, there were multiple hepatic metastases, with the largest hepatic mass measured 3.9 cm in segment 2. There was 2.3 cm left adrenal mass as well. There was gallstones with mild gallbladder wall thickening with suspected common duct stone at ampulla and borderline biliary dilatation. Abdominal ultrasound on 01/04/2022 confirmed gallstone with pain to transducer pressure at right upper quadrant. At that time the patient decided that she would go to [place] to seek treatment and be closer with her family. Her plan to go to [place] failed. She returned to the ED on 01/16/2022 complaining of abdominal pain. Ultrasound-guided liver biopsy on 01/19/2022 gave a diagnosis of non-small cell carcinoma, pending immunohistochemistry. She is a lifelong smoker who started smoking at the age of 10. Her abdominal pain is constant, radiating to right chest, and not relieved with hydrocodone. She also reports nausea. She had 60 pound weight loss over the last year and a half. She takes laxative for constipation. Past Medical History Cardiovascular: CAD, HTN, NE, Hyperlipidemia Pulmonary: COPD Renal/: No pertinent hx Past Surgical History Past Surgical History: Appendectomy, Hysterectomy Family History Family History: Family History Unknown Social History <1 pack per day ALCOHOL: none Drugs: Cocaine, Marijuana Current Problem List Problem List Problems Medical Problems: (1) Intractable abdominal pain Status: Acute Current Medications Current Medications Current Medications Ondansetron HCl (Zofran) 4 mg 1X ONCE IVP Last administered on 01/16/22at 15:01; Start 01/16/22 at 14:45; Stop 01/16/22 at 14:46; Status DC Morphine Sulfate (Morphine Sulfate) 4 mg 1X ONCE IVP Last administered on 01/16/22at 15:04; Start 01/16/22 at 14:45; Stop 01/16/22 at 14:46; Status DC Sodium Chloride 1,000 ml @ 1,000 mls/hr 1X ONCE IV Last administered on 01/16/22at 15:41; Start 01/16/22 at 15:30; Stop 01/16/22 at 16:29; Status DC Morphine Sulfate (Morphine Sulfate) 4 mg 1X ONCE IVP Last administered on 01/16/22at 17:48; Start 01/16/22 at 17:45; Stop 01/16/22 at 17:46; Status DC Ondansetron HCl (Zofran) 4 mg 1X ONCE IVP Last administered on 01/16/22at 17:45; Start 01/16/22 at 17:45; Stop 01/16/22 at 17:46; Status DC Ondansetron HCl (Zofran) 4 mg PRN Q8HRS PRN IVP NAUSEA/VOMITING Last administered on 01/17/22at 15:00; Start 01/16/22 at 18:00; Stop 01/17/22 at 17:59; Status DC Morphine Sulfate (Morphine Sulfate) 4 mg PRN Q2HR PRN IVP PAIN Last admin istered on 01/20/22at 13:15; Start 01/16/22 at 18:00; Stop 01/20/22 at 13:28; Status DC Acetaminophen (Tylenol) 650 mg PRN Q4HRS PRN PO FEVER > 100.3'F; Start 01/16/22 at 18:00; Stop 01/17/22 at 17:59; Status DC Albuterol Sulfate (Ventolin Neb Soln) 2.5 mg PRN Q4HRS PRN INH wheezing Last administered on 01/21/22at 04:50; Start 01/17/22 at 08:15 Aspirin (Aspirin Chewable) 81 mg DAILY PO Last administered on 01/22/22at 08:59; Start 01/17/22 at 09:00 Atorvastatin Calcium (Lipitor) 40 mg HS PO Last administered on 01/21/22at 22:19; Start 01/17/22 at 21:00 Carvedilol (Coreg) 6.25 mg BIDWMEALS PO Last administered on 01/22/22at 08:59; Start 01/17/22 at 08:30 Furosemide (Lasix) 20 mg DAILY PO Last administered on 01/22/22 08:58; Start 01/17/22 at 09:00 Gabapentin (Neurontin) 300 mg PRN BID PRN PO HEADACHE; Start 01/17/22 at 08:15 Lisinopril (Prinivil) 10 mg QHS PO Last administered on 01/21/22 22:19; Start 01/17/22 at 21:00 Ondansetron HCl (Zofran Odt) 4 mg PRN Q6HRS PRN PO NAUSEA/VOMITING Last administered on 01/21/22 23:58; Start 01/17/22 at 08:15 Oxycodone/ Acetaminophen (Percocet 5/325) 1 tab PRN Q4HRS PRN PO MODERATE TO SEVERE PAIN Last administered on 01/21/22 17:59; Start 01/17/22 at 08:15 Quetiapine Fumarate (SEROquel) 25 mg HS PO Last administered on 01/21/22 22:18; Start 01/17/22 at 21:00 Spironolactone (Aldactone) 25 mg DAILY PO Last administered on 01/22/22 08:58; Start 01/17/22 at 09:00 Sucralfate (Carafate) 1 gm PRN DAILY PRN PO UPSET STOMACH Last administered on 01/20/22 05:32; Start 01/17/22 at 08:15; Stop 01/22/22 at 10:15; Status DC Trazodone HCl (Desyrel) 50 mg HS PO Last administered on 01/21/22 22:18; Start 01/17/22 at 21:00 Dicyclomine HCl (Bentyl) 20 mg PRN BID PRN PO ABDOMINAL CRAMPS Last administered on 01/22/22 12:47; Start 01/17/22 at 08:45 Pantoprazole Sodium (Protonix) 40 mg DAILYAC PO Last administered on 01/17/22 09:35; Start 01/17/22 at 09:00; Stop 01/17/22 at 11:16; Status DC Venlafaxine HCl (Effexor) 50 mg TID PO Last administered on 01/22/22 13:59; Start 01/17/22 at 09:00 Dextrose/Sodium Chloride 1,000 ml @ 100 mls/hr Q10H IV Last administered on 01/19/22at 21:49; Start 01/17/22 at 08:30; Stop 01/20/22 at 07:02; Status DC Nicotine (Nicoderm Cq 21mg) 1 patch DAILY TD Last administered on 01/22/22at 09:00; Start 01/17/22 at 10:00 Albuterol/ Ipratropium (Duoneb) 3 ml RTQID NEB Last administered on 01/22/22at 12:51; Start 01/17/22 at 12:00 Pantoprazole Sodium (PROTONIX VIAL for IV PUSH) 40 mg DAILYAC IVP ; Start 01/18/22 at 07:30; Stop 01/18/22 at 09:55; Status DC Pantoprazole Sodium (Protonix) 40 mg DAILYAC PO Last administered on 01/22/22at 06:14; Start 01/19/22 at 07:30 Polyethylene Glycol (miraLAX PACKET) 17 gm PRN DAILY PRN PO CONSTIPATION; Start 01/18/22 at 10:00; Stop 01/22/22 at 10:15; Status DC Bisacodyl (Dulcolax Tab) 10 mg PRN DAILY PRN PO CONSTIPATION; Start 01/18/22 at 10:00 Ondansetron HCl (Zofran) 4 mg PRN Q6HRS PRN IVP NAUSEA/VOMITING Last ad ministered on 01/21/22at 08:16; Start 01/19/22 at 07:15 Morphine Sulfate (Morphine Sulfate) 2 mg PRN Q2HR PRN IVP PAIN Last admi nistered on 01/22/22at 12:52; Start 01/19/22 at 09:00 Lidocaine HCl (Buffered Lidocaine 1%) 3 ml STK-MED ONCE .ROUTE ; Start 01/19/22 at 13:01; Stop 01/19/22 at 13:01; Status DC Midazolam HCl (Versed) 2 mg STK-MED ONCE .ROUTE ; Start 01/19/22 at 13:07; Stop 01/19/22 at 13:08; Status DC Fentanyl Citrate (Fentanyl 2ml Vial) 100 mcg STK-MED ONCE .ROUTE ; Start 01/19/22 at 13:07; Stop 01/19/22 at 13:08; Status DC Gelatin (Gelfoam Size 12-7mm) 1 each STK-MED ONCE .ROUTE ; Start 01/19/22 at 13:21; Stop 01/19/22 at 13:22; Status DC Lidocaine HCl (Buffered Lidocaine 1%) 3 ml 1X ONCE IJ Last administered on 01/19/22at 13:58; Start 01/19/22 at 14:00; Stop 01/19/22 at 14:01; Status DC Midazolam HCl (Versed) 2 mg 1X ONCE IV Last administered on 01/19/22at 13:54; Start 01/19/22 at 14:00; Stop 01/19/22 at 14:01; Status DC Fentanyl Citrate (Fentanyl 2ml Vial) 100 mcg 1X ONCE IV Last administered on 01/19/22at 13:54; Start 01/19/22 at 14:00; Stop 01/19/22 at 14:01; Status DC Methylprednisolone Sodium Succinate (SOLU-Medrol 125MG VIAL) 125 mg 1X ONCE IV Last administered on 01/20/22at 07:30; Start 01/20/22 at 07:15; Stop 01/20/22 at 07:17; Status DC Methylprednisolone Sodium Succinate (SOLU-Medrol 40MG VIAL) 40 mg Q8HRS IV Last administered on 01/22/22at 13:59; Start 01/20/22 at 14:00 Furosemide (Lasix) 20 mg 1X ONCE IVP Last administered on 01/21/22at 06:11; Start 01/21/22 at 06:30; Stop 01/21/22 at 06:31; Status DC Lorazepam (Ativan Inj) 2 mg PRN Q2HRS PRN IVP ANXIETY / AGITATION Last administered on 01/21/22at 18:05; Start 01/21/22 at 10:00 Polyethylene Glycol (miraLAX PACKET) 17 gm DAILY PO Last administered on 01/22/22at 11:43; Start 01/22/22 at 11:00 Bisacodyl (Dulcolax Tab) 5 mg PRN DAILY PRN PO CONSTIPATION; Start 01/22/22 at 10:15 Active Scripts Active Cefuroxime (Cefuroxime Axetil) 250 Mg Tablet 1 Tab PO BID 3 Days Ondansetron Odt (Ondansetron) 4 Mg Tab.rapdis 4 Mg PO PRN Q6HRS PRN 10 Days Percocet 5-325 Mg Tablet (Oxycodone/Acetaminophen) 1 Each Tablet 1 Tab PO PRN Q4HRS PRN 6 Days Reported Dicyclomine Hcl 20 Mg Tablet 20 Mg PO PRN BID Gabapentin (Gabapentin) 300 Mg Capsule 300 Mg PO PRN BID PRN Lidocaine PATCH (Lidocaine) 1 Each Adh..patch 1 Each TP PRN DAILY REMOVE AFTER 12 HOURS Sucralfate 1 Gm Tablet 1 Gm PO PRN DAILY PRN Proair Hfa (Albuterol Sulfate) 8.5 Gm Hfa.aer.ad 2 Puff IH PRN Q4HRS PRN 21 Days Flovent 220MCG Hfa (Fluticasone Propionate) 12 Gm Aer.w.adap 12 Gm IH BID Carvedilol (Carvedilol) 6.25 Mg Tablet 6.25 Mg PO BIDWMEALS Furosemide 20 Mg Tablet 20 Mg PO DAILY Aspirin 81 Mg Tab.chew 81 Mg PO DAILY Nexium Capsule (Esomeprazole Magnesium) 40 Mg Capsule.dr 40 Mg PO DAILYAC Atorvastatin Calcium 40 Mg Tablet 40 Mg PO HS Lisinopril 10 Mg Tablet 10 Mg PO QHS Seroquel (Quetiapine Fumarate) 25 Mg Tablet 25 Mg PO HS Spironolactone 25 Mg Tablet 25 Mg PO DAILY Venlafaxine Hcl Er (Venlafaxine Hcl) 150 Mg Tab.er.24 150 Mg PO DAILY Trazodone Hcl 50 Mg Tablet 50 Mg PO HS Allergies Allergies: Coded Allergies: No Known Drug Allergies (Unverified , 07/20/21) Physical Exam General: Alert, Oriented X3, Cooperative, No acute distress, Other (Oxygen NC in place) HEENT: Atraumatic, PERRLA, EOMI, Mucous membr. moist/pink Lungs: Normal air movement Heart: Regular rate Abdomen: Other (tenderness over right upper quadrant) Neuro: Normal speech, Strength at 5/5 X4 ext, Cranial nerves 3-12 NL Psych/Mental Status: Mental status NL Vitals VITALS Vital Signs Date Time Temp Pulse Resp B/P (MAP) Pulse Ox O2 Delivery O2 Flow Rate FiO2 01/22/22 13:30 19 93 Nasal Cannula 01/22/22 12:52 2.0 01/22/22 11:00 97.8 87 140/82 (101) 97.8 Assessment/Plan Assessment/Plan 66-year-old female with stage IV non-small cell carcinoma from the left upper lobe. She has right upper quadrant abdominal pain, which may be due to gallstones as well as liver metastases. Plan We discussed that palliative radiotherapy would most likely not help with her abdominal pain, especially if her pain is due to her gallstones. We recommend continuing medical pain management. Additionally, she probably would benefit from a surgical evaluation. We discussed cancer treatment, primarily with chemotherapy or immunotherapy. She indicated that she had medical oncology consult. GUADALUPE BARRERA MD Jan 22, 2022 14:31
[2022-01-22 15:00] VITALS: BP 154/92
[2022-01-22 19:00] VITALS: BP 148/88
[2022-01-22] MEDS: ATORVASTATIN CALCIUM 40 MG TABLET. PO SCH (21:00)
[2022-01-22] MEDS: QUEtiapine 25 MG TABLET. PO SCH (21:00)
[2022-01-22] MEDS: LISINOPRIL 10 MG TABLET PO SCH (21:00)
[2022-01-22] MEDS: traZODone 50 MG TABLET. PO SCH (21:00)
[2022-01-22 23:00] VITALS: BP 154/87
[2022-01-23] MEDS: methylPREDNISolone SOD SUCC PF 40 MG/ML VIAL. IV SCH ×4 (01:32→21:32)
[2022-01-23 03:00] VITALS: BP 144/91
[2022-01-23] MEDS: PANTOPRAZOLE 40 MG TABLET.DR. PO SCH (06:31)
[2022-01-23] MEDS: ONDANSETRON ODT 4 MG TAB.RAPDIS. PO PRN (06:31)
[2022-01-23] MEDS: MORPHINE SULFATE 2 MG/ML INJ. IVP PRN ×5 (06:43→17:02)
[2022-01-23 07:00] VITALS: BP 161/101
[2022-01-23] MEDS: NICOTINE 21MG PATCH. TD SCH (07:13)
[2022-01-23] MEDS: oxyCODONE/APAP 5/325 1 TAB TABLET PO PRN ×4 (08:38→21:32)
[2022-01-23] MEDS: IPRATRPIUM/ALBUTEROL 0.5/2.5MG 3 ML NEBU. NEB SCH ×4 (08:39→20:13)
[2022-01-23] MEDS: CARVEDILOL 6.25 MG TABLET. PO SCH ×2 (08:41→17:01)
[2022-01-23] MEDS: SPIRONOLACTONE 25 MG TABLET PO SCH (08:41)
[2022-01-23] MEDS: VENLAFAXINE 50 MG TABLET. PO SCH ×3 (08:41→21:31)
[2022-01-23] MEDS: FUROSEMIDE 20 MG TABLET PO SCH (08:42)
[2022-01-23] MEDS: ASPIRIN CHEWABLE 81 MG TABLET. PO SCH (08:42)
[2022-01-23] MEDS: POLYETHYLENE GLYCOL 3350 17 GM PACKET. PO SCH (09:00)
--- NOTE | 2022-01-23 09:15 | PDOC ---
[employer] PROGRESS NOTE Date of Service DOS: Late entry January 22 Chief Complaint Chief Complaint acute on prior known abdominal pain, percocet and morphine lung mass, likley Adenocarcinoma of lung, weakness, deblity nausea tobacco use disorder polysubstance abuse, recent cocaine and THC History of Present Illness History of Present Illness 01/22 Patient evaluated examined at bedside. Resting in bed pretty withdrawn today. Oncology consults today. Continue current otherwise. 01/21 Patient evaluated examined at bedside. Reporting shortness of breath and anxiety this morning. Check chest x-ray. Pulmonary following. Continue current. Possible discharge this coming week 01/20 Evaluate examined at bedside. Continue current plan. Biopsy results pending. PT OT. Discussed with bedside RN. 01/19, biopsy later today, IV pain meds needed this AM, IV ms04 ordered start PT and OT after lack of support at home, her "works all the time" Advacned care planning stated, is still full code, will needs review, lack of assistance is noteworthy, 20 minutes, planning IR to biopsy in AM she had difficulty with getting IV< anethesia got EJ, patient was reticent to have people try IV, and asked for a central line, she may need a PORT, but would be beneficial to have biopsy results for that plan. plan has been delayed due to her prior thoughts that she would go to [place]. Her is here and she did not mention him until today, was animated about her brother coming yesterday and today she says that was all a dream Vitals/I&O Vitals/I&O: Vital Signs Date Time Temp Pulse Resp B/P (MAP) Pulse Ox O2 Delivery O2 Flow Rate FiO2 01/23/22 09:09 18 97 Nasal Cannula 4.0 01/23/22 08:41 96 161/101 01/23/22 07:00 97.7 97.7 I & O 01/22/22 01/22/22 01/23/22 15:00 23:00 07:00 Output Total 0 ml Balance 0 ml Physical Exam General: Alert, Oriented X3, Cooperative, No acute distress, Other (Oxygen NC in place) Heart: Regular rate Lungs: Wheezing, Crackles Abdomen: Other (tenderness over right upper quadrant) Extremities: No cyanosis Skin: No breakdown Assessment and Plan Assessmemt and Plan Problems Medical Problems: (1) Intractable abdominal pain Status: Acute Comment Review of Relevant I have reviewed the following items rema (where applicable) has been applied. Medications: Current Medications Medications (Trade) Dose Ordered Sig/Shanti Route PRN Reason Start Time Stop Time Status Last Admin Dose Admin Polyethylene Glycol (miraLAX PACKET) 17 gm DAILY PO 01/22/22 11:00 01/22/22 11:43 Justifications for Admission Other Justification Small bowel obstruction SHANTI LOPEZ MD Jan 23, 2022 09:15
--- NOTE | 2022-01-23 10:05 | PDOC ---
[employer] PROGRESS NOTE Date of Service DOS: DATE: 01/23/22 TIME: 10:04 Chief Complaint Chief Complaint acute on prior known abdominal pain, percocet and morphine lung mass, likley Adenocarcinoma of lung, weakness, deblity nausea tobacco use disorder polysubstance abuse, recent cocaine and THC History of Present Illness History of Present Illness 01/23/2022: Patient still complains of chronic cough and pain. Will increase morphine and add guaifenesin. Patient is now agreeable to home hospice; will consult social science professor in this regard. Case discussed with Dr. Olivares. 01/22 Patient evaluated examined at bedside. Resting in bed pretty withdrawn today. Oncology consults today. Continue current otherwise. 01/21 Patient evaluated examined at bedside. Reporting shortness of breath and anxiety this morning. Check chest x-ray. Pulmonary following. Continue current. Possible discharge this coming week 01/20 Evaluate examined at bedside. Continue current plan. Biopsy results pending. PT OT. Discussed with bedside RN. 01/19, biopsy later today, IV pain meds needed this AM, IV ms04 ordered start PT and OT after lack of support at home, her "works all the time" Advacned care planning stated, is still full code, will needs review, lack of assistance is noteworthy, 20 minutes, planning IR to biopsy in AM she had difficulty with getting IV< anethesia got EJ, patient was reticent to have people try IV, and asked for a central line, she may need a PORT, but would be beneficial to have biopsy results for that plan. plan has been delayed due to her prior thoughts that she would go to [place]. Her is here and she did not mention him until today, was animated about her brother coming yesterday and today she says that was all a dream Vitals/I&O Vitals/I&O: Vital Signs Date Time Temp Pulse Resp B/P (MAP) Pulse Ox O2 Delivery O2 Flow Rate FiO2 01/23/22 09:38 16 97 Nasal Cannula 4.0 01/23/22 08:41 96 161/101 01/23/22 07:00 97.7 97.7 I & O 01/22/22 01/22/22 01/23/22 15:00 23:00 07:00 Output Total 0 ml Balance 0 ml Physical Exam General: Alert, Oriented X3, Cooperative, No acute distress, Other (Oxygen NC in place) Heart: Regular rate Lungs: Wheezing, Crackles Abdomen: Other (tenderness over right upper quadrant) Extremities: No cyanosis Skin: No breakdown Assessment and Plan Assessmemt and Plan Problems Medical Problems: (1) Intractable abdominal pain Status: Acute Comment Review of Relevant I have reviewed the following items rema (where applicable) has been applied. Medications: Current Medications Medications (Trade) Dose Ordered Sig/Shanti Route PRN Reason Start Time Stop Time Status Last Admin Dose Admin Polyethylene Glycol (miraLAX PACKET) 17 gm DAILY PO 01/22/22 11:00 01/22/22 11:43 Justifications for Admission Other Justification Small bowel obstruction EDGARDO BRAN MD Jan 23, 2022 10:05
--- NOTE | 2022-01-23 10:08 | PDOC ---
PULMONARY PROGRESS NOTES DATE: 01/23/22 TIME: 10:06 Subjective on 02 4 lpm . developed congestive heart rate over the weekend. Clinically better. liver bx 01/19. Preliminary confirm malignancy. Special stains pending. Vitals Vital Signs Date Time Temp Pulse Resp B/P (MAP) Pulse Ox O2 Delivery O2 Flow Rate FiO2 01/23/22 09:38 16 97 Nasal Cannula 4.0 01/23/22 08:41 96 161/101 01/23/22 07:00 97.7 97.7 General: Alert, No acute distress Lungs: Wheezing, Crackles Cardiovascular: S1, S2 Abdomen: Soft, Other (Diffuse tenderness in the mid abdominal area.) Neuro Exam: Alert Extremities: No Edema Skin: Warm Medications Active Scripts Medications Dose Route/Sig Max Daily Dose Days Date Category Dose Instructions Cefuroxime (Cefuroxime Axetil) 250 Mg Tablet 1 Tab PO BID 3 01/09/22 Rx Ondansetron Odt (Ondansetron) 4 Mg Tab.rapdis 4 Mg PO PRN Q6HRS PRN 10 01/09/22 Rx Percocet 5-325 Mg Tablet (Oxycodone/Acetaminophen) 1 Each Tablet 1 Tab PO PRN Q4HRS PRN 6 01/09/22 Rx Dicyclomine Hcl 20 Mg Tablet 20 Mg PO PRN BID 07/21/21 Reported Gabapentin (Gabapentin) 300 Mg Capsule 300 Mg PO PRN BID PRN 07/21/21 Reported Lidocaine PATCH (Lidocaine) 1 Each Adh..patch 1 Each TP PRN DAILY 07/21/21 Reported REMOVE AFTER 12 HOURS Sucralfate 1 Gm Tablet 1 Gm PO PRN DAILY PRN 07/21/21 Reported Proair Hfa (Albuterol Sulfate) 8.5 Gm Hfa.aer.ad 2 Puff IH PRN Q4HRS PRN 21 07/21/21 Reported Flovent 220MCG Hfa (Fluticasone Propionate) 12 Gm Aer.w.adap 12 Gm IH BID 07/21/21 Reported Carvedilol (Carvedilol) 6.25 Mg Tablet 6.25 Mg PO BIDWMEALS 07/20/21 Reported Furosemide 20 Mg Tablet 20 Mg PO DAILY 07/20/21 Reported Aspirin 81 Mg Tab.chew 81 Mg PO DAILY 07/20/21 Reported Nexium Capsule (Esomeprazole Magnesium) 40 Mg Capsule. 40 Mg PO DAILYAC 07/20/21 Reported Atorvastatin Calcium 40 Mg Tablet 40 Mg PO HS 07/20/21 Reported Lisinopril 10 Mg Tablet 10 Mg PO QHS 07/20/21 Reported Seroquel (Quetiapine Fumarate) 25 Mg Tablet 25 Mg PO HS 07/20/21 Reported Spironolactone 25 Mg Tablet 25 Mg PO DAILY 07/20/21 Reported Venlafaxine Hcl Er (Venlafaxine Hcl) 150 Mg Tab.er.24 150 Mg PO DAILY 07/20/21 Reported Trazodone Hcl 50 Mg Tablet 50 Mg PO HS 07/20/21 Reported Comments cxr 01/21 reviewed Left perihilar upper lobe mass concerning for malignancy again demonstrated. Development of new diffuse bilateral pulmonary infiltrates and opacities of the bilateral lower lobes and of the lingula, which likely represents pulmonary edema. There is a mild left pleural effusion which has also developed. Impression . 1. The patient with highly suspected stage 4 lung cancer. She recently presented in late December with an abnormal CT chest and abdomen. She was found to have a left upper lobe mass 4.3 cm in size along with evidence of metastasis to the mediastinal lymph nodes, diffuse liver metastasis and left adrenal gland metastasis. She has not had a workup done as she wanted to go to [place] and have all the workup done over there. Status post liver biopsy 01/19/2022 2. Abdominal pain. Recent CT abdomen and pelvis suggestive of cholelithiasis as well as common duct stone at the ampulla. There was borderline biliary dilatation. Seen by GI and general surgery. No plans for cholecystectomy. 3. Underlying suspected severe disease. 4. Development of increased interstitial edema over the weekend. Clinically improving Plan . Clinically improving. Status post lasix 20 mg iv ,cont solumedrol 40 mg q 8hrs sob better after lasix liver bx 01/19 fu path Medical/Radiation Oncology recommendations reviewed. Patient has mentioned to me that she does not want to undergo any chemo. I did offered radiation per Dr. Briones's recommendations. Patient does not want to undergo radiation either. She prefers to go home. She is agreeable for hospice evaluation. Discussed with patient's PCP Continue GI prophylaxis lasix monitor k, cr Bronchodilators, duo neb Nicotine Patch for smoking cessation advised to quit smoking for ever overall prognosis poor . patient is DNR now discussed w renal dialysis rn JAELYN GOODRICH MD Jan 23, 2022 10:08
--- NOTE | 2022-01-23 10:21 | PDOC ---
Date of Service: DATE: 01/23/22 TIME: 10:18 Subjective: Subjective: Pt seen w/ Dr. Olivares - prelim discussion w/ pathologist revealed biopsy confirmed cancer - pt can't remember which specialists she's seen but says she's decided not to pursue treatment and would like to discuss Hospice. Objective: Vital Signs: Vital Signs Date Time Temp Pulse Resp B/P (MAP) Pulse Ox O2 Delivery O2 Flow Rate FiO2 01/23/22 09:38 16 97 Nasal Cannula 4.0 01/23/22 08:41 96 161/101 01/23/22 07:00 97.7 97.7 PE: GEN: NAD LUNGS: diminished HEART: RRR ABD: soft, non-tender NEURO/PSYCH: A & O 3, forgetful A/P: Concern for metastatic lung cancer s/p liver biopsy -- She has requested Hospice eval as above. Justicifation of Admission Dx: Justifications for Admission: Justification of Admission Dx: N/A DAISY CLANCY Jan 23, 2022 10:21
[2022-01-23 11:00] VITALS: BP 159/97
[2022-01-23] MEDS: guaiFENesin DM 200MG/20MG 10 ML SYRUP PO PRN ×2 (12:50→22:17)
--- NOTE | 2022-01-23 13:05 | NUR ---
SW following. Discussed with Dr. Nieto - referral to [facility] made, awaiting outcome. SW will continue to follow.
[2022-01-23 15:00] VITALS: BP 148/95
[2022-01-23 19:45] VITALS: BP 157/95
[2022-01-23] MEDS: ATORVASTATIN CALCIUM 40 MG TABLET. PO SCH (21:31)
[2022-01-23] MEDS: traZODone 50 MG TABLET. PO SCH (21:31)
[2022-01-23] MEDS: QUEtiapine 25 MG TABLET. PO SCH (21:31)
[2022-01-23] MEDS: LISINOPRIL 10 MG TABLET PO SCH (21:32)
[2022-01-23] MEDS: ONDANSETRON PF 4 MG/2 ML VIAL. IVP PRN (21:35)
[2022-01-23 23:26] VITALS: BP 148/87
[2022-01-24 02:15] VITALS: BP 128/72
[2022-01-24] MEDS: oxyCODONE/APAP 5/325 1 TAB TABLET PO PRN (02:16)
[2022-01-24] MEDS: MORPHINE SULFATE 2 MG/ML INJ. IVP PRN ×4 (02:16→14:34)
[2022-01-24] MEDS: methylPREDNISolone SOD SUCC PF 40 MG/ML VIAL. IV SCH ×2 (05:48→14:33)
[2022-01-24 07:00] VITALS: BP 139/82
[2022-01-24] MEDS: IPRATRPIUM/ALBUTEROL 0.5/2.5MG 3 ML NEBU. NEB SCH ×2 (07:52→11:35)
[2022-01-24] MEDS: NICOTINE 21MG PATCH. TD SCH (08:32)
[2022-01-24] MEDS: ASPIRIN CHEWABLE 81 MG TABLET. PO SCH (08:32)
[2022-01-24] MEDS: POLYETHYLENE GLYCOL 3350 17 GM PACKET. PO SCH (08:32)
[2022-01-24] MEDS: VENLAFAXINE 50 MG TABLET. PO SCH ×2 (08:33→14:33)
[2022-01-24] MEDS: FUROSEMIDE 20 MG TABLET PO SCH (08:33)
[2022-01-24] MEDS: PANTOPRAZOLE 40 MG TABLET.DR. PO SCH (08:33)
[2022-01-24] MEDS: SPIRONOLACTONE 25 MG TABLET PO SCH (08:34)
[2022-01-24] MEDS: CARVEDILOL 6.25 MG TABLET. PO SCH (08:34)
--- NOTE | 2022-01-24 09:36 | PDOC ---
Date of Service: DATE: 01/24/22 TIME: 09:34 Subjective: Subjective: Tells me plans for home health and Hospice. Breakfast was good - says hasn't lost her appetite through all this. Objective: Vital Signs: Vital Signs Date Time Temp Pulse Resp B/P (MAP) Pulse Ox O2 Delivery O2 Flow Rate FiO2 01/24/22 08:34 80 139/82 01/24/22 07:52 98 Nasal Cannula 4.0 01/24/22 07:00 97.3 14 97.3 PE: GEN: NAD LUNGS: diminished, NC 4L HEART: RRR ABD: soft, non-distended, non-tender NEURO/PSYCH: A & O 3, cheerful A/P: Concern for metastatic lung cancer s/p liver biopsy - prelim report confirm malignancy -- Seems like plans for Hospice. Supportive care from GI standpoint. Justicifation of Admission Dx: Justifications for Admission: Justification of Admission Dx: N/A DAISY CLANCY Jan 24, 2022 09:36
--- NOTE | 2022-01-24 10:12 | PDOC ---
PULMONARY PROGRESS NOTES DATE: 01/24/22 TIME: 10:11 Subjective on 02 4 lpm . developed congestive heart rate over the weekend. Clinically better. liver bx 01/19. Preliminary confirm malignancy. Special stains pending. Vitals Vital Signs Date Time Temp Pulse Resp B/P (MAP) Pulse Ox O2 Delivery O2 Flow Rate FiO2 01/24/22 08:34 80 139/82 01/24/22 07:52 98 Nasal Cannula 4.0 01/24/22 07:00 97.3 14 97.3 General: Alert, No acute distress Lungs: Wheezing, Crackles Cardiovascular: S1, S2 Abdomen: Soft, Other (Diffuse tenderness in the mid abdominal area.) Neuro Exam: Alert Extremities: No Edema Skin: Warm Medications Active Scripts Medications Dose Route/Sig Max Daily Dose Days Date Category Dose Instructions Cefuroxime (Cefuroxime Axetil) 250 Mg Tablet 1 Tab PO BID 3 01/09/22 Rx Ondansetron Odt (Ondansetron) 4 Mg Tab.rapdis 4 Mg PO PRN Q6HRS PRN 10 01/09/22 Rx Percocet 5-325 Mg Tablet (Oxycodone/Acetaminophen) 1 Each Tablet 1 Tab PO PRN Q4HRS PRN 6 01/09/22 Rx Dicyclomine Hcl 20 Mg Tablet 20 Mg PO PRN BID 07/21/21 Reported Gabapentin (Gabapentin) 300 Mg Capsule 300 Mg PO PRN BID PRN 07/21/21 Reported Lidocaine PATCH (Lidocaine) 1 Each Adh..patch 1 Each TP PRN DAILY 07/21/21 Reported REMOVE AFTER 12 HOURS Sucralfate 1 Gm Tablet 1 Gm PO PRN DAILY PRN 07/21/21 Reported Proair Hfa (Albuterol Sulfate) 8.5 Gm Hfa.aer.ad 2 Puff IH PRN Q4HRS PRN 21 07/21/21 Reported Flovent 220MCG Hfa (Fluticasone Propionate) 12 Gm Aer.w.adap 12 Gm IH BID 07/21/21 Reported Carvedilol (Carvedilol) 6.25 Mg Tablet 6.25 Mg PO BIDWMEALS 07/20/21 Reported Furosemide 20 Mg Tablet 20 Mg PO DAILY 07/20/21 Reported Aspirin 81 Mg Tab.chew 81 Mg PO DAILY 07/20/21 Reported Nexium Capsule (Esomeprazole Magnesium) 40 Mg Capsule. 40 Mg PO DAILYAC 07/20/21 Reported Atorvastatin Calcium 40 Mg Tablet 40 Mg PO HS 07/20/21 Reported Lisinopril 10 Mg Tablet 10 Mg PO QHS 07/20/21 Reported Seroquel (Quetiapine Fumarate) 25 Mg Tablet 25 Mg PO HS 07/20/21 Reported Spironolactone 25 Mg Tablet 25 Mg PO DAILY 07/20/21 Reported Venlafaxine Hcl Er (Venlafaxine Hcl) 150 Mg Tab.er.24 150 Mg PO DAILY 07/20/21 Reported Trazodone Hcl 50 Mg Tablet 50 Mg PO HS 07/20/21 Reported Comments cxr 01/21 reviewed Left perihilar upper lobe mass concerning for malignancy again demonstrated. Development of new diffuse bilateral pulmonary infiltrates and opacities of the bilateral lower lobes and of the lingula, which likely represents pulmonary edema. There is a mild left pleural effusion which has also developed. Impression . 1. The patient with highly suspected stage 4 lung cancer. She recently presented in late December with an abnormal CT chest and abdomen. She was found to have a left upper lobe mass 4.3 cm in size along with evidence of metastasis to the mediastinal lymph nodes, diffuse liver metastasis and left adrenal gland metastasis. She has not had a workup done as she wanted to go to [place] and have all the workup done over there. Status post liver biopsy 01/19/2022 2. Abdominal pain. Recent CT abdomen and pelvis suggestive of cholelithiasis as well as common duct stone at the ampulla. There was borderline biliary dilatation. Seen by GI and general surgery. No plans for cholecystectomy. 3. Underlying suspected severe disease. 4. Development of increased interstitial edema over the weekend. Clinically improving Plan . Clinically improving. Status post lasix 20 mg iv ,cont solumedrol 40 mg q 8hrs sob better after lasix liver bx 01/19 fu path Medical/Radiation Oncology recommendations reviewed. Patient has mentioned to me that she does not want to undergo any chemo. I did suggested radiation per Dr. Briones's recommendations. Patient does not want to undergo radiation either. She prefers to go home. She is agreeable for hospice evaluation. Discussed with patient's PCP Continue GI prophylaxis lasix monitor k, cr Bronchodilators, duo neb Nicotine Patch for smoking cessation advised to quit smoking for ever overall prognosis poor . patient is DNR now discussed w internet ecommerce specialist Awaiting hospice evaluation. We will see her as needed. JAELYN GOODRICH MD Jan 24, 2022 10:12
--- NOTE | 2022-01-24 10:40 | PDOC ---
[facility] PROGRESS NOTE Date of Service DOS: DATE: 01/24/22 TIME: 10:35 Chief Complaint Chief Complaint acute on prior known abdominal pain, percocet and morphine lung mass, likley Adenocarcinoma of lung, weakness, deblity nausea tobacco use disorder polysubstance abuse, recent cocaine and THC History of Present Illness History of Present Illness 01/24/2022 No acute events overnight. Patient seen examined bedside. Patient tolerating diet without any complaints at this time. Saturating well on 4 L nasal cannula. Pending hospice evaluation. Patient's chart, labs, images were reviewed and discussed with RN 01/23/2022: Patient still complains of chronic cough and pain. Will increase morphine and add guaifenesin. Patient is now agreeable to home hospice; will consult case management social worker in this regard. Case discussed with Dr. Olivares. 01/22 Patient evaluated examined at bedside. Resting in bed pretty withdrawn today. Oncology consults today. Continue current otherwise. 01/21 Patient evaluated examined at bedside. Reporting shortness of breath and anxiety this morning. Check chest x-ray. Pulmonary following. Continue current. Possible discharge this coming week 01/20 Evaluate examined at bedside. Continue current plan. Biopsy results pending. PT OT. Discussed with bedside RN. 01/19, biopsy later today, IV pain meds needed this AM, IV ms04 ordered start PT and OT after lack of support at home, her "works all the time" Advacned care planning stated, is still full code, will needs review, lack of assistance is noteworthy, 20 minutes, planning IR to biopsy in AM she had difficulty with getting IV< anethesia got EJ, patient was reticent to have people try IV, and asked for a central line, she may need a PORT, but would be beneficial to have biopsy results for that plan. plan has been delayed due to her prior thoughts that she would go to [place]. Her hu nica is here and she did not mention him until today, was animated about her brother coming yesterday and today she says that was all a dream Vitals/I&O Vitals/I&O: Vital Signs Date Time Temp Pulse Resp B/P (MAP) Pulse Ox O2 Delivery O2 Flow Rate FiO2 01/24/22 09:12 Room Air 01/24/22 08:34 80 139/82 01/24/22 08:00 4.0 01/24/22 07:52 98 01/24/22 07:00 97.3 14 97.3 I & O 01/23/22 01/23/22 01/24/22 15:00 23:00 07:00 Intake Total 650 ml Balance 650 ml Physical Exam General: Alert, Oriented X3, Cooperative, No acute distress, Other (Oxygen NC in place) Heart: Regular rate Lungs: Wheezing, Crackles Abdomen: Other (tenderness over right upper quadrant) Extremities: No cyanosis Skin: No breakdown Assessment and Plan Assessmemt and Plan Problems Medical Problems: (1) Intractable abdominal pain Status: Acute Comment Review of Relevant I have reviewed the following items rema (where applicable) has been applied. Justifications for Admission Other Justification Small bowel obstruction OUSMANE VIZCARRA MD Jan 24, 2022 10:40
[2022-01-24 11:00] VITALS: BP 141/91
--- NOTE | 2022-01-24 11:22 | SNU/HH DC ---
DISCHARGE ORDERS DISCHARGE INFORMATION: DISCHARGE DATE: Jan 24, 2022 FINAL DIAGNOSIS Problems Medical Problems: (1) Intractable abdominal pain Status: Acute CONDITION ON DISCHARGE: Guarded CODE STATUS: Code Status: DNR/DNI HOSPICE: HOSPICE: Yes HOSPICE EVAL & TREAT: Yes POST DISCHARGE ORDERS: ACTIVITY ORDERS: Activity as tolerated WEIGHT BEARING STATUS: As tolerated BATHING ORDERS: Shower-keep dressing dry, No Tub Bath until see DIET AFTER DISCHARGE: Cardiac WOUND/INCISION CARE: Change dressing CHECKS AFTER DISCHARGE: COMMENTS: upper abdomen FOLLOW-UP: PHYSICIAN FOLLOW-UP: Hospice evaluation BETH TREATMENT/EQUIPMENT ORDERS: ADAPTIVE EQUIPMENT NEEDED: None DISCHARGE MEDICATIONS: Home Meds Discontinued Reported Medications Dicyclomine Hcl (DICYCLOMINE HCL) 20 Mg Tablet, 20 MG PO PRN BID for abd pain/cramping, TAB 07/21/21 Gabapentin (GABAPENTIN ) 300 Mg Capsule, 300 MG PO PRN BID PRN for HEADACHE, CAP 07/21/21 Lidocaine (Lidocaine PATCH ) 1 Each Adh..patch, 1 EACH TP PRN DAILY for , PATCH REMOVE AFTER 12 HOURS 07/21/21 Sucralfate (SUCRALFATE) 1 Gm Tablet, 1 GM PO PRN DAILY PRN for NAUSEA/VOMITING, TAB 07/21/21 Albuterol Sulfate (Proair Hfa) 8.5 Gm Hfa.aer.ad, 2 PUFF IH PRN Q4HRS PRN for wheezing for 21 Days, #1 INHALER 0 Refills 07/21/21 Fluticasone Propionate (FLOVENT 220MCG HFA) 12 Gm Aer.w.adap, 12 GM IH BID for , EACH 07/21/21 Carvedilol (CARVEDILOL ) 6.25 Mg Tablet, 6.25 MG PO BIDWMEALS for CARDIAC, TAB 07/20/21 Furosemide (FUROSEMIDE) 20 Mg Tablet, 20 MG PO DAILY for , TAB 07/20/21 Aspirin (ASPIRIN) 81 Mg Tab.chew, 81 MG PO DAILY for , TAB.CHEW 07/20/21 Esomeprazole Magnesium (NEXIUM CAPSULE) 40 Mg Capsule.dr, 40 MG PO DAILYAC for , #30 CAP 0 Refills 07/20/21 Atorvastatin Calcium (ATORVASTATIN CALCIUM) 40 Mg Tablet, 40 MG PO HS for FOR CHOLESTEROL, #30 TAB 0 Refills 07/20/21 Lisinopril (LISINOPRIL) 10 Mg Tablet, 10 MG PO QHS for FOR HYPERTENSION, #30 TAB 0 Refills 07/20/21 Quetiapine Fumarate (SEROQUEL) 25 Mg Tablet, 25 MG PO HS for , TAB 07/20/21 Spironolactone (SPIRONOLACTONE) 25 Mg Tablet, 25 MG PO DAILY for , TAB 07/20/21 Venlafaxine Hcl (VENLAFAXINE HCL ER) 150 Mg Tab.er.24, 150 MG PO DAILY for , CAP.SR 07/20/21 Trazodone Hcl (TRAZODONE HCL) 50 Mg Tablet, 50 MG PO HS for , TAB 07/20/21 Discontinued Scripts Cefuroxime Axetil (CEFUROXIME) 250 Mg Tablet, 1 TAB PO BID for GBS UTI for 3 Days, #6 TAB 0 Refills Prov:SHANTI HICKS MD 01/09/22 Ondansetron (ONDANSETRON ODT) 4 Mg Tab.rapdis, 4 MG PO PRN Q6HRS PRN for NAUSEA/VOMITING for 10 Days, #30 TAB Prov:SHANTI HICKS MD 01/09/22 Oxycodone/Apap 5-325 (PERCOCET 5-325 MG TABLET ) 1 Each Tablet, 1 TAB PO PRN Q4HRS PRN for PAIN for 6 Days, #36 TAB Prov:SHANTI HICKS MD 01/09/22 OUSMANE VIZCARRA MD Jan 24, 2022 11:22
[2022-01-24] MEDS: guaiFENesin DM 200MG/20MG 10 ML SYRUP PO PRN (11:28)
[2022-01-24] MEDS: ONDANSETRON PF 4 MG/2 ML VIAL. IVP PRN (12:12)
--- NOTE | 2022-01-24 13:27 | NUR ---
SW following. Discussed with RN, pt signed consents for [facility], discharge orders faxed. Transportation arranged for between [phone] via [employer]. RN notified. SW met with pt to complete DPOA for Healthcare decisions. Original provided to pt, copy placed on chart.
[2022-01-24 15:00] VITALS: BP 160/93
--- NOTE | 2022-01-24 16:33 | NUR ---
pt discharge to home with [facility]. taken out by wheelchair with transportation
--- NOTE | 2022-01-24 17:07 | PATHOLOGY ---
[facility] Accession Number: [id number] . 01 Material submitted: . liver - LIVER MASS CORE BIOPSY . 01 Clinical history: . INTRACHOLE, ABD PAIN LIVER MASS LIVER BIOPSY . 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 SEE COMMENT. (JPM:tristan; 01/23/2022) MBR 01/24/2022 1058 Local . 02 Comment: Sections of the liver mass needle biopsy show extensive replacement of liver parenchyma by metastatic epithelial neoplasm. The malignant cells have an organoid nested appearance within a reactive desmoplastic stroma. The malignant cells are relatively large and have modest amount of eosinophilic cytoplasm. The malignant cells possess rounded to ovoid hyperchromatic nuclei containing nucleoli. Some of the nests of tumor cells show a suggestion of peripheral nuclear palisading. Some of the nests show central tumor necrosis. Mitotic figures are readily demonstrated. The tumor shows no obvious glandular or squamous differentiation. There are occasional entrapped bile ducts within the stroma. A properly controlled panel of immunoperoxidase stains is obtained on A1 and yields the following results: . Cytokeratin 7: Tumor cells focally positive. Cytokeratin 20: Tumor cells focally positive. TTF-1: Tumor cells negative. P40: Tumor cells negative. CK5/6: Tumor cells negative. P63: Tumor cells negative. Napsin A: Tumor cells negative. CD56: Significant subset of tumor cells positive. AE1/AE3: Tumor cells positive. Cytokeratin LORNE: Tumor cells positive. Synaptophysin: Rare tumor cells positive. Chromogranin: Tumor cells negative. Ki-67: Tumor shows high proliferation index 70-80%. . 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 . The case is also examined by Dr. Conway, who concurs with the diagnosis. Results are discussed with Dr. Olivares on 01/24/22 at 10:00 AM. . (JPM:outsole rounder; 01/23/2022) . . Special stains performed: Immunoperoxidase stains for CK7, CK20, TTF-1, CD56, Napsin A, p40, CK5/6, p63, synaptophysin, chromogranin, AE1/AE3, cytokeratin LORNE and Ki-67. . 02 Electronically signed: . Serg Melchor MD, Pathologist NPI- [id number] . 01 Gross description: . The specimen is received in formalin, labeled "Brody, Hansa, liver bx mass" and consists of 4 cylindrical needle core biopsies ranging in length from 0.3 cm to 1.4 cm and each averaging < 0.1 cm in diameter. The specimen is submitted in toto in 3 cassettes.([place]; 01/19/2022) DKA/DKA 01/19/2022 1639 Local . 02 Pathologist provided ICD-10: C78.7 . 02 CPT . 801791, R05625, N75075, 198936 Specimen Comment: A courtesy copy of this report has been sent to [phone], [phone] Specimen Comment: [id number], , , Specimen Comment: Report sent to , DR OLIVARES, DR TURNER, DR ALVES Specimen Comment: / DR BOURNE Specimen Comment: A duplicate report has been generated due to demographic updates. Performed at: 01 [facility] [address], [place] [id number] MD Reuben Rosario MD Phone: [phone] Performed at: 02 [facility] [address] [place], [place] [id number] MD Serg Melchor MD Phone: [phone]
--- NOTE | 2022-02-02 07:41 | PDOC3 ---
[facility]-Discharge Summary Date of Admission: Date of Admission: Jan 16, 2022 Date of Discharge: Date of Discharge: Jan 24, 2022 Discharge Diagnosis: Discharge Diagnosis: acute on prior known abdominal pain, percocet and morphine lung mass, likley Adenocarcinoma of lung, weakness, deblity nausea tobacco use disorder polysubstance abuse, recent cocaine and THC Hospital Course: Hospital Course: Patient discharged home with hospice. 01/24/2022 No acute events overnight. Patient seen examined bedside. Patient tolerating diet without any complaints at this time. Saturating well on 4 L nasal cannula. Pending hospice evaluation. Patient's chart, labs, images were reviewed and discussed with RN 01/23/2022: Patient still complains of chronic cough and pain. Will increase morphine and add guaifenesin. Patient is now agreeable to home hospice; will consult social work case manager in this regard. Case discussed with Dr. Olivares. 01/22 Patient evaluated examined at bedside. Resting in bed pretty withdrawn today. Oncology consults today. Continue current otherwise. 01/21 Patient evaluated examined at bedside. Reporting shortness of breath and anxiety this morning. Check chest x-ray. Pulmonary following. Continue current. Possible discharge this coming week 01/20 Evaluate examined at bedside. Continue current plan. Biopsy results pending. PT OT. Discussed with bedside RN. 01/19, biopsy later today, IV pain meds needed this AM, IV ms04 ordered start PT and OT after lack of support at home, her "works all the time" Advacned care planning stated, is still full code, will needs review, lack of assistance is noteworthy, 20 minutes, planning 66-year-old female readmitted to [facility] with abdominal pain. Left hilar mass known, CT showed 4.3 x 3.7 cm left upper lobe mass consistent with primary bronchogenic carcinoma. In addition, mediastinal lymphadenopathy, liver masses and left adrenal gland mass was noted. She was DC last week, indended on seeking care in [place] with family and has not done so. DId not get biopsy or treatment here last week, Onc consult, pt refused some thereapy and biopsy as she wanted to establish care elsewhere. Disposition: Disposition/Orders: D/C to Home w/ Hospice Activity: Activity: Resume previous activity Medications: Home Meds No Active Prescriptions or Reported Meds No Active Prescriptions or Reported Meds Total Time: Total Time: Total time spent was 40 minutes in preparing scripts, discharge planning with SWI and RN and preparing this discharge summary Patient seen and examined on day of discharge. No acute abnormal findings. Justicifation of Admission Dx: Justifications for Admission: Justification of Admission Dx: N/A OUSMANE VIZCARRA MD Feb 02, 2022 07:41
== END 2022-01-24 16:30 | disposition hospice, home (50) | DRG 180 ==
LOC: ER 13:42 → 4 NORTH 17:37
PROVIDERS: ADMIT Internal Medicine; ATTEND Internal Medicine
PROC: 0FB13ZX Excision of Right Lobe Liver, Percutaneous Approach, Diagnostic (ICD-10-PCS; principal; 2022-01-19)
DX: C34.12 Malignant neoplasm of upper lobe, left bronchus or lung (principal); J96.90 Respiratory failure, unspecified, unspecified whether with hypoxia or hypercapnia; C77.1 Secondary and unspecified malignant neoplasm of intrathoracic lymph nodes; C78.7 Secondary malignant neoplasm of liver and intrahepatic bile duct; C79.72 Secondary malignant neoplasm of left adrenal gland; J90 Pleural effusion, not elsewhere classified; K80.62 Calculus of gallbladder and bile duct with acute cholecystitis without obstruction; D64.9 Anemia, unspecified; E78.5 Hyperlipidemia, unspecified; F14.90 Cocaine use, unspecified, uncomplicated; F17.210 Nicotine dependence, cigarettes, uncomplicated; F41.9 Anxiety disorder, unspecified; I10 Essential (primary) hypertension; I25.10 Atherosclerotic heart disease of native coronary artery without angina pectoris; J44.9 Chronic obstructive pulmonary disease, unspecified; Z20.822 Contact with and (suspected) exposure to COVID-19; Z66 Do not resuscitate; Z85.118 Personal history of other malignant neoplasm of bronchus and lung; Z90.49 Acquired absence of other specified parts of digestive tract; Z90.710 Acquired absence of both cervix and uterus; K21.9 Gastro-esophageal reflux disease without esophagitis; G89.29 Other chronic pain; Z71.6 Tobacco abuse counseling
CPT/HCPCS: 36415; 47000; 71045; 74022; 76942; 80053; 80076; 80307; 81001; 85025; 85610; 85730; 87426; 88307; 88341; 88342; 88360; 94640; 94760; 96361; 96374; 96375; 96376; 99152; J1940; J2060; J2250; J2270; J2405; J2920; J2930; J3010; J3490; J7030; J7042; U0003; 99285-25; G0378; J7613

== ENCOUNTER 2022-01-26 17:30 | Inpatient (IN) | payer OTHER ==
[~2022-01-26] VITALS: Ht 147.3 cm; Wt 48.2 kg
[2022-01-26] MEDS ORDERED: MORPHINE SULFATE 20 MG/ML CONC SOLUTION. SL PRN (18:15)
[2022-01-26 19:00] VITALS: BP 140/77
[2022-01-26] MEDS: IPRATRPIUM/ALBUTEROL 0.5/2.5MG 3 ML NEBU. NEB SCH (20:04)
[2022-01-26] MEDS: SENNOSIDES/DOCUSATE 8.6/50MG TABLET. PO SCH (20:38)
[2022-01-26] MEDS: MORPHINE ER 15 MG TABLET.ER PO SCH (20:39)
[2022-01-26 23:00] VITALS: BP 120/62
[2022-01-27 03:18] VITALS: BP 139/76
[2022-01-27] MEDS: oxyCODONE IR 5 MG TABLET PO PRN ×4 (05:01→20:32)
[2022-01-27] MEDS: LORazepam 0.5 MG TABLET PO PRN ×2 (05:01→09:10)
[2022-01-27 07:00] VITALS: BP_SYST 142; BP_SYST 144; BP_DIAS 71; BP_DIAS 75
[2022-01-27] MEDS: IPRATRPIUM/ALBUTEROL 0.5/2.5MG 3 ML NEBU. NEB SCH ×4 (08:03→20:00)
[2022-01-27] MEDS: MORPHINE ER 15 MG TABLET.ER PO SCH ×2 (08:33→20:32)
[2022-01-27] MEDS: POLYETHYLENE GLYCOL 3350 17 GM PACKET. PO SCH (08:34)
[2022-01-27] MEDS ORDERED: LORazepam 0.5 MG TABLET PO PRN (09:30)
--- NOTE | 2022-01-27 09:37 | PN ---
DATE: 01/27/2022 SUBJECTIVE: The patient continued to be extremely confused, restless, agitated. PHYSICAL EXAMINATION: GENERAL: When I examined her, she was pale, cachectic, but no jaundice, cyanosis, no lymphadenopathy, no thyromegaly, no jugular venous distention. No lower limb edema. VITAL SIGNS: Her heart rate was 70, blood pressure 142/75, temperature was 98.2, respiratory rate 20, and oxygen saturation was 98% on 4 liters of oxygen. HEAD, EYES, EARS, NOSE, AND THROAT: Normocephalic, atraumatic. NECK: Supple. HEART: Showed normal first and second heart sounds. No gallop, rub or murmur. CHEST: Showed good chest expansion with air entry on the right side. Reduced chest expansion, air entry to the left side with some crepitation, although I could not appreciate any rhonchi. ABDOMEN: Distended, soft, diffusely tender, no guarding or rigidity. No organomegaly. All hernial orifice intact and bowel sounds are normal. NEUROLOGIC: She is confused, restless, agitated, but all her cranial nerves are intact. She moves extremities without difficulty. She ambulates without assistance or assistive devices. ASSESSMENT: 1. Primary left upper lobe bronchogenic carcinoma with metastasis to the mediastinal lymph nodes, liver and adrenal gland. 2. Chronic hypoxic respiratory failure. 3. Chronic obstructive pulmonary disease. 4. Hypertension. 5. Hyperlipidemia. 6. Coronary artery disease, status post myocardial infarction. PLAN: To continue with comfort measures. We will continue with her MS Contin, Roxanol, oxycodone and Ativan. We will increase the dose and frequency as needed for comfort. REJI DR: Mati TID: [id number]
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
[2022-01-27 11:18] VITALS: BP 114/58
[2022-01-27 14:47] VITALS: BP 122/70
[2022-01-27 19:51] VITALS: BP 131/75
[2022-01-27] MEDS: SENNOSIDES/DOCUSATE 8.6/50MG TABLET. PO SCH (20:32)
[2022-01-27 23:31] VITALS: BP 127/65
[2022-01-28 03:40] VITALS: BP 139/72
[2022-01-28 07:00] VITALS: BP 108/82
[2022-01-28] MEDS: IPRATRPIUM/ALBUTEROL 0.5/2.5MG 3 ML NEBU. NEB SCH ×4 (07:12→20:00)
[2022-01-28] MEDS: POLYETHYLENE GLYCOL 3350 17 GM PACKET. PO SCH (08:15)
[2022-01-28] MEDS: MORPHINE ER 15 MG TABLET.ER PO SCH ×2 (08:16→21:00)
[2022-01-28] MEDS: oxyCODONE IR 5 MG TABLET PO PRN (08:17)
[2022-01-28] MEDS ORDERED: guaiFENesin/CODEINE 100mg/10mg 5 ML LIQUID PO PRN (08:45)
--- NOTE | 2022-01-28 09:03 | PN ---
DATE: 01/28/2022 SUBJECTIVE: The patient continues to be extremely restless, agitated, has severe dry hacking cough and is very distressing. She does not keep her oxygen on. The cough is mostly dry. PHYSICAL EXAMINATION: GENERAL: When I examined her, she was pale, somewhat cachectic, but not jaundiced or cyanosed, no lymphadenopathy, no thyromegaly, no jugular venous distention. No limb edema. VITAL SIGNS: Her heart rate was 84, blood pressure is 108/82, temperature 97.9, respiratory rate was 18 and oxygen saturation was 90% on 2 liters of oxygen. HEAD, EYES, EARS, NOSE, AND THROAT: Normocephalic, atraumatic. NECK: Supple. HEART: Showed normal first and second heart sounds. No gallop, rub or murmur. CHEST: Shows central trachea. Good chest expansion with air entry on the right side, markedly reduced chest expansion, reduced air entry on the left side. ABDOMEN: Soft, nontender. NEUROLOGIC: She is awake, alert, but very agitated, restless and confused. All her cranial nerves are intact. She moves extremities without difficulty. She does ambulate without assistance or assistive devices. ASSESSMENT: 1. Primary left upper lobe bronchogenic carcinoma with metastasis to the mediastinal lymph nodes, liver and adrenal glands. 2. Chronic hypoxic respiratory failure. 3. Chronic obstructive pulmonary disease. 4. Hypertension. 5. Hyperlipidemia. 6. Coronary artery disease status post myocardial infarction. 7. Severe distressing hacking cough and marked agitation or restlessness. PLAN: I added Robitussin with codeine as a cough suppressant, I also added Zyprexa. Meanwhile, we will continue with all other medication including her morphine sulfate extended release as well as Roxanol and Ativan. If the patient continued to be extremely distressed like that maybe she is better off with continuous morphine drip. NINO DR: Mati TID: [id number]
[2022-01-28 11:00] VITALS: BP 112/76
[2022-01-28] MEDS ORDERED: NALOXONE 0.4 MG/ML VIAL. IV PRN ×2 (11:00→19:00)
[2022-01-28] MEDS ORDERED: IV NORMAL SALINE 1000ML BAG 1,000 ML IV SCH ×2 (11:00→19:00)
[2022-01-28] MEDS ORDERED: ONDANSETRON PF 4 MG/2 ML VIAL. IVP PRN (11:00)
[2022-01-28] MEDS: MORPHINE SULFATE 30 ML IV PRN ×2 (11:52→18:05)
--- NOTE | 2022-01-28 12:01 | NUR ---
Patient extremely restless and moaning in pain, stated that she "just wants to ". Order received from Dr. Santillan for Morphine WARP DOFFER and PRN Zofran, IV started, #22 in right thumb, bed alarm in place.
[2022-01-28 15:00] VITALS: BP 100/54
[2022-01-28 19:00] VITALS: BP 97/55
[2022-01-28] MEDS ORDERED: MORPHINE SULFATE 30 ML IV PRN (19:00)
--- NOTE | 2022-01-28 19:30 | NUR ---
Pt assessed during the noc, unresponsive, agonal breathing noted. Pt continues on morphine gtt however rate has been reduced to 2mg/hr. Will continue to monitor. Pt with low O2 sats noted.
[2022-01-28] MEDS: SENNOSIDES/DOCUSATE 8.6/50MG TABLET. PO SCH (21:00)
--- NOTE | 2022-01-28 21:20 | NUR ---
Informed of pt not responding at this time and PCT wanting this nurse to assess pt. Entered room and noted no breathing. Auscultated with stethoscope for 1 min and noted no breath sounds or heart rate noted. Neela RN came in room to assess breath sounds and heart rate. No sounds or pulse noted. Pt pronounced by 2 RN's at 2124. Pt cleansed and repositioned in bed. Multiple phone call attempts made to Zain Skinner. No answer. Called [facility] [address], [facility], attempts to Zain and John/brother at 2149. Spoke to [place] 2157 and received ref#[id number]. Dr. Santillan 2209, Spoke to eye donation at 2229. Called [id number] r[facility]iana and she states that she will notify her Yashe of pt's passing which is pt's brother and she states someone will call in the am.
--- NOTE | 2022-01-29 07:48 | NUR ---
Attempted to call Zain Skinner this am however no answer left message for pt to call unit. [facility] called multiple times this am for possible call to family for donation however unable to reach . Did speak to brother Bill at 0100 today and states he will call his sister and see what they can do about the home. Brother states we probably will not hear from the spouse, brother states he does not care.
== END 2022-01-29 00:31 | DRG 181 ==
LOC: 5 NORTH 17:30
PROVIDERS: ADMIT Internal Medicine; ATTEND Internal Medicine
DX: C34.12 Malignant neoplasm of upper lobe, left bronchus or lung (principal); C77.1 Secondary and unspecified malignant neoplasm of intrathoracic lymph nodes; C78.7 Secondary malignant neoplasm of liver and intrahepatic bile duct; J96.11 Chronic respiratory failure with hypoxia; E78.5 Hyperlipidemia, unspecified; F17.200 Nicotine dependence, unspecified, uncomplicated; I10 Essential (primary) hypertension; I25.10 Atherosclerotic heart disease of native coronary artery without angina pectoris; I25.2 Old myocardial infarction; J44.9 Chronic obstructive pulmonary disease, unspecified; Z51.5 Encounter for palliative care; Z85.118 Personal history of other malignant neoplasm of bronchus and lung; Z90.710 Acquired absence of both cervix and uterus; Z90.49 Acquired absence of other specified parts of digestive tract
CPT/HCPCS: 94640; J2270; J2405; J7030; G0378